=== PATIENT | female | born 1960 | race Caucasian/White ===

== ENCOUNTER 2017-06-30 13:00 | Inpatient (IN) | payer MEDICAID ==
[~2017-06-30] VITALS: Ht 139.7 cm; Wt 89.1 kg
[~2017-06-30 13:00] MED LIST: BUTA-281 PO; DIPH25CA83 PO; GLYC1DRO OP; HYDR-3972 PO; MIRT15TA3 PO; QUET50TA PO; TRAM50TA2 PO; VALA10002 PO
[2017-06-30 13:33] LABS: BASOPHILS # (AUTO) 0.1 X10'3 (0-0.2); BASOPHILS % (AUTO) 0.6 % (0-1); EOSINOPHILS # (AUTO) 0.2 X10'3 (0-0.9); EOSINOPHILS % (AUTO) 1.8 % (0-6); HEMATOCRIT 44.1 % (35.0-45.0); HEMOGLOBIN 15.3 g/dl (12.0-16.0); LYMPHOCYTES # (AUTO) 3.6 X10'3 (1.1-4.8); LYMPHOCYTES % (AUTO) 29.4 % (21-51); MEAN CORPUSCULAR HEMOGLOBIN 32.7 PG (27.0-31.0); MEAN CORPUSCULAR HGB CONC 34.6 % (33.0-36.5); MEAN CORPUSCULAR VOLUME 94.6 FL (78-98); MEAN PLATELET VOLUME 7.4 FL (7.4-10.4); MONOCYTES # (AUTO) 0.5 X10'3 (0-0.9); MONOCYTES % (AUTO) 3.8 % (2-12); NEUTROPHILS # (AUTO) 7.8 X10'3 (1.8-7.7); NEUTROPHILS % (AUTO) 64.4 % (42-75); PLATELET COUNT 297 X10'3 (140-440); RED BLOOD COUNT 4.67 X10'6 (4.20-5.60); WHITE BLOOD COUNT 12.1 X10'3 (4.5-11.0)
[2017-06-30 13:44] LABS: INR 0.9 INR; PARTIAL THROMBOPLASTIN TIME 27 SECONDS (22-32); PROTHROMBIN TIME 9.7 SECONDS (9.0-12.0)
[2017-06-30 13:50] LABS: ALANINE AMINOTRANSFERASE 24 U/L (12-78); ALBUMIN 3.8 G/DL (3.4-5.0); ALBUMIN/GLOBULIN RATIO 0.9 (1.1-1.5); ALKALINE PHOSPHATASE 99 IU/L (46-116); ANION GAP 8 (8-16); ASPARTATE AMINO TRANSFERASE 14 U/L (10-37); BILIRUBIN,TOTAL 0.3 MG/DL (0.1-1.0); BLOOD UREA NITROGEN 17 MG/DL (7-18); BUN/CREATININE RATIO 18.9 (6.6-38.0); CALCIUM 9.2 MG/DL (8.5-10.1); CHLORIDE 107 MMOL/L (99-107); GLUCOSE 102 MG/DL (70-104); POTASSIUM 4.3 MMOL/L (3.5-5.1); SODIUM 140 MMOL/L (135-145); TOTAL CARBON DIOXIDE 25.5 MMOL/L (24-32); TOTAL PROTEIN 7.9 G/DL (6.4-8.2); eGFR 65 ML/MIN
[2017-06-30] MEDS ORDERED: normal saline 1000ML IV soln IVB ONE (14:30)
[2017-06-30] MEDS ORDERED: diphenhydrAMINE 50 mg/ml inj IV ONE (14:30)
[2017-06-30] MEDS ORDERED: meclizine 12.5mg tablet PO ONE (14:30)
[2017-06-30] MEDS ORDERED: LORazepam 2 mg/ml vial IV ONE (14:30)
[2017-06-30] MEDS ORDERED: ondansetron/PF 4mg/2ml inj IV ONE (14:30)
[2017-06-30] MEDS ORDERED: metoclopramide 5 mg/ml inj IV ONE (14:30)
[2017-06-30] MEDS ORDERED: morphine 4 MG/ML inj SYRINge IV ONE ×2 (14:45→16:00)
[2017-06-30] MEDS ORDERED: orphenadrine citrate 60mg/2ml inj. IM ONE (16:00)
[2017-06-30] MEDS ORDERED: acetaminophen 325mg tablet PO PRN (18:10)
[2017-06-30] MEDS ORDERED: ondansetron/PF 4mg/2ml inj IV PRN (18:10)
[2017-06-30] MEDS ORDERED: magnesium 4gm in 100ml NS 100 ML IV PRN (18:10)
[2017-06-30] MEDS ORDERED: magnesium Cl slow-release 64mg tablet PO PRN (18:10)
[2017-06-30] MEDS ORDERED: magnesium hydroxide 30ml (MOM) UD suspension PO PRN (18:10)
[2017-06-30] MEDS ORDERED: magnesium 2GM in 50ml NS 50 ML IV PRN (18:10)
[2017-06-30] MEDS ORDERED: aspirin 325mg tablet PO SCH (18:10)
[2017-06-30] MEDS ORDERED: morphine 2 MG/ML inj. syringe IV PRN (18:10)
[2017-06-30] MEDS ORDERED: HYDROmorphone 1 mg/ml syringe IV PRN (18:10)
[2017-06-30] MEDS ORDERED: potassium Cl 20 mEq SR tablet PO PRN ×2 (18:10)
[2017-06-30] MEDS ORDERED: mag hydrox/Alum hydrox/simeth 30ml oral suspension PO PRN (18:10)
[2017-06-30] MEDS ORDERED: potassium Cl 40MEQ/NS 500ml 500 ML IV PRN ×2 (18:10)
[2017-06-30] MEDS: normal saline 1000ml 1,000 ML IV SCH (18:38)
[2017-06-30] MEDS: morphine 5 MG/ML injection IV PRN ×2 (18:39→22:30)
[2017-06-30 19:30] VITALS: BP 141/88
[2017-06-30 19:40] LABS: HEMOGLOBIN A1C 5.5 % (4.5-6.2)
[2017-06-30] MEDS ORDERED: QUETIAPINE FUMARATE 150 MG PO SCH (21:00)
[2017-06-30] MEDS ORDERED: QUEtiapine 25mg tablet PO SCH (21:00)
[2017-06-30] MEDS ORDERED: sertraline 25mg tablet PO SCH (21:00)
[2017-06-30] MEDS ORDERED: mirtazapine 15mg tablet PO SCH (21:20)
[2017-06-30 22:00] VITALS: BP 137/96
[2017-07-01 02:00] VITALS: BP 117/71
[2017-07-01] MEDS: morphine 5 MG/ML injection IV PRN ×2 (02:38→06:38)
[2017-07-01 05:00] VITALS: BP 129/73
[2017-07-01 05:54] LABS: BASOPHILS % (AUTO) 0.3 % (0-1); EOSINOPHILS # (AUTO) 0.2 X10'3 (0-0.9); EOSINOPHILS % (AUTO) 2.4 % (0-6); HEMATOCRIT 35.7 % (35.0-45.0); HEMOGLOBIN 12.2 g/dl (12.0-16.0); LYMPHOCYTES # (AUTO) 3.6 X10'3 (1.1-4.8); LYMPHOCYTES % (AUTO) 43.4 % (21-51); MEAN CORPUSCULAR HEMOGLOBIN 32.4 PG (27.0-31.0); MEAN CORPUSCULAR HGB CONC 34.2 % (33.0-36.5); MEAN CORPUSCULAR VOLUME 94.7 FL (78-98); MEAN PLATELET VOLUME 7.9 FL (7.4-10.4); MONOCYTES # (AUTO) 0.5 X10'3 (0-0.9); MONOCYTES % (AUTO) 5.5 % (2-12); NEUTROPHILS % (AUTO) 48.4 % (42-75); PLATELET COUNT 216 X10'3 (140-440); RED BLOOD COUNT 3.77 X10'6 (4.20-5.60); RED CELL DISTRIBUTION WIDTH 14.1 % (11.5-14.5); WHITE BLOOD COUNT 8.3 X10'3 (4.5-11.0)
[2017-07-01 06:21] LABS: ALBUMIN 2.9 G/DL (3.4-5.0); ANION GAP 9 (8-16); BLOOD UREA NITROGEN 16 MG/DL (7-18); BUN/CREATININE RATIO 17.8 (6.6-38.0); CALCIUM 8.4 MG/DL (8.5-10.1); CHLORIDE 108 MMOL/L (99-107); CHOL/HDL RATIO 5.5 (0.00-4.99); CHOLESTEROL 255 MG/DL (0-200); GLUCOSE 104 MG/DL (70-104); HDL CHOLESTEROL 46 MG/DL (35-60); LDL CHOLESTEROL 180 MG/DL (50-100); MAGNESIUM 2.1 MG/DL (1.5-2.4); POTASSIUM 3.8 MMOL/L (3.5-5.1); SODIUM 142 MMOL/L (135-145); TOTAL CARBON DIOXIDE 24.9 MMOL/L (24-32); TRIGLYCERIDES 124 MG/DL (20-135); eGFR 65 ML/MIN
[2017-07-01] MEDS: normal saline 1000ml 1,000 ML IV SCH (07:32)
[2017-07-01] MEDS ORDERED: K and/or MAG REPLACEMENT MC SCH (08:00)
[2017-07-01] MEDS ORDERED: atorvastatin 20mg tablet PO SCH (08:00)
[2017-07-01] MEDS ORDERED: enoxaparin 40mg/0.4ml syringe SQ SCH (08:00)
[2017-07-01 10:00] VITALS: BP 132/70
== END 2017-07-01 10:15 | disposition left against medical advice (07) | DRG 58 ==
LOC: ER 13:01 → ED HOLD 18:06 → ORTHO 4S 19:22
PROVIDERS: ADMIT Internal Medicine; ATTEND Internal Medicine
DX: G93.2 Benign intracranial hypertension (principal); E43 Unspecified severe protein-calorie malnutrition; I11.0 Hypertensive heart disease with heart failure; I50.9 Heart failure, unspecified; F32.9 Major depressive disorder, single episode, unspecified; G31.9 Degenerative disease of nervous system, unspecified; I48.91 Unspecified atrial fibrillation; Z68.42 Body mass index [BMI] 45.0-49.9, adult; E66.01 Morbid (severe) obesity due to excess calories; F17.210 Nicotine dependence, cigarettes, uncomplicated; F41.9 Anxiety disorder, unspecified; G89.4 Chronic pain syndrome; I25.10 Atherosclerotic heart disease of native coronary artery without angina pectoris; Z86.711 Personal history of pulmonary embolism; Z86.73 Personal history of transient ischemic attack (TIA), and cerebral infarction without residual deficits; Z90.49 Acquired absence of other specified parts of digestive tract; Z53.21 Procedure and treatment not carried out due to patient leaving prior to being seen by health care provider
CPT/HCPCS: 36415; 70450; 71045; 80048; 80053; 80061; 82948; 83036; 83735; 84484; 85025; 85610; 85730; 87070; 92616; 93005; 93306; 96361; 96372; 96374; 96375; 97161; 97530; 99285; J1200; J1650; J2060; J2270; J2360; J2405; J2765; J7030; J8597

== ENCOUNTER 2017-07-10 13:59 | Emergency (ER) | payer MEDICAID ==
[~2017-07-10] VITALS: Ht 139.7 cm; Wt 85.0 kg
[~2017-07-10 13:59] MED LIST changes: -DIPH25CA83 PO; -GLYC1DRO OP; -VALA10002 PO
[2017-07-10] MEDS ORDERED: ondansetron 4mg rapidly disintigrating tab PO ONE (14:10)
[2017-07-10] MEDS ORDERED: morphine 4 MG/ML inj SYRINge IM ONE (14:10)
[2017-07-10] MEDS ORDERED: morphine 5 MG/ML injection IM ONE (14:25)
[2017-07-10] MEDS ORDERED: morphine 8mg/ml inj. syringe ONE (14:26)
[2017-07-10] MEDS ORDERED: morphine 8mg/ml inj. syringe IM ONE (14:30)
[2017-07-10 16:28] VITALS: BP 137/99
== END 2017-07-10 16:30 | disposition home or self-care (01) ==
LOC: ER 14:00
DX: S63.501A Unspecified sprain of right wrist, initial encounter (principal); S40.011A Contusion of right shoulder, initial encounter; S50.01XA Contusion of right elbow, initial encounter; I11.0 Hypertensive heart disease with heart failure; I50.9 Heart failure, unspecified; I25.10 Atherosclerotic heart disease of native coronary artery without angina pectoris; G89.29 Other chronic pain; E11.9 Type 2 diabetes mellitus without complications; I48.91 Unspecified atrial fibrillation; Z86.73 Personal history of transient ischemic attack (TIA), and cerebral infarction without residual deficits; Z86.711 Personal history of pulmonary embolism; Z90.49 Acquired absence of other specified parts of digestive tract; Z90.710 Acquired absence of both cervix and uterus; Z88.0 Allergy status to penicillin; Z88.6 Allergy status to analgesic agent; Z88.8 Allergy status to other drugs, medicaments and biological substances; Z91.010 Allergy to peanuts; W01.0XXA Fall on same level from slipping, tripping and stumbling without subsequent striking against object, initial encounter; Y93.89 Activity, other specified; Y92.89 Other specified places as the place of occurrence of the external cause; Y99.8 Other external cause status; Z88.1 Allergy status to other antibiotic agents; Z91.018 Allergy to other foods
CPT/HCPCS: 73030; 73080; 73110; 96372; 99284; A4565; J2270

== ENCOUNTER 2017-07-30 08:04 | Emergency (ER) | payer MEDICAID ==
[~2017-07-30] VITALS: Ht 144.8 cm; Wt 89.4 kg
[~2017-07-30 08:04] MED LIST changes: -TRAM50TA2 PO
[2017-07-30] MEDS ORDERED: normal saline 1000ML IV soln IVB ONE (09:05)
[2017-07-30] MEDS ORDERED: morphine 4 MG/ML inj SYRINge IV ONE (09:10)
[2017-07-30] MEDS ORDERED: diphenhydrAMINE 50 mg/ml inj IV ONE (09:10)
[2017-07-30] MEDS ORDERED: LORazepam 2 mg/ml vial IV ONE (09:10)
[2017-07-30] MEDS ORDERED: metoclopramide 5 mg/ml inj IV ONE (09:10)
[2017-07-30 09:42] LABS: BASOPHILS % (AUTO) 0.3 % (0-1); EOSINOPHILS # (AUTO) 0.2 X10'3 (0-0.9); EOSINOPHILS % (AUTO) 1.6 % (0-6); HEMATOCRIT 43.1 % (35.0-45.0); HEMOGLOBIN 15.1 g/dl (12.0-16.0); LYMPHOCYTES # (AUTO) 2.9 X10'3 (1.1-4.8); MEAN CORPUSCULAR HEMOGLOBIN 33.1 PG (27.0-31.0); MEAN CORPUSCULAR VOLUME 94.6 FL (78-98); MEAN PLATELET VOLUME 7.4 FL (7.4-10.4); MONOCYTES # (AUTO) 0.3 X10'3 (0-0.9); MONOCYTES % (AUTO) 2.5 % (2-12); NEUTROPHILS # (AUTO) 9.3 X10'3 (1.8-7.7); NEUTROPHILS % (AUTO) 72.6 % (42-75); PLATELET COUNT 266 X10'3 (140-440); RED BLOOD COUNT 4.56 X10'6 (4.20-5.60); RED CELL DISTRIBUTION WIDTH 14.2 % (11.5-14.5); WHITE BLOOD COUNT 12.8 X10'3 (4.5-11.0)
[2017-07-30 09:52] LABS: PARTIAL THROMBOPLASTIN TIME 26 SECONDS (22-32); PROTHROMBIN TIME 9.9 SECONDS (9.0-12.0)
[2017-07-30] MEDS ORDERED: diphenhydrAMINE 50 mg/ml inj ONE (10:34)
[2017-07-30 11:46] LABS: ALANINE AMINOTRANSFERASE 33 U/L (12-78); ALBUMIN 3.5 G/DL (3.4-5.0); ALBUMIN/GLOBULIN RATIO 0.9 (1.1-1.5); ALKALINE PHOSPHATASE 126 IU/L (46-116); ANION GAP 10 (8-16); ASPARTATE AMINO TRANSFERASE 15 U/L (10-37); BILIRUBIN,TOTAL 0.2 MG/DL (0.1-1.0); BLOOD UREA NITROGEN 14 MG/DL (7-18); BUN/CREATININE RATIO 16.1 (6.6-38.0); CALCIUM 8.8 MG/DL (8.5-10.1); CHLORIDE 105 MMOL/L (99-107); CREATININE 0.87 MG/DL (0.40-0.90); GLUCOSE 94 MG/DL (70-104); POTASSIUM 4.1 MMOL/L (3.5-5.1); SODIUM 140 MMOL/L (135-145); TOTAL CARBON DIOXIDE 24.6 MMOL/L (24-32); TOTAL PROTEIN 7.6 G/DL (6.4-8.2); eGFR 68 ML/MIN
[2017-07-30 11:49] LABS: ETHANOL < 0.010 GM/DL (0.0-0.010)
[2017-07-30 12:32] VITALS: BP 125/97
[2017-07-30 12:50] LABS: CLARITY,URINE SLIGHTLY CLOUDY (Clear); COLOR,URINE YELLOW (Yellow); GLUCOSE, URINE NEGATIVE (Neg); KETONES,URINE NEGATIVE (Neg); LEUKOCYTE ESTERASE ,URINE NEGATIVE (Neg); NITRITES, URINE NEGATIVE (Neg); OCCULT BLOOD,URINE LARGE (Neg); PROTEIN,URINE TRACE mg/dl (Neg); UROBILINOGEN,URINE 0.2 E.U/dL (0.2-1.0)
[2017-07-30 13:01] LABS: UA COLLECTION TYPE CLN CATCH MIDSTREAM
[2017-07-30 13:02] LABS: BACTERIA,URINE 2+ /HPF (Neg); MUCUS STRANDS FEW /LPF (Neg); RBC,URINE 20-50 /HPF (0-2); SQUAMOUS EPITHELIAL CELL,UR MANY /LPF (FEW); WBC,URINE 0-4 /HPF (0-4)
[2017-07-30 13:03] LABS: URINE AMPHETAMINE SCREEN NEGATIVE (Neg); URINE BARBITUATE SCREEN POSITIVE (Neg); URINE BENZODIAZEPINES SCREEN NEGATIVE (Neg); URINE CANNABINOID SCREEN NEGATIVE (Neg); URINE COCAINE SCREEN NEGATIVE (Neg); URINE METHADONE SCREEN NEGATIVE (Neg); URINE OPIATE SCREEN POSITIVE (Neg); URINE PHENCYCLIDINE SCREEN NEGATIVE (Neg)
== END 2017-07-30 12:25 | disposition home or self-care (01) ==
LOC: ER 08:05
DX: R51 Headache (principal); G93.2 Benign intracranial hypertension; R11.2 Nausea with vomiting, unspecified; G89.29 Other chronic pain; G43.909 Migraine, unspecified, not intractable, without status migrainosus; Z86.73 Personal history of transient ischemic attack (TIA), and cerebral infarction without residual deficits; I10 Essential (primary) hypertension; I48.91 Unspecified atrial fibrillation; Z86.14 Personal history of Methicillin resistant Staphylococcus aureus infection; Z90.49 Acquired absence of other specified parts of digestive tract; Z90.710 Acquired absence of both cervix and uterus; Z88.0 Allergy status to penicillin; Z88.6 Allergy status to analgesic agent; Z88.1 Allergy status to other antibiotic agents; Z88.8 Allergy status to other drugs, medicaments and biological substances; Z91.018 Allergy to other foods; Z91.010 Allergy to peanuts; Z56.0 Unemployment, unspecified
CPT/HCPCS: 36415; 70450; 71045; 80053; 80305; 80320; 81001; 84484; 85025; 85610; 85730; 93005; 96361; 96374; 96375; 99285; J1200; J2060; J2270; J7030

== ENCOUNTER 2017-10-09 19:27 | Emergency (ER) | payer MEDICAID ==
[~2017-10-09] VITALS: Ht 142.2 cm; Wt 86.8 kg
[2017-10-09] MEDS ORDERED: HYDROcodone/acetaminophen 5mg/325mg tablet PO ONE (20:30)
[2017-10-09 20:53] VITALS: BP 134/114
[2017-10-11] MEDS ORDERED: TRAM50TA2 PO (14:15)
== END 2017-10-09 20:56 | disposition home or self-care (01) ==
LOC: ER 19:27
DX: M25.562 Pain in left knee (principal); I10 Essential (primary) hypertension; G43.909 Migraine, unspecified, not intractable, without status migrainosus; G89.29 Other chronic pain; I48.91 Unspecified atrial fibrillation; Z86.73 Personal history of transient ischemic attack (TIA), and cerebral infarction without residual deficits; Z86.14 Personal history of Methicillin resistant Staphylococcus aureus infection; Z90.49 Acquired absence of other specified parts of digestive tract; Z90.710 Acquired absence of both cervix and uterus; Z88.0 Allergy status to penicillin; Z88.6 Allergy status to analgesic agent; Z88.1 Allergy status to other antibiotic agents; Z91.010 Allergy to peanuts; Z91.018 Allergy to other foods; Z56.0 Unemployment, unspecified
CPT/HCPCS: 99284

== ENCOUNTER 2017-10-12 05:29 | Inpatient (IN) | payer MEDICAID ==
[2017-10-11 15:17] LABS: BASOPHILS # (AUTO) 0.1 X10'3 (0-0.2); BASOPHILS % (AUTO) 0.8 % (0-1); EOSINOPHILS # (AUTO) 0.2 X10'3 (0-0.9); EOSINOPHILS % (AUTO) 2.3 % (0-6); LYMPHOCYTES # (AUTO) 3.9 X10'3 (1.1-4.8); LYMPHOCYTES % (AUTO) 40.6 % (21-51); MEAN CORPUSCULAR HGB CONC 34.5 % (33.0-36.5); MEAN CORPUSCULAR VOLUME 95.4 FL (78-98); MEAN PLATELET VOLUME 8.1 FL (7.4-10.4); MONOCYTES # (AUTO) 0.4 X10'3 (0-0.9); NEUTROPHILS % (AUTO) 52.3 % (42-75); PRE OP HEMATOCRIT 41.3 % (35.0-45.0); PRE OP HEMOGLOBIN 14.3 g/dL (12.0-16.0); PRE OP PLATELET COUNT 260 X10'3 (140-440); RED BLOOD COUNT 4.33 X10'6 (4.20-5.60); RED CELL DISTRIBUTION WIDTH 14.4 % (11.5-14.5)
[2017-10-11 15:36] LABS: ALBUMIN 3.4 G/DL (3.4-5.0); ALBUMIN/GLOBULIN RATIO 0.9 (1.1-1.5); ALKALINE PHOSPHATASE 144 IU/L (46-116); BLOOD UREA NITROGEN 10 MG/DL (7-18); BUN/CREATININE RATIO 11.4 (6.6-38.0); CALCIUM 8.8 MG/DL (8.5-10.1); CHLORIDE 106 MMOL/L (99-107); CREATININE 0.88 MG/DL (0.40-0.90); PRE OP ANION GAP 9 (8-16); PRE OP AST 87 U/L (10-37); PRE OP BILIRUB, TOTAL 0.3 MG/DL (0.0-1.0); PRE OP GLUCOSE 115 MG/DL (70-104); PRE OP POTASSIUM 3.7 MMOL/L (3.4-5.1); PRE OP SODIUM 142 MMOL/L (135-145); TOTAL CARBON DIOXIDE 26.8 MMOL/L (24-32); eGFR 67 ML/MIN
[2017-10-11 15:39] LABS: PRE OP ALT 109 U/L (30-65)
[2017-10-12] VITALS (21 sets, daily range): BP systolic 104–151; BP diastolic 54–116
[~2017-10-12] VITALS: Ht 147.3 cm; Wt 86.6 kg
[~2017-10-12 05:29] MED LIST changes: +TRAM50TA2 PO; +ringers solution, lacted 1,000 ML IV SCH
[2017-10-12] MEDS ORDERED: famotidine 20mg tablet PO ONE (05:30)
[2017-10-12] MEDS ORDERED: LIDOcaine 1% (10mg/ml) 2ml vial ONE (06:04)
[2017-10-12] MEDS ORDERED: TRANEXAMIC ACID IV ONE ×2 (06:15→08:00)
[2017-10-12] MEDS ORDERED: NORMAL SALINE IV ONE ×2 (06:15→08:00)
[2017-10-12] MEDS ORDERED: scopolamine 1.5mg patch.TD72 TD ONE (06:35)
[2017-10-12] MEDS ORDERED: ROPIVAcaine 0.5% (5mg/ml) 30ml vial ONE (06:53)
[2017-10-12] MEDS ORDERED: cloNIDine hcl/PF 100mcg/ml inj ONE (06:53)
[2017-10-12] MEDS ORDERED: MIDAZolam 5mg/5ml vial ONE (06:57)
[2017-10-12] MEDS ORDERED: fentaNYL /PF 50mcg/ml 5ml ampule ONE (06:57)
[2017-10-12] MEDS ORDERED: clindamycin phosphate 150mg/ml inj. ONE (07:48)
[2017-10-12] MEDS ORDERED: ondansetron/PF 4mg/2ml inj ONE (07:52)
[2017-10-12] MEDS ORDERED: dexamethasone sod phosphate 4mg/ml inj. ONE (07:53)
[2017-10-12] MEDS: traMADol 50MG tablet PO SCH ×3 (08:00→20:41)
[2017-10-12] MEDS ORDERED: ringers solution, lacted 1,000 ML IV SCH (08:13)
[2017-10-12] MEDS ORDERED: ondansetron/PF 4mg/2ml inj IV PRN ×2 (08:15→08:30)
[2017-10-12] MEDS ORDERED: fentaNYL/PF 50MCG/1 ML 2ML syringe IV PRN ×2 (08:15)
[2017-10-12] MEDS ORDERED: hydrALAZINE 20mg/ml inj. IV PRN (08:15)
[2017-10-12] MEDS ORDERED: labetalol 20mg/4ml (5mg/ml) syringe IV PRN (08:15)
[2017-10-12] MEDS ORDERED: morphine 4 MG/ML inj SYRINge IV PRN ×2 (08:15)
[2017-10-12] MEDS ORDERED: magnesium hydroxide 30ml (MOM) UD suspension PO PRN (08:30)
[2017-10-12] MEDS ORDERED: acetaminophen 325mg tablet PO PRN (08:30)
[2017-10-12] MEDS ORDERED: HYDROmorphone inj. 0.5 MG/0.5 ML DISP.SYRIN IV PRN ×2 (08:30)
[2017-10-12] MEDS ORDERED: HYDROcodone/acetaminophen 10/325mg tab PO PRN ×2 (08:30)
[2017-10-12] MEDS ORDERED: diphenhydrAMINE 25mg capsule PO PRN ×2 (08:30)
[2017-10-12] MEDS ORDERED: bisacodyl 10mg suppository rectal RC PRN (08:30)
[2017-10-12] MEDS: aspirin 325mg tablet PO SCH (08:30)
[2017-10-12 11:08] LABS: APPEARANCE,SYNOVIAL FLUID CLOUDY; COLOR,SYNOVIAL FLUID YELLOW
[2017-10-12 11:09] LABS: NEUTROPHILS,SYNOVIAL FLUID 15 % (0-25); SYN RBC 530 /CU MM (0); SYN WBC 145 /CU MM (0-200)
[2017-10-12 11:11] LABS: LYMPHOCYTES,SYNOVIAL FLUID 65 % (0-75); MONOCYTES,SYNOVIAL FLUID 20 % (0-0)
[2017-10-12] MEDS ORDERED: diphenhydrAMINE 50 mg/ml inj IV PRN (11:50)
[2017-10-12] MEDS ORDERED: butalbital/acetaminophen/caffeine (Fioricet) tablet PO PRN (12:00)
[2017-10-12] MEDS: acetaminophen 325mg tablet PO SCH ×2 (12:45→20:00)
[2017-10-12] MEDS ORDERED: ketorolac tromethamine 15mg/ml inj. IV SCH (14:00)
[2017-10-12] MEDS ORDERED: traMADol 50MG tablet PO SCH (14:00)
[2017-10-12] MEDS ORDERED: oxyCODONE IR 5mg (immed. release) tablet PO PRN (16:00)
[2017-10-12] MEDS: potassium cl 20mEq in 1/2 NS 1,000 ML IV SCH ×2 (16:21→20:00)
[2017-10-12] MEDS: clindamycin-Cleocin 900mg/D5W 50 ML IV SCH (16:21)
[2017-10-12] MEDS: oxyCODONE IR 5mg (immed. release) tablet PO PRN ×2 (16:22→20:42)
[2017-10-12] MEDS ORDERED: vancomycin/NS 1 GM ADD-VANTAGE 250 ML IV SCH (20:00)
[2017-10-12] MEDS: lactobacillus rhamnosus 10,000 MMU CELLS/CAPSULE PO SCH (20:41)
[2017-10-12] MEDS ORDERED: non-formulary drug (Mirtazapine (Remeron) 1 TAB) PO SCH (21:00)
[2017-10-12] MEDS ORDERED: quetiapine 100mg tablet PO SCH (21:00)
[2017-10-12] MEDS ORDERED: sennosides 8.6mg tablet PO SCH (21:00)
[2017-10-12] MEDS ORDERED: QUETIAPINE FUMARATE 150 MG PO SCH (21:00)
[2017-10-12] MEDS ORDERED: mirtazapine 15mg tablet PO SCH (21:00)
[2017-10-13] MEDS: clindamycin-Cleocin 900mg/D5W 50 ML IV SCH ×2 (00:19→08:14)
[2017-10-13] MEDS: oxyCODONE IR 5mg (immed. release) tablet PO PRN ×4 (00:20→12:17)
[2017-10-13 02:00] VITALS: BP 110/66
[2017-10-13] MEDS: acetaminophen 325mg tablet PO SCH ×3 (02:00→13:18)
[2017-10-13] MEDS: traMADol 50MG tablet PO SCH ×3 (02:21→15:19)
[2017-10-13] MEDS: potassium cl 20mEq in 1/2 NS 1,000 ML IV SCH ×2 (02:21→08:27)
[2017-10-13 04:51] LABS: BASOPHILS % (AUTO) 0.2 % (0-1); EOSINOPHILS # (AUTO) 0.2 X10'3 (0-0.9); HEMATOCRIT 37.3 % (35.0-45.0); HEMOGLOBIN 12.6 g/dl (12.0-16.0); LYMPHOCYTES # (AUTO) 3.8 X10'3 (1.1-4.8); MEAN CORPUSCULAR HEMOGLOBIN 32.5 PG (27.0-31.0); MEAN CORPUSCULAR HGB CONC 33.9 % (33.0-36.5); MEAN CORPUSCULAR VOLUME 95.7 FL (78-98); MEAN PLATELET VOLUME 8.1 FL (7.4-10.4); MONOCYTES # (AUTO) 0.7 X10'3 (0-0.9); MONOCYTES % (AUTO) 4.7 % (2-12); NEUTROPHILS # (AUTO) 9.9 X10'3 (1.8-7.7); NEUTROPHILS % (AUTO) 68.1 % (42-75); PLATELET COUNT 218 X10'3 (140-440); RED CELL DISTRIBUTION WIDTH 13.9 % (11.5-14.5); WHITE BLOOD COUNT 14.6 X10'3 (4.5-11.0)
[2017-10-13] MEDS ORDERED: clindamycin-Cleocin 900mg/D5W 50 ML IV ONE (05:30)
[2017-10-13] MEDS ORDERED: vancomycin inj 1,500 MG in normal saline 300ml IV soln IV ONE (05:30)
[2017-10-13 07:01] VITALS: BP 147/72
[2017-10-13 07:51] LABS: ANION GAP 8 (8-16); CHLORIDE 106 MMOL/L (99-107); POTASSIUM 4.5 MMOL/L (3.5-5.1); SODIUM 140 MMOL/L (135-145); TOTAL CARBON DIOXIDE 26.5 MMOL/L (24-32)
[2017-10-13] MEDS: lactobacillus rhamnosus 10,000 MMU CELLS/CAPSULE PO SCH (08:13)
[2017-10-13] MEDS: aspirin 325mg tablet PO SCH (08:14)
[2017-10-13 11:13] VITALS: BP 120/69
[2017-10-13] MEDS ORDERED: celeCOXIB 100mg capsule PO SCH (20:00)
[2017-10-14] MEDS ORDERED: acetaminophen 325mg tablet PO PRN (08:30)
== END 2017-10-13 16:16 | disposition home or self-care (01) | DRG 317 ==
LOC: PAS IN 05:29 → EDSTATUS 07:00 → ORTHO 4S 10:25
PROVIDERS: ADMIT Orthopaedic Surgery; ATTEND Orthopaedic Surgery
PROC: 0LSR0ZZ Reposition Left Knee Tendon, Open Approach (ICD-10-PCS; principal; 2017-10-12 06:55)
DX: S76.112A Strain of left quadriceps muscle, fascia and tendon, initial encounter (principal); I10 Essential (primary) hypertension; I48.91 Unspecified atrial fibrillation; F41.0 Panic disorder [episodic paroxysmal anxiety]; G43.909 Migraine, unspecified, not intractable, without status migrainosus; G93.2 Benign intracranial hypertension; Z96.652 Presence of left artificial knee joint; F43.10 Post-traumatic stress disorder, unspecified; X58.XXXA Exposure to other specified factors, initial encounter; Y93.89 Activity, other specified; Y92.89 Other specified places as the place of occurrence of the external cause; G89.29 Other chronic pain
CPT/HCPCS: 36415; 71045; 80051; 80053; 85025; 87070; 87075; 89051; 93005; 97116; 97162; 97530; A6449; A7000; J0735; J1100; J1200; J2250; J2270; J2405; J2795; J3010; J3370; J3490; J7030; J7120

== ENCOUNTER 2017-10-24 16:23 | Emergency (ER) | payer MEDICAID ==
[~2017-10-24] VITALS: Ht 144.8 cm; Wt 87.6 kg
[~2017-10-24 16:23] MED LIST changes: +CLIN-80 PO; +ONDA4TAB6 PO; -ringers solution, lacted 1,000 ML IV SCH
[2017-10-24] MEDS ORDERED: clindamycin 600mg/D5W 50ml 50 ML IV ONE (17:15)
[2017-10-24] MEDS ORDERED: ondansetron/PF 4mg/2ml inj IV ONE (17:15)
[2017-10-24] MEDS ORDERED: vancomycin/NS 1 GM ADD-VANTAGE 250 ML IV ONE (17:15)
[2017-10-24] MEDS ORDERED: morphine 4 MG/ML inj SYRINge IV ONE (17:15)
[2017-10-24 17:56] LABS: BASOPHILS # (AUTO) 0.1 X10'3 (0-0.2); BASOPHILS % (AUTO) 0.7 % (0-1); EOSINOPHILS # (AUTO) 0.1 X10'3 (0-0.9); HEMATOCRIT 40.8 % (35.0-45.0); HEMOGLOBIN 13.9 g/dl (12.0-16.0); LYMPHOCYTES # (AUTO) 2.8 X10'3 (1.1-4.8); LYMPHOCYTES % (AUTO) 26.2 % (21-51); MEAN CORPUSCULAR HEMOGLOBIN 32.5 PG (27.0-31.0); MEAN CORPUSCULAR HGB CONC 34.1 % (33.0-36.5); MEAN CORPUSCULAR VOLUME 95.4 FL (78-98); MEAN PLATELET VOLUME 8.1 FL (7.4-10.4); MONOCYTES # (AUTO) 0.3 X10'3 (0-0.9); MONOCYTES % (AUTO) 2.9 % (2-12); NEUTROPHILS # (AUTO) 7.4 X10'3 (1.8-7.7); NEUTROPHILS % (AUTO) 69.2 % (42-75); PLATELET COUNT 347 X10'3 (140-440); RED BLOOD COUNT 4.27 X10'6 (4.20-5.60); RED CELL DISTRIBUTION WIDTH 14.3 % (11.5-14.5); WHITE BLOOD COUNT 10.6 X10'3 (4.5-11.0)
[2017-10-24 17:58] LABS: PARTIAL THROMBOPLASTIN TIME 27 SECONDS (22-32)
[2017-10-24 18:03] LABS: ALANINE AMINOTRANSFERASE 49 U/L (12-78); ALBUMIN 3.4 G/DL (3.4-5.0); ALBUMIN/GLOBULIN RATIO 0.9 (1.1-1.5); ALKALINE PHOSPHATASE 174 IU/L (46-116); ANION GAP 10 (8-16); ASPARTATE AMINO TRANSFERASE 16 U/L (10-37); BILIRUBIN,TOTAL 0.3 MG/DL (0.1-1.0); BLOOD UREA NITROGEN 9 MG/DL (7-18); BUN/CREATININE RATIO 10.1 (6.6-38.0); CALCIUM 9.2 MG/DL (8.5-10.1); CHLORIDE 104 MMOL/L (99-107); CREATININE 0.89 MG/DL (0.40-0.90); GLUCOSE 102 MG/DL (70-104); MAGNESIUM 2.2 MG/DL (1.5-2.4); POTASSIUM 3.7 MMOL/L (3.5-5.1); SODIUM 141 MMOL/L (135-145); TOTAL CARBON DIOXIDE 27.4 MMOL/L (24-32); TOTAL PROTEIN 7.4 G/DL (6.4-8.2); eGFR 66 ML/MIN
[2017-10-24 20:01] VITALS: BP 161/66
== END 2017-10-24 20:03 | disposition home or self-care (01) ==
LOC: ER 16:23
DX: M25.562 Pain in left knee (principal); R11.2 Nausea with vomiting, unspecified; I10 Essential (primary) hypertension; G43.909 Migraine, unspecified, not intractable, without status migrainosus; G89.29 Other chronic pain; Z86.14 Personal history of Methicillin resistant Staphylococcus aureus infection; Z86.73 Personal history of transient ischemic attack (TIA), and cerebral infarction without residual deficits; F17.200 Nicotine dependence, unspecified, uncomplicated; Z88.6 Allergy status to analgesic agent; Z88.1 Allergy status to other antibiotic agents; Z91.010 Allergy to peanuts; Z88.0 Allergy status to penicillin; Z88.8 Allergy status to other drugs, medicaments and biological substances; Z91.018 Allergy to other foods; Z79.899 Other long term (current) drug therapy
CPT/HCPCS: 36415; 80053; 83605; 83735; 84145; 85025; 85610; 85730; 96365; 96375; 99284; J2270; J2405; J3370; J3490; J7030

== ENCOUNTER 2017-12-15 15:46 | Emergency (ER) | payer MEDICAID ==
[~2017-12-15] VITALS: Ht 142.2 cm; Wt 80.5 kg
[~2017-12-15 15:46] MED LIST changes: -CLIN-80 PO
[2017-12-15 16:19] LABS: BASOPHILS # (AUTO) 0.2 X10'3 (0-0.2); EOSINOPHILS # (AUTO) 0.2 X10'3 (0-0.9); EOSINOPHILS % (AUTO) 1.2 % (0-6); HEMATOCRIT 48.3 % (35.0-45.0); HEMOGLOBIN 16.6 g/dl (12.0-16.0); LYMPHOCYTES # (AUTO) 4.7 X10'3 (1.1-4.8); LYMPHOCYTES % (AUTO) 30.2 % (21-51); MEAN CORPUSCULAR HEMOGLOBIN 32.4 PG (27.0-31.0); MEAN CORPUSCULAR HGB CONC 34.3 % (33.0-36.5); MEAN CORPUSCULAR VOLUME 94.5 FL (78-98); MEAN PLATELET VOLUME 8.2 FL (7.4-10.4); MONOCYTES # (AUTO) 0.2 X10'3 (0-0.9); MONOCYTES % (AUTO) 1.4 % (2-12); NEUTROPHILS # (AUTO) 10.3 X10'3 (1.8-7.7); NEUTROPHILS % (AUTO) 66.2 % (42-75); PLATELET COUNT 327 X10'3 (140-440); RED BLOOD COUNT 5.12 X10'6 (4.20-5.60); RED CELL DISTRIBUTION WIDTH 14.1 % (11.5-14.5); WHITE BLOOD COUNT 15.6 X10'3 (4.5-11.0)
[2017-12-15 16:29] LABS: PARTIAL THROMBOPLASTIN TIME 27 SECONDS (22-32); PROTHROMBIN TIME 10.7 SECONDS (9.0-12.0)
[2017-12-15 16:34] LABS: ALANINE AMINOTRANSFERASE 27 U/L (12-78); ALBUMIN 3.8 G/DL (3.4-5.0); ALBUMIN/GLOBULIN RATIO 0.8 (1.1-1.5); ALKALINE PHOSPHATASE 140 IU/L (46-116); ANION GAP 15 (8-16); ASPARTATE AMINO TRANSFERASE 16 U/L (10-37); BILIRUBIN,TOTAL 0.4 MG/DL (0.1-1.0); BLOOD UREA NITROGEN 10 MG/DL (7-18); BUN/CREATININE RATIO 7.3 (6.6-38.0); CALCIUM 9.4 MG/DL (8.5-10.1); CHLORIDE 104 MMOL/L (99-107); CREATININE 1.37 MG/DL (0.40-0.90); GLUCOSE 154 MG/DL (70-104); POTASSIUM 3.4 MMOL/L (3.5-5.1); SODIUM 139 MMOL/L (135-145); TOTAL PROTEIN 8.3 G/DL (6.4-8.2); eGFR 40 ML/MIN
[2017-12-15 17:36] VITALS: BP 144/74
[2017-12-17] MEDS ORDERED: DOXY100C43 PO (12:26)
[2017-12-17] MEDS ORDERED: SULF1TAB49 PO (12:26)
[2017-12-17] MEDS ORDERED: MUPI22OI30 TOP (12:28)
== END 2017-12-15 17:42 | disposition home or self-care (01) ==
LOC: ER 15:46
DX: R07.9 Chest pain, unspecified (principal); R11.2 Nausea with vomiting, unspecified; G43.909 Migraine, unspecified, not intractable, without status migrainosus; I48.91 Unspecified atrial fibrillation; I12.9 Hypertensive chronic kidney disease with stage 1 through stage 4 chronic kidney disease, or unspecified chronic kidney disease; N18.9 Chronic kidney disease, unspecified; G89.29 Other chronic pain; Z86.14 Personal history of Methicillin resistant Staphylococcus aureus infection; Z90.49 Acquired absence of other specified parts of digestive tract; Z90.710 Acquired absence of both cervix and uterus; Z88.0 Allergy status to penicillin; Z88.6 Allergy status to analgesic agent; Z88.1 Allergy status to other antibiotic agents; Z91.010 Allergy to peanuts; Z88.8 Allergy status to other drugs, medicaments and biological substances; Z91.018 Allergy to other foods; Z79.899 Other long term (current) drug therapy; Z56.0 Unemployment, unspecified
CPT/HCPCS: 36415; 80053; 84484; 85025; 85379; 85610; 85730; 93005; 99285

== ENCOUNTER 2017-12-19 14:11 | Emergency (ER) | payer MEDICAID ==
[~2017-12-19] VITALS: Ht 142.2 cm; Wt 48.5 kg
[~2017-12-19 14:11] MED LIST changes: +DOXY100C43 PO; +MUPI22OI30 TOP
[2017-12-19 14:16] VITALS: BP 115/79
[2017-12-19] MEDS ORDERED: LIDOcaine 1.5% w/epinephrine 1:200,000 5ml ampul IJ ONE (14:45)
[2017-12-19] MEDS ORDERED: ONDA4TAB6 PO (15:11)
== END 2017-12-19 15:20 | disposition home or self-care (01) ==
LOC: ER 14:12
DX: L02.01 Cutaneous abscess of face (principal); G43.909 Migraine, unspecified, not intractable, without status migrainosus; I10 Essential (primary) hypertension; I48.91 Unspecified atrial fibrillation; Z86.711 Personal history of pulmonary embolism; Z86.14 Personal history of Methicillin resistant Staphylococcus aureus infection; Z86.73 Personal history of transient ischemic attack (TIA), and cerebral infarction without residual deficits; Z90.49 Acquired absence of other specified parts of digestive tract; Z90.710 Acquired absence of both cervix and uterus; Z98.890 Other specified postprocedural states; Z56.0 Unemployment, unspecified; Z88.0 Allergy status to penicillin; Z88.6 Allergy status to analgesic agent; Z91.010 Allergy to peanuts; Z88.8 Allergy status to other drugs, medicaments and biological substances; Z79.899 Other long term (current) drug therapy
CPT/HCPCS: 10060; 99283; J3490

== ENCOUNTER 2018-01-11 18:15 | Emergency (ER) | payer MEDICAID ==
[~2018-01-11] VITALS: Ht 142.2 cm; Wt 84.1 kg
[~2018-01-11 18:15] MED LIST changes: -DOXY100C43 PO; -MUPI22OI30 TOP
[2018-01-11 19:38] VITALS: BP 135/89
== END 2018-01-11 19:39 | disposition home or self-care (01) ==
LOC: ER 18:15
DX: M79.662 Pain in left lower leg (principal); G43.909 Migraine, unspecified, not intractable, without status migrainosus; I48.91 Unspecified atrial fibrillation; I10 Essential (primary) hypertension; G89.29 Other chronic pain; Z90.49 Acquired absence of other specified parts of digestive tract; Z98.890 Other specified postprocedural states; Z90.710 Acquired absence of both cervix and uterus; Z56.0 Unemployment, unspecified; Z86.711 Personal history of pulmonary embolism; Z86.73 Personal history of transient ischemic attack (TIA), and cerebral infarction without residual deficits; Z88.0 Allergy status to penicillin; Z88.6 Allergy status to analgesic agent; Z91.010 Allergy to peanuts; Z88.8 Allergy status to other drugs, medicaments and biological substances; Z79.899 Other long term (current) drug therapy; Z96.652 Presence of left artificial knee joint; W19.XXXA Unspecified fall, initial encounter; Y93.89 Activity, other specified; Y92.89 Other specified places as the place of occurrence of the external cause; Y99.9 Unspecified external cause status
CPT/HCPCS: 73590; 99284; A6449

== ENCOUNTER 2018-03-25 16:34 | Emergency (ER) | payer MEDICAID ==
[~2018-03-25] VITALS: Ht 144.8 cm; Wt 79.5 kg
[2018-03-25 16:38] VITALS: BP 135/88
[2018-03-25 17:43] LABS: CLARITY,URINE CLOUDY (Clear); COLOR,URINE YELLOW (Yellow); GLUCOSE, URINE NEGATIVE (Neg); KETONES,URINE NEGATIVE (Neg); LEUKOCYTE ESTERASE ,URINE NEGATIVE (Neg); NITRITES, URINE NEGATIVE (Neg); OCCULT BLOOD,URINE SMALL (Neg); PROTEIN,URINE NEGATIVE (Neg); UROBILINOGEN,URINE 0.2 E.U/dL (0.2-1.0)
[2018-03-25 17:48] LABS: BASOPHILS # (AUTO) 0.2 X10'3 (0-0.2); BASOPHILS % (AUTO) 1.3 % (0-1); EOSINOPHILS # (AUTO) 0.2 X10'3 (0-0.9); EOSINOPHILS % (AUTO) 1.5 % (0-6); HEMATOCRIT 42.4 % (35.0-45.0); HEMOGLOBIN 14.3 g/dl (12.0-16.0); LYMPHOCYTES # (AUTO) 4.3 X10'3 (1.1-4.8); LYMPHOCYTES % (AUTO) 34.8 % (21-51); MEAN CORPUSCULAR HEMOGLOBIN 32.1 PG (27.0-31.0); MEAN CORPUSCULAR HGB CONC 33.7 % (33.0-36.5); MEAN CORPUSCULAR VOLUME 95.4 FL (78-98); MEAN PLATELET VOLUME 8.1 FL (7.4-10.4); MONOCYTES # (AUTO) 0.5 X10'3 (0-0.9); MONOCYTES % (AUTO) 3.8 % (2-12); NEUTROPHILS # (AUTO) 7.2 X10'3 (1.8-7.7); NEUTROPHILS % (AUTO) 58.6 % (42-75); PLATELET COUNT 276 X10'3 (140-440); RED BLOOD COUNT 4.44 X10'6 (4.20-5.60); RED CELL DISTRIBUTION WIDTH 14.3 % (11.5-14.5); WHITE BLOOD COUNT 12.3 X10'3 (4.5-11.0)
[2018-03-25 17:49] LABS: UA COLLECTION TYPE CLN CATCH MIDSTREAM
[2018-03-25 17:58] LABS: BACTERIA,URINE 3+ /HPF (Neg); MUCUS STRANDS MANY /LPF (Neg); SQUAMOUS EPITHELIAL CELL,UR MANY /LPF (FEW)
[2018-03-25] MEDS ORDERED: ondansetron 4mg rapidly disintigrating tab PO ONE (18:00)
[2018-03-25] MEDS ORDERED: diphenhydrAMINE 50 mg/ml inj IM ONE (18:00)
[2018-03-25 18:04] LABS: ALANINE AMINOTRANSFERASE 28 U/L (12-78); ALBUMIN 3.5 G/DL (3.4-5.0); ALBUMIN/GLOBULIN RATIO 0.9 (1.1-1.5); ALKALINE PHOSPHATASE 108 IU/L (46-116); ANION GAP 10 (8-16); ASPARTATE AMINO TRANSFERASE 15 U/L (10-37); BILIRUBIN,TOTAL 0.3 MG/DL (0.1-1.0); BLOOD UREA NITROGEN 11 MG/DL (7-18); BUN/CREATININE RATIO 13.8 (6.6-38.0); CALCIUM 9.2 MG/DL (8.5-10.1); CHLORIDE 106 MMOL/L (99-107); GLUCOSE 91 MG/DL (70-104); POTASSIUM 3.5 MMOL/L (3.5-5.1); SODIUM 142 MMOL/L (135-145); TOTAL CARBON DIOXIDE 26.5 MMOL/L (24-32); TOTAL PROTEIN 7.3 G/DL (6.4-8.2); eGFR 74 ML/MIN
== END 2018-03-25 18:44 | disposition home or self-care (01) ==
LOC: ER 16:36
DX: S30.0XXA Contusion of lower back and pelvis, initial encounter (principal); R11.0 Nausea; R10.9 Unspecified abdominal pain; G43.909 Migraine, unspecified, not intractable, without status migrainosus; I48.91 Unspecified atrial fibrillation; G89.29 Other chronic pain; I25.10 Atherosclerotic heart disease of native coronary artery without angina pectoris; I11.0 Hypertensive heart disease with heart failure; I50.9 Heart failure, unspecified; Z88.0 Allergy status to penicillin; Z88.6 Allergy status to analgesic agent; Z91.010 Allergy to peanuts; Z88.1 Allergy status to other antibiotic agents; Z88.8 Allergy status to other drugs, medicaments and biological substances; Z91.018 Allergy to other foods; Z86.718 Personal history of other venous thrombosis and embolism; Z86.73 Personal history of transient ischemic attack (TIA), and cerebral infarction without residual deficits; Z90.49 Acquired absence of other specified parts of digestive tract; Z90.710 Acquired absence of both cervix and uterus; Z98.890 Other specified postprocedural states; Z56.0 Unemployment, unspecified; X58.XXXA Exposure to other specified factors, initial encounter; Y93.89 Activity, other specified; Y92.89 Other specified places as the place of occurrence of the external cause; Y99.8 Other external cause status
CPT/HCPCS: 36415; 80053; 81001; 85025; 99284; J1200

== ENCOUNTER 2018-07-13 12:51 | Emergency (ER) | payer MEDICAID ==
[~2018-07-13] VITALS: Ht 142.2 cm; Wt 84.0 kg
[2018-07-13 12:58] VITALS: BP 133/102
[2018-07-13 13:44] LABS: URINE HCG NEGATIVE (NEG)
[2018-07-13 13:50] LABS: CLARITY,URINE SLIGHTLY CLOUDY (Clear); COLOR,URINE YELLOW (Yellow); GLUCOSE, URINE NEGATIVE (Neg); KETONES,URINE NEGATIVE (Neg); LEUKOCYTE ESTERASE ,URINE NEGATIVE (Neg); NITRITES, URINE NEGATIVE (Neg); OCCULT BLOOD,URINE MODERATE (Neg); PH,URINE 5.5 (4.8-8.0); PROTEIN,URINE NEGATIVE (Neg); UA COLLECTION TYPE CLN CATCH MIDSTREAM; UROBILINOGEN,URINE 0.2 E.U/dL (0.2-1.0)
[2018-07-13 14:01] LABS: MUCUS STRANDS MANY /LPF (Neg); SQUAMOUS EPITHELIAL CELL,UR MANY /LPF (FEW)
[2018-07-13 14:02] LABS: BACTERIA,URINE 2+ /HPF (Neg); WBC,URINE 0-4 /HPF (0-4)
[2018-07-13 14:03] LABS: RBC,URINE 0-2 /HPF (0-2)
[2018-07-13 14:35] LABS: BASOPHILS # (AUTO) 0.2 X10'3 (0-0.2); BASOPHILS % (AUTO) 1.9 % (0-1); EOSINOPHILS # (AUTO) 0.2 X10'3 (0-0.9); EOSINOPHILS % (AUTO) 1.6 % (0-6); HEMATOCRIT 47.6 % (35.0-45.0); HEMOGLOBIN 15.6 g/dl (12.0-16.0); LYMPHOCYTES # (AUTO) 3.5 X10'3 (1.1-4.8); LYMPHOCYTES % (AUTO) 30.8 % (21-51); MEAN CORPUSCULAR HEMOGLOBIN 31.3 PG (27.0-31.0); MEAN CORPUSCULAR HGB CONC 32.7 g/dL (33.0-36.5); MEAN CORPUSCULAR VOLUME 95.7 FL (78-98); MEAN PLATELET VOLUME 8.4 FL (7.4-10.4); MONOCYTES # (AUTO) 0.5 X10'3 (0-0.9); MONOCYTES % (AUTO) 4.1 % (2-12); NEUTROPHILS % (AUTO) 61.6 % (42-75); PLATELET COUNT 326 X10'3 (140-440); RED BLOOD COUNT 4.97 X10'6 (4.20-5.60); RED CELL DISTRIBUTION WIDTH 13.2 % (11.5-14.5); WHITE BLOOD COUNT 11.4 X10'3 (4.5-11.0)
[2018-07-13 14:47] LABS: ALANINE AMINOTRANSFERASE 25 U/L (12-78); ALBUMIN 3.6 G/DL (3.4-5.0); ALBUMIN/GLOBULIN RATIO 0.9 (1.1-1.5); ALKALINE PHOSPHATASE 108 IU/L (46-116); ANION GAP 10 (8-16); ASPARTATE AMINO TRANSFERASE 13 U/L (10-37); BILIRUBIN,TOTAL 0.4 MG/DL (0.1-1.0); BLOOD UREA NITROGEN 12 MG/DL (7-18); BUN/CREATININE RATIO 13.5 (6.6-38.0); CALCIUM 9.4 MG/DL (8.5-10.1); CHLORIDE 104 MMOL/L (99-107); CREATININE 0.89 MG/DL (0.40-0.90); GLUCOSE 98 MG/DL (70-104); LIPASE 119 U/L (73-393); POTASSIUM 4.2 MMOL/L (3.5-5.1); SODIUM 139 MMOL/L (135-145); TOTAL CARBON DIOXIDE 24.9 MMOL/L (24-32); TOTAL PROTEIN 7.7 G/DL (6.4-8.2); eGFR 66 ML/MIN
[2018-07-13 14:50] LABS: PROTHROMBIN TIME 10.2 SECONDS (9.0-12.0)
--- NOTE | 2018-07-13 20:00 | NUR ---
Debbie HERNDON at bedside to evaluate pt, able to reduce hernia, pt ambar well, pt plans to schedule with PMD for surgery consult
[2018-07-13] MEDS ORDERED: HYDROcodone/acetaminophen 5mg/325mg tablet PO ONE (20:10)
[2018-07-13] MEDS ORDERED: diphenhydrAMINE 25mg capsule PO ONE (20:10)
[2018-07-13] MEDS ORDERED: metoclopramide 5 mg/ml inj IM ONE (20:10)
[2018-07-13] MEDS ORDERED: ONDA4TAB6 PO (20:16)
--- NOTE | 2018-07-13 20:33 | NUR ---
pt not in room
== END 2018-07-13 20:39 | disposition home or self-care (01) ==
LOC: ER 12:52
DX: K43.9 Ventral hernia without obstruction or gangrene (principal); I10 Essential (primary) hypertension; R11.2 Nausea with vomiting, unspecified; I48.91 Unspecified atrial fibrillation; G43.909 Migraine, unspecified, not intractable, without status migrainosus; G89.29 Other chronic pain; Z90.89 Acquired absence of other organs; Z90.49 Acquired absence of other specified parts of digestive tract; Z90.710 Acquired absence of both cervix and uterus; Z56.0 Unemployment, unspecified; Z88.0 Allergy status to penicillin; Z88.6 Allergy status to analgesic agent; Z88.5 Allergy status to narcotic agent; Z91.010 Allergy to peanuts; Z91.018 Allergy to other foods; Z86.14 Personal history of Methicillin resistant Staphylococcus aureus infection
CPT/HCPCS: 36415; 80053; 81001; 81025; 83690; 85025; 85610; 99283

== ENCOUNTER 2018-08-06 21:01 | Emergency (ER) | payer MEDICAID ==
[~2018-08-06] VITALS: Ht 144.8 cm; Wt 84.0 kg
[2018-08-06 21:52] LABS: ALANINE AMINOTRANSFERASE 121 U/L (12-78); ALBUMIN 3.3 G/DL (3.4-5.0); ALBUMIN/GLOBULIN RATIO 0.9 (1.1-1.5); ALKALINE PHOSPHATASE 228 IU/L (46-116); ANION GAP 10 (8-16); ASPARTATE AMINO TRANSFERASE 56 U/L (10-37); BILIRUBIN,TOTAL 0.5 MG/DL (0.1-1.0); BLOOD UREA NITROGEN 8 MG/DL (7-18); CALCIUM 9.3 MG/DL (8.5-10.1); CHLORIDE 104 MMOL/L (99-107); GLUCOSE 112 MG/DL (70-104); POTASSIUM 3.7 MMOL/L (3.5-5.1); SODIUM 137 MMOL/L (135-145); TOTAL CARBON DIOXIDE 22.7 MMOL/L (24-32); TOTAL PROTEIN 7.1 G/DL (6.4-8.2); eGFR 74 ML/MIN
[2018-08-06 22:15] LABS: BASOPHILS # (AUTO) 0.1 X10'3 (0-0.2); BASOPHILS % (AUTO) 1.2 % (0-1); EOSINOPHILS # (AUTO) 0.2 X10'3 (0-0.9); HEMATOCRIT 40.6 % (35.0-45.0); HEMOGLOBIN 13.9 g/dl (12.0-16.0); LYMPHOCYTES # (AUTO) 2.5 X10'3 (1.1-4.8); LYMPHOCYTES % (AUTO) 27.8 % (21-51); MEAN CORPUSCULAR HEMOGLOBIN 32.5 PG (27.0-31.0); MEAN CORPUSCULAR HGB CONC 34.2 g/dL (33.0-36.5); MEAN PLATELET VOLUME 7.7 FL (7.4-10.4); MONOCYTES # (AUTO) 0.5 X10'3 (0-0.9); MONOCYTES % (AUTO) 5.1 % (2-12); NEUTROPHILS # (AUTO) 5.8 X10'3 (1.8-7.7); NEUTROPHILS % (AUTO) 63.9 % (42-75); PLATELET COUNT 259 X10'3 (140-440); RED BLOOD COUNT 4.27 X10'6 (4.20-5.60); RED CELL DISTRIBUTION WIDTH 14.5 % (11.5-14.5)
[2018-08-06 22:29] LABS: PROTHROMBIN TIME 9.9 SECONDS (9.0-12.0)
[2018-08-06] MEDS ORDERED: ondansetron 4mg rapidly disintigrating tab PO ONE (23:55)
[2018-08-07 00:39] LABS: CLARITY,URINE CLEAR (Clear); COLOR,URINE YELLOW (Yellow); GLUCOSE, URINE NEGATIVE (Neg); KETONES,URINE NEGATIVE (Neg); LEUKOCYTE ESTERASE ,URINE NEGATIVE (Neg); NITRITES, URINE NEGATIVE (Neg); OCCULT BLOOD,URINE NEGATIVE (Neg); PH,URINE 8.5 (4.8-8.0); PROTEIN,URINE NEGATIVE (Neg)
[2018-08-07 00:48] LABS: UA COLLECTION TYPE FOLEY CATH
[2018-08-07] MEDS ORDERED: MAGN296S50 PO (01:01)
[2018-08-07 01:03] VITALS: BP 161/92
== END 2018-08-07 01:09 | disposition home or self-care (01) ==
LOC: ER 21:02
DX: K59.00 Constipation, unspecified (principal); R10.84 Generalized abdominal pain; G43.909 Migraine, unspecified, not intractable, without status migrainosus; I48.91 Unspecified atrial fibrillation; I10 Essential (primary) hypertension; G89.29 Other chronic pain; Z90.49 Acquired absence of other specified parts of digestive tract; Z98.890 Other specified postprocedural states; Z90.710 Acquired absence of both cervix and uterus; Z86.73 Personal history of transient ischemic attack (TIA), and cerebral infarction without residual deficits; Z86.711 Personal history of pulmonary embolism; Z56.0 Unemployment, unspecified; Z88.0 Allergy status to penicillin; Z88.6 Allergy status to analgesic agent; Z91.010 Allergy to peanuts; Z79.899 Other long term (current) drug therapy
CPT/HCPCS: 36415; 80053; 81003; 85025; 85610; 99283

== ENCOUNTER 2018-09-24 20:16 | Emergency (ER) | payer MEDICAID ==
[~2018-09-24] VITALS: Ht 142.2 cm; Wt 85.0 kg
[~2018-09-24 20:16] MED LIST changes: +MAGN296S50 PO
[2018-09-24 20:31] VITALS: BP 137/95
== END 2018-09-24 23:35 | disposition home or self-care (01) ==
LOC: ER 20:17
DX: M25.562 Pain in left knee (principal); L90.5 Scar conditions and fibrosis of skin; I50.9 Heart failure, unspecified; I11.0 Hypertensive heart disease with heart failure; I25.10 Atherosclerotic heart disease of native coronary artery without angina pectoris; I48.91 Unspecified atrial fibrillation; G43.909 Migraine, unspecified, not intractable, without status migrainosus; G89.29 Other chronic pain; Z56.0 Unemployment, unspecified; Z86.73 Personal history of transient ischemic attack (TIA), and cerebral infarction without residual deficits; Z98.890 Other specified postprocedural states; Z90.49 Acquired absence of other specified parts of digestive tract; Z90.710 Acquired absence of both cervix and uterus; Z88.0 Allergy status to penicillin; Z88.6 Allergy status to analgesic agent; Z91.010 Allergy to peanuts; Z88.1 Allergy status to other antibiotic agents; Z88.8 Allergy status to other drugs, medicaments and biological substances; Z91.018 Allergy to other foods; Z79.899 Other long term (current) drug therapy; X58.XXXA Exposure to other specified factors, initial encounter; Y93.89 Activity, other specified; Y92.89 Other specified places as the place of occurrence of the external cause; Y99.8 Other external cause status
CPT/HCPCS: 73560; 73590; 99284

== ENCOUNTER 2018-11-06 16:24 | Emergency (ER) | payer MEDICAID ==
[~2018-11-06] VITALS: Ht 142.2 cm; Wt 81.8 kg
[2018-11-06 17:11] LABS: EOSINOPHILS # (AUTO) 0.2 X10'3 (0-0.9)
[2018-11-06 17:13] LABS: BASOPHILS # (AUTO) 0.1 X10'3 (0-0.2); BASOPHILS % (AUTO) 0.9 % (0-1); HEMATOCRIT 44.3 % (35.0-45.0); HEMOGLOBIN 15.4 g/dl (12.0-16.0); LYMPHOCYTES # (AUTO) 4.5 X10'3 (1.1-4.8); LYMPHOCYTES % (AUTO) 29.1 % (21-51); MEAN CORPUSCULAR HEMOGLOBIN 32.8 PG (27.0-31.0); MEAN CORPUSCULAR HGB CONC 34.8 g/dL (33.0-36.5); MEAN CORPUSCULAR VOLUME 94.2 FL (78-98); MEAN PLATELET VOLUME 7.7 FL (7.4-10.4); MONOCYTES # (AUTO) 0.8 X10'3 (0-0.9); MONOCYTES % (AUTO) 5.1 % (2-12); NEUTROPHILS # (AUTO) 9.8 X10'3 (1.8-7.7); NEUTROPHILS % (AUTO) 63.9 % (42-75); PLATELET COUNT 311 X10'3 (140-440); RED CELL DISTRIBUTION WIDTH 14.4 % (11.5-14.5); WHITE BLOOD COUNT 15.3 X10'3 (4.5-11.0)
[2018-11-06 17:23] LABS: PARTIAL THROMBOPLASTIN TIME 29 SECONDS (22-32)
[2018-11-06 17:26] LABS: ALANINE AMINOTRANSFERASE 36 U/L (12-78); ALBUMIN 3.5 G/DL (3.4-5.0); ALBUMIN/GLOBULIN RATIO 0.8 (1.1-1.5); ALKALINE PHOSPHATASE 133 IU/L (46-116); ANION GAP 5 (8-16); ASPARTATE AMINO TRANSFERASE 11 U/L (10-37); BILIRUBIN,TOTAL 0.3 MG/DL (0.1-1.0); BLOOD UREA NITROGEN 14 MG/DL (7-18); BUN/CREATININE RATIO 16.5 (6.6-38.0); CALCIUM 9.3 MG/DL (8.5-10.1); CHLORIDE 106 MMOL/L (99-107); CREATININE 0.85 MG/DL (0.40-0.90); GLUCOSE 82 MG/DL (70-104); SODIUM 137 MMOL/L (135-145); TOTAL CARBON DIOXIDE 26.4 MMOL/L (24-32); TOTAL PROTEIN 7.7 G/DL (6.4-8.2); eGFR 69 ML/MIN
[2018-11-06 22:00] VITALS: BP 147/87
--- NOTE | 2018-11-06 23:15 | NUR ---
PA SINHA IN ROOM DOING ASSESMENT.
== END 2018-11-06 23:45 | disposition left against medical advice (07) ==
LOC: ER 16:25
DX: R07.89 Other chest pain (principal); G43.909 Migraine, unspecified, not intractable, without status migrainosus; I48.91 Unspecified atrial fibrillation; G89.29 Other chronic pain; I10 Essential (primary) hypertension; Z86.718 Personal history of other venous thrombosis and embolism; Z86.14 Personal history of Methicillin resistant Staphylococcus aureus infection; Z86.73 Personal history of transient ischemic attack (TIA), and cerebral infarction without residual deficits; Z90.49 Acquired absence of other specified parts of digestive tract; Z90.710 Acquired absence of both cervix and uterus; Z88.6 Allergy status to analgesic agent; Z88.1 Allergy status to other antibiotic agents; Z91.010 Allergy to peanuts; Z88.0 Allergy status to penicillin; Z88.8 Allergy status to other drugs, medicaments and biological substances; Z91.018 Allergy to other foods; Z79.899 Other long term (current) drug therapy; Z56.0 Unemployment, unspecified
CPT/HCPCS: 36415; 71045; 80053; 84484; 85025; 85610; 85730; 93005; 99284

== ENCOUNTER 2018-12-20 07:21 | Emergency (ER) | payer MEDICAID ==
[~2018-12-20] VITALS: Ht 144.8 cm; Wt 90.0 kg
[2018-12-20] MEDS ORDERED: normal saline 1000ML IV soln IVB ONE (07:50)
[2018-12-20] MEDS ORDERED: ondansetron/PF 4mg/2ml inj IV ONE (07:50)
[2018-12-20 09:15] LABS: CLARITY,URINE CLOUDY (Clear); COLOR,URINE YELLOW (Yellow); GLUCOSE, URINE NEGATIVE (Neg); KETONES,URINE NEGATIVE (Neg); LEUKOCYTE ESTERASE ,URINE TRACE (Neg); NITRITES, URINE NEGATIVE (Neg); OCCULT BLOOD,URINE SMALL (Neg); PH,URINE 5.5 (4.8-8.0); PROTEIN,URINE NEGATIVE (Neg); UA COLLECTION TYPE CLN CATCH MIDSTREAM; UROBILINOGEN,URINE 0.2 E.U/dL (0.2-1.0)
[2018-12-20] MEDS: morphine 4 MG/ML inj SYRINge IV PRN ×2 (09:19→09:22)
[2018-12-20 09:23] LABS: MUCUS STRANDS MODERATE /LPF (Neg); SQUAMOUS EPITHELIAL CELL,UR MANY /LPF (FEW)
[2018-12-20 09:24] LABS: BACTERIA,URINE 2+ /HPF (Neg); RBC,URINE 0-2 /HPF (0-2); WBC,URINE 0-4 /HPF (0-4)
[2018-12-20 09:25] LABS: WBC CLUMPS,URINE FEW /HPF (NEGATIVE)
[2018-12-20 09:26] LABS: TRANSITIONAL EPI CELLS,URINE FEW /HPF
[2018-12-20 10:07] LABS: BASOPHILS # (AUTO) 0.1 X10'3 (0-0.2); BASOPHILS % (AUTO) 0.8 % (0-1); EOSINOPHILS # (AUTO) 0.1 X10'3 (0-0.9); EOSINOPHILS % (AUTO) 0.7 % (0-6); HEMATOCRIT 44.5 % (35.0-45.0); LYMPHOCYTES # (AUTO) 2.3 X10'3 (1.1-4.8); MEAN CORPUSCULAR HEMOGLOBIN 32.6 PG (27.0-31.0); MEAN CORPUSCULAR HGB CONC 33.8 g/dL (33.0-36.5); MEAN CORPUSCULAR VOLUME 96.4 FL (78-98); MEAN PLATELET VOLUME 7.9 FL (7.4-10.4); MONOCYTES # (AUTO) 0.4 X10'3 (0-0.9); MONOCYTES % (AUTO) 3.4 % (2-12); NEUTROPHILS # (AUTO) 8.1 X10'3 (1.8-7.7); NEUTROPHILS % (AUTO) 74.1 % (42-75); PLATELET COUNT 251 X10'3 (140-440); RED BLOOD COUNT 4.61 X10'6 (4.20-5.60); RED CELL DISTRIBUTION WIDTH 14.3 % (11.5-14.5); WHITE BLOOD COUNT 10.9 X10'3 (4.5-11.0)
[2018-12-20] MEDS ORDERED: dicyclomine 10mg/ml 2ml ampule IM ONE (10:20)
[2018-12-20 10:28] LABS: ALANINE AMINOTRANSFERASE 56 U/L (12-78); ALBUMIN 3.4 G/DL (3.4-5.0); ALBUMIN/GLOBULIN RATIO 0.8 (1.1-1.5); ALKALINE PHOSPHATASE 147 IU/L (46-116); ANION GAP 8 (8-16); ASPARTATE AMINO TRANSFERASE 15 U/L (10-37); BILIRUBIN,TOTAL 0.4 MG/DL (0.1-1.0); BLOOD UREA NITROGEN 11 MG/DL (7-18); BUN/CREATININE RATIO 13.4 (6.6-38.0); CALCIUM 9.1 MG/DL (8.5-10.1); CHLORIDE 107 MMOL/L (99-107); CREATININE 0.82 MG/DL (0.40-0.90); GLUCOSE 95 MG/DL (70-104); LIPASE 72 U/L (73-393); SODIUM 138 MMOL/L (135-145); TOTAL PROTEIN 7.6 G/DL (6.4-8.2); eGFR 72 ML/MIN
[2018-12-20] MEDS ORDERED: ONDA4TAB12 PO (10:53)
[2018-12-20 11:16] VITALS: BP 121/77
[2019-01-12] MEDS ORDERED: OXYC5CAP19 PO (14:59)
== END 2018-12-20 11:17 | disposition home or self-care (01) ==
LOC: ER 07:21
DX: R10.13 Epigastric pain (principal); R11.2 Nausea with vomiting, unspecified; G43.909 Migraine, unspecified, not intractable, without status migrainosus; I48.91 Unspecified atrial fibrillation; I10 Essential (primary) hypertension; Z86.718 Personal history of other venous thrombosis and embolism; G89.29 Other chronic pain; Z86.14 Personal history of Methicillin resistant Staphylococcus aureus infection; Z86.73 Personal history of transient ischemic attack (TIA), and cerebral infarction without residual deficits; Z90.49 Acquired absence of other specified parts of digestive tract; Z90.710 Acquired absence of both cervix and uterus; Z88.0 Allergy status to penicillin; Z88.6 Allergy status to analgesic agent; Z91.010 Allergy to peanuts; Z88.1 Allergy status to other antibiotic agents; Z88.5 Allergy status to narcotic agent; Z91.018 Allergy to other foods; Z88.8 Allergy status to other drugs, medicaments and biological substances; Z79.899 Other long term (current) drug therapy; Z56.0 Unemployment, unspecified
CPT/HCPCS: 36415; 80053; 81001; 83690; 85025; 96361; 96372; 96374; 96375; 99283; J0500; J2270; J2405; J7030

== ENCOUNTER 2019-01-17 05:18 | Observation (INO) | payer MEDICAID ==
[2019-01-12 15:16] LABS: EOSINOPHILS # (AUTO) 0.3 X10'3 (0-0.9); LYMPHOCYTES # (AUTO) 4.5 X10'3 (1.1-4.8); MEAN CORPUSCULAR HEMOGLOBIN 32.3 PG (27.0-31.0); MEAN PLATELET VOLUME 7.5 FL (7.4-10.4); MONOCYTES # (AUTO) 0.6 X10'3 (0-0.9)
[2019-01-12 15:18] LABS: BASOPHILS # (AUTO) 0.2 X10'3 (0-0.2); BASOPHILS % (AUTO) 1.9 % (0-1); EOSINOPHILS % (AUTO) 2.3 % (0-6); LYMPHOCYTES % (AUTO) 36.2 % (21-51); MEAN CORPUSCULAR HGB CONC 33.5 g/dL (33.0-36.5); MEAN CORPUSCULAR VOLUME 96.4 FL (78-98); MONOCYTES % (AUTO) 4.7 % (2-12); NEUTROPHILS # (AUTO) 6.8 X10'3 (1.8-7.7); NEUTROPHILS % (AUTO) 54.9 % (42-75); PRE OP HEMATOCRIT 41.2 % (35.0-45.0); PRE OP HEMOGLOBIN 13.8 g/dL (12.0-16.0); PRE OP PLATELET COUNT 283 X10'3 (140-440); RED BLOOD COUNT 4.28 X10'6 (4.20-5.60); RED CELL DISTRIBUTION WIDTH 14.5 % (11.5-14.5)
[2019-01-12 15:27] LABS: ALBUMIN 3.5 G/DL (3.4-5.0); ALBUMIN/GLOBULIN RATIO 0.9 (1.1-1.5); ALKALINE PHOSPHATASE 91 IU/L (46-116); BLOOD UREA NITROGEN 11 MG/DL (7-18); BUN/CREATININE RATIO 11.5 (6.6-38.0); CALCIUM 9.2 MG/DL (8.5-10.1); CHLORIDE 105 MMOL/L (99-107); CREATININE 0.96 MG/DL (0.40-0.90); PRE OP ALT 31 U/L (30-65); PRE OP ANION GAP 6 (8-16); PRE OP AST 21 U/L (10-37); PRE OP BILIRUB, TOTAL 0.3 MG/DL (0.0-1.0); PRE OP GLUCOSE 110 MG/DL (70-104); PRE OP POTASSIUM 4.2 MMOL/L (3.4-5.1); PRE OP SODIUM 139 MMOL/L (135-145); TOTAL CARBON DIOXIDE 27.7 MMOL/L (24-32); TOTAL PROTEIN 7.3 G/DL (6.4-8.2); eGFR 60 ML/MIN
[~2019-01-17] VITALS: Ht 147.3 cm; Wt 87.0 kg
[2019-01-17] VITALS (19 sets, daily range): BP systolic 99–151; BP diastolic 66–103
[~2019-01-17 05:18] MED LIST changes: -BUTA-281 PO; -HYDR-3972 PO; -MAGN296S50 PO; -ONDA4TAB6 PO; +OXYC5CAP19 PO; -TRAM50TA2 PO
[2019-01-17] MEDS ORDERED: albuterol 2.5 MG/3 ML nebule NEB ONE ×2 (05:30→10:35)
[2019-01-17] MEDS ORDERED: scopolamine 1.5mg patch.TD72 TD ONE (05:30)
[2019-01-17] MEDS ORDERED: famotidine 20mg tablet PO ONE (05:30)
[2019-01-17] MEDS ORDERED: LIDOcaine 1% (10mg/ml) 2ml vial ONE (05:51)
[2019-01-17] MEDS: ringers solution, lacted 1,000 ML IV SCH ×2 (06:10→17:04)
[2019-01-17] MEDS ORDERED: BUPIVAcaine/PF 2.5mg/ml (0.25%) 10ml vial ONE (06:58)
[2019-01-17] MEDS ORDERED: clindamycin-Cleocin 900mg/D5W 50 ML IV ONE (07:15)
[2019-01-17] MEDS ORDERED: midazolam 2 mg/2 ml injection ONE (08:14)
[2019-01-17] MEDS ORDERED: fentaNYL/PF 50MCG/1 ML 2ML syringe ONE (08:14)
[2019-01-17] MEDS ORDERED: LIDOcaine 2% (20mg/ml) 5ml vial ONE (08:15)
[2019-01-17] MEDS ORDERED: propofol inj 20 ML IV ONE (08:15)
[2019-01-17] MEDS ORDERED: rocuronium 10mg/ml inj IV ONE (08:15)
[2019-01-17] MEDS ORDERED: ondansetron/PF 4mg/2ml inj ONE (08:15)
[2019-01-17] MEDS ORDERED: midazolam 2 mg/2 ml injection IV PRN (08:20)
[2019-01-17] MEDS ORDERED: hydrALAZINE 20mg/ml inj. IV PRN (08:30)
[2019-01-17] MEDS ORDERED: morphine 4 MG/ML inj SYRINge IV PRN (08:30)
[2019-01-17] MEDS ORDERED: ringers solution, lacted 1,000 ML IV SCH (08:30)
[2019-01-17] MEDS ORDERED: ondansetron/PF 4mg/2ml inj IV PRN ×2 (08:30→22:20)
[2019-01-17] MEDS ORDERED: fentaNYL/PF 50MCG/1 ML 2ML syringe IV PRN ×2 (08:30)
[2019-01-17] MEDS ORDERED: labetalol 20mg/4ml (5mg/ml) syringe IV PRN (08:30)
[2019-01-17] MEDS ORDERED: dexamethasone sod phosphate 10mg/ml inj ONE (08:53)
[2019-01-17] MEDS ORDERED: sevoflurane 250ml liquid IH ONE (08:53)
[2019-01-17] MEDS ORDERED: labetalol 20mg/4ml (5mg/ml) syringe IV ONE (09:37)
[2019-01-17] MEDS ORDERED: glycopyrrolate 0.2mg/ml inj ONE (09:51)
[2019-01-17] MEDS ORDERED: neostigmine methylsulfate 1 MG/ML 10ml vial ONE (09:51)
--- NOTE | 2019-01-17 10:06 | NUR ---
Received from OR via hwit, accompanied by Anesthesiologist Brendan and report given by Anesthesiolgist. Pt VS stable, patel cath in place draining yellow urine, 20G IV to right hand 100cc/hr IVF. Lap sites to abdomen soft CDI, patel cath to be dc'd.
--- NOTE | 2019-01-17 10:36 | NUR ---
Migel chong DC'd per MD orders.
--- NOTE | 2019-01-17 11:10 | NUR ---
Requested breathing treatment from Dr Cardona as patient often sats 89-92% on 10L O2 mask. He states ok to order and administer. RT paged.
--- NOTE | 2019-01-17 11:24 | NUR ---
pt. had to cough at end of treatment. desaturated into high 70's and then placed back on simple mask. sats then climbed back and maintained in low 90's. currently saturating 92% Addendum: 01/17/19 at 1125 by Phillip Miller RT Amended: Links added.
[2019-01-17] MEDS: morphine 4 MG/ML inj SYRINge IV PRN ×3 (11:28→12:24)
--- NOTE | 2019-01-17 12:00 | NUR ---
Pt weaned down to 3L nasal cannula from simple mask with sats at 88-92%. Anesthesiologist made aware. I asked him if patient's sats remain 88-92% on room air whether we should still discharge. He states yes, these sats are probably patient's baseline due to comorbidities. Will continue to monitor patient.
--- NOTE | 2019-01-17 12:36 | NUR ---
Report given to Leslie Rosenthal RN in PASU. Patient transferred to PASU room.
--- NOTE | 2019-01-17 12:45 | NUR ---
Called Dr Blackwell to make him aware that IV pain medicine not relieving pain as expected and requested a one time order of oxycodone per home medication dose. He states ok to give via telephone. Orders place and message re new orders given to receiving nurse Leslie Rosenthal RN.
--- NOTE | 2019-01-17 12:49 | NUR ---
RECEIVED REPORT FROM KANDACE BRADEN IN PACU, PATIENT ARRIVED VIA GURNEY. PATIENT VSS CHARTED. PAIN LEVEL 7/10, ABDOMEN PAIN. ABD SOFT AND TENDER TO TOUCH WITH 3 LAP SITES WITH BANDAGES, CDI. VSS CHARTED, WILL CONTINUE TO MONITOR.
[2019-01-17] MEDS ORDERED: oxyCODONE IR 5mg (immed. release) tablet PO ONE (12:50)
--- NOTE | 2019-01-17 13:30 | NUR ---
Attempted to get patient up to ambulate sats dropped to 77% on RA, Dr. Blackwell made aware, admit orders received.
--- NOTE | 2019-01-17 13:45 | NUR ---
patient 02 sat 88% 2lnc
[2019-01-17] MEDS ORDERED: oxyCODONE IR 5mg (immed. release) tablet PO PRN (13:50)
--- NOTE | 2019-01-17 14:31 | NUR ---
Patient vacillates between snoring and being in pain. Patient states her pain is 10/10, then falls back to sleep. Patient educated on importance of ambulating after surgery and the need to ambulate post-op. patient reports pain is not controlled by oxy given I will start Dilaudid cath as ordered.
[2019-01-17] MEDS: HYDROmorphone/NS 1 mg/ml CADD 50 ML IV SCH ×6 (15:00→23:00)
--- NOTE | 2019-01-17 15:00 | NUR ---
patient report called to sivan rn on surg. all questions and concerns addressed. piv to right wrist lr infusing at 100. Will statrt CONCRETE SPREADER pump as soon as available from pharmacy. Abd soft to touch, 3 lap sites with bandages in place, cdi. SCD'S in place. Patient has yet to void post-op, had fc in OR, floor nurse Sivan to monitor UO when patient gets to the floor.
--- NOTE | 2019-01-17 15:58 | NUR ---
Patient transferred to [facility] via gurney with all personal belongings, patient daughter at bedside and made aware of need to stay.
--- NOTE | 2019-01-17 16:01 | NUR ---
Patient on BSC voiding when I left the room. [facility] RN TO Transfer back to bed.
[2019-01-17] MEDS ORDERED: non-formulary drug (Oxycodone HCl 2 CAP) PO SCH (16:20)
[2019-01-17] MEDS: normal saline 1000ml 1,000 ML IV SCH (17:25)
--- NOTE | 2019-01-17 18:47 | NUR ---
Problems reprioritized. Patient report given, questions answered & plan of care reviewed with REN MCCLURE RN.
[2019-01-17] MEDS ORDERED: mirtazapine 15mg tablet PO SCH (21:00)
[2019-01-17] MEDS ORDERED: QUEtiapine 25mg tablet PO SCH (21:00)
[2019-01-17] MEDS ORDERED: non-formulary drug (Mirtazapine (Remeron) 1 TAB) PO SCH (21:00)
[2019-01-17] MEDS ORDERED: QUETIAPINE FUMARATE 150 MG PO SCH (21:00)
[2019-01-17] MEDS ORDERED: quetiapine 100mg tablet PO SCH (21:00)
[2019-01-18] VITALS: BP 93/52
[2019-01-18] MEDS: HYDROmorphone/NS 1 mg/ml CADD 50 ML IV SCH ×8 (01:00→15:00)
[2019-01-18] MEDS: normal saline 1000ml 1,000 ML IV SCH ×2 (03:24→13:07)
--- NOTE | 2019-01-18 06:30 | NUR ---
Problems reprioritized. Patient report given, questions answered & plan of care reviewed with REED BRADEN.
--- NOTE | 2019-01-18 06:45 | NUR ---
Patient in room INDU 358. I have received report from SAMPSON Cunningham and had the opportunity to ask questions and assume patient care.
[2019-01-18 07:29] VITALS: BP 131/70
[2019-01-18 11:00] VITALS: BP 123/64
[2019-01-18] MEDS ORDERED: CADD PCA waste documentation MC SCH (15:40)
[2019-01-18] MEDS ORDERED: naloxone 0.4 mg/ml inj IV PRN (15:40)
--- NOTE | 2019-01-18 16:15 | NUR ---
Pt discharged to home with all belongings, in private vehicle. Discharge instructions and medications reviewed, new prescription for pain medication called to [facility] on [address] After calling in prescription, [facility] notified us that the pt recently filled a prescription on the 12 of January and will not be able to fill the prescription until the . Pt notified and states she understands. IV DC'd cannula intact. Pt instructed to follow up with Dr Blackwell in 1 weeks time and to return to ED if any signs of infection occur. Pt escorted to [facility] via wheelchair by PCT.
[2019-01-19] MEDS ORDERED: ONDA8TAB6 PO (22:36)
[2019-01-19] MEDS ORDERED: HYDR-3965 PO (22:36)
== END 2019-01-18 16:17 | disposition home or self-care (01) ==
LOC: PAS 05:18 → SUR 3N 16:09
PROVIDERS: ADMIT Surgery; ATTEND Surgery
DX: K43.9 Ventral hernia without obstruction or gangrene (principal); E11.9 Type 2 diabetes mellitus without complications; F17.210 Nicotine dependence, cigarettes, uncomplicated; Z87.442 Personal history of urinary calculi; Z87.01 Personal history of pneumonia (recurrent); Z79.899 Other long term (current) drug therapy
CPT/HCPCS: 36415; 49652; 80053; 82948; 85025; 87081; 93005; 94640; 94760; 96374; 96375; 96376; C1758; G0378; J1100; J1170; J2001; J2250; J2270; J2405; J2704; J2710; J3010; J3490; J7030; J7120; A4215; A4618; A7000

== ENCOUNTER 2019-01-19 18:33 | Emergency (ER) | payer MEDICAID ==
[~2019-01-19] VITALS: Ht 147.3 cm; Wt 85.5 kg
[2019-01-19 19:07] VITALS: BP 147/111
[2019-01-19 19:47] LABS: BASOPHILS % (AUTO) 0.2 % (0-1); EOSINOPHILS # (AUTO) 0.3 X10'3 (0-0.9); EOSINOPHILS % (AUTO) 1.9 % (0-6); HEMATOCRIT 41.8 % (35.0-45.0); HEMOGLOBIN 14.4 g/dl (12.0-16.0); LYMPHOCYTES # (AUTO) 3.1 X10'3 (1.1-4.8); LYMPHOCYTES % (AUTO) 22.5 % (21-51); MEAN CORPUSCULAR HEMOGLOBIN 33.1 PG (27.0-31.0); MEAN CORPUSCULAR HGB CONC 34.4 g/dL (33.0-36.5); MEAN CORPUSCULAR VOLUME 96.2 FL (78-98); MEAN PLATELET VOLUME 7.9 FL (7.4-10.4); MONOCYTES # (AUTO) 0.8 X10'3 (0-0.9); MONOCYTES % (AUTO) 5.9 % (2-12); NEUTROPHILS # (AUTO) 9.5 X10'3 (1.8-7.7); NEUTROPHILS % (AUTO) 69.5 % (42-75); PLATELET COUNT 273 X10'3 (140-440); RED BLOOD COUNT 4.35 X10'6 (4.20-5.60); RED CELL DISTRIBUTION WIDTH 14.4 % (11.5-14.5); WHITE BLOOD COUNT 13.7 X10'3 (4.5-11.0)
[2019-01-19 20:00] LABS: PARTIAL THROMBOPLASTIN TIME 28 SECONDS (22-32)
[2019-01-19] MEDS ORDERED: morphine 4 MG/ML inj SYRINge IV ONE (20:10)
[2019-01-19] MEDS ORDERED: fentaNYL/PF 50MCG/1 ML 2ML syringe IV ONE (20:10)
[2019-01-19] MEDS ORDERED: normal saline 1000ml 1,000 ML IV ONE ×2 (20:10→20:45)
[2019-01-19 20:13] LABS: ALANINE AMINOTRANSFERASE 60 U/L (12-78); ALBUMIN 3.5 G/DL (3.4-5.0); ALBUMIN/GLOBULIN RATIO 0.9 (1.1-1.5); ALKALINE PHOSPHATASE 123 IU/L (46-116); ANION GAP 8 (8-16); ASPARTATE AMINO TRANSFERASE 19 U/L (10-37); BILIRUBIN,TOTAL 0.5 MG/DL (0.1-1.0); BLOOD UREA NITROGEN 16 MG/DL (7-18); BUN/CREATININE RATIO 11.3 (6.6-38.0); CALCIUM 9.4 MG/DL (8.5-10.1); CHLORIDE 108 MMOL/L (99-107); CREATININE 1.42 MG/DL (0.40-0.90); GLUCOSE 109 MG/DL (70-104); POTASSIUM 3.7 MMOL/L (3.5-5.1); SODIUM 142 MMOL/L (135-145); TOTAL PROTEIN 7.6 G/DL (6.4-8.2); eGFR 38 ML/MIN
--- NOTE | 2019-01-19 20:50 | NUR ---
PT TO RESTROOM WITH WHEELCHAIR, URINE COLLECTED AT SAME TIME.
[2019-01-19 21:09] LABS: CLARITY,URINE CLEAR (Clear); COLOR,URINE YELLOW (Yellow); GLUCOSE, URINE NEGATIVE (Neg); KETONES,URINE NEGATIVE (Neg); LEUKOCYTE ESTERASE ,URINE NEGATIVE (Neg); NITRITES, URINE NEGATIVE (Neg); OCCULT BLOOD,URINE TRACE-LYSED (Neg); PH,URINE 8.5 (4.8-8.0); PROTEIN,URINE NEGATIVE (Neg); UROBILINOGEN,URINE 0.2 E.U/dL (0.2-1.0)
[2019-01-19 21:10] LABS: UA COLLECTION TYPE CLN CATCH MIDSTREAM
[2019-01-19 21:17] LABS: BACTERIA,URINE NONE SEEN /HPF (Neg); MUCUS STRANDS NONE SEEN /LPF (Neg); RBC,URINE 0-2 /HPF (0-2); SQUAMOUS EPITHELIAL CELL,UR FEW /LPF (FEW); WBC,URINE 0-4 /HPF (0-4)
--- NOTE | 2019-01-19 22:13 | NUR ---
[address] PIV W/US UNSUCCESSFUL. ANOTHER ATTEMPT IN PROGRESS NOW.
[2019-01-19] MEDS ORDERED: ondansetron 4mg rapidly disintigrating tab PO ONE (22:35)
[2019-01-19] MEDS ORDERED: HYDR-3965 PO (22:36)
[2019-01-19] MEDS ORDERED: ONDA8TAB6 PO (22:36)
== END 2019-01-19 23:12 | disposition home or self-care (01) ==
LOC: ER 18:33
DX: G89.18 Other acute postprocedural pain (principal); R10.30 Lower abdominal pain, unspecified; G43.909 Migraine, unspecified, not intractable, without status migrainosus; I48.91 Unspecified atrial fibrillation; I10 Essential (primary) hypertension; G89.29 Other chronic pain; Z86.711 Personal history of pulmonary embolism; Z86.14 Personal history of Methicillin resistant Staphylococcus aureus infection; Z86.73 Personal history of transient ischemic attack (TIA), and cerebral infarction without residual deficits; Z90.49 Acquired absence of other specified parts of digestive tract; Z90.710 Acquired absence of both cervix and uterus; Z98.890 Other specified postprocedural states; Z56.0 Unemployment, unspecified; Z88.0 Allergy status to penicillin; Z88.6 Allergy status to analgesic agent; Z91.018 Allergy to other foods; Z88.1 Allergy status to other antibiotic agents; Z79.899 Other long term (current) drug therapy
CPT/HCPCS: 36415; 71045; 74176; 80053; 81001; 83605; 84145; 85025; 85610; 85730; 87040; 96374; 96375; 99284; J2270; J2405; J3010

== ENCOUNTER 2019-01-31 19:35 | Emergency (ER) | payer MEDICAID ==
[~2019-01-31] VITALS: Ht 144.8 cm; Wt 84.9 kg
[~2019-01-31 19:35] MED LIST changes: +HYDR-3965 PO; +ONDA8TAB6 PO
[2019-01-31 20:27] LABS: CLARITY,URINE CLOUDY (Clear); COLOR,URINE YELLOW (Yellow); GLUCOSE, URINE NEGATIVE (Neg); KETONES,URINE NEGATIVE (Neg); LEUKOCYTE ESTERASE ,URINE NEGATIVE (Neg); NITRITES, URINE NEGATIVE (Neg); OCCULT BLOOD,URINE SMALL (Neg); PH,URINE 5.5 (4.8-8.0); PROTEIN,URINE TRACE mg/dl (Neg); UROBILINOGEN,URINE 0.2 E.U/dL (0.2-1.0)
[2019-01-31 20:28] LABS: URINE HCG NEGATIVE (NEG)
[2019-01-31 20:29] LABS: UA COLLECTION TYPE CLN CATCH MIDSTREAM
[2019-01-31 20:33] LABS: BACTERIA,URINE 1+ /HPF (Neg); MUCUS STRANDS NONE SEEN /LPF (Neg); RBC,URINE 0-2 /HPF (0-2); SQUAMOUS EPITHELIAL CELL,UR MANY /LPF (FEW); WBC,URINE 0-4 /HPF (0-4)
[2019-01-31 20:34] LABS: CAL OXALATE CRYSTALS 2+ /HPF (NEGATIVE)
[2019-01-31 20:41] LABS: EOSINOPHILS # (AUTO) 0.3 X10'3 (0-0.9); EOSINOPHILS % (AUTO) 2.6 % (0-6); HEMATOCRIT 44.4 % (35.0-45.0); LYMPHOCYTES # (AUTO) 5.4 X10'3 (1.1-4.8); MEAN CORPUSCULAR HGB CONC 33.8 g/dL (33.0-36.5); MONOCYTES # (AUTO) 0.6 X10'3 (0-0.9); NEUTROPHILS # (AUTO) 6.3 X10'3 (1.8-7.7)
[2019-01-31 20:43] LABS: ALANINE AMINOTRANSFERASE 24 U/L (12-78); ALBUMIN 3.6 G/DL (3.4-5.0); ALBUMIN/GLOBULIN RATIO 0.9 (1.1-1.5); ALKALINE PHOSPHATASE 109 IU/L (46-116); ANION GAP 8 (8-16); ASPARTATE AMINO TRANSFERASE 16 U/L (10-37); BASOPHILS % (AUTO) 0.4 % (0-1); BILIRUBIN,TOTAL 0.2 MG/DL (0.1-1.0); BLOOD UREA NITROGEN 12 MG/DL (7-18); BUN/CREATININE RATIO 12.6 (6.6-38.0); CHLORIDE 105 MMOL/L (99-107); CREATININE 0.95 MG/DL (0.40-0.90); GLUCOSE 103 MG/DL (70-104); LIPASE 66 U/L (73-393); LYMPHOCYTES % (AUTO) 42.5 % (21-51); MEAN CORPUSCULAR HEMOGLOBIN 32.6 PG (27.0-31.0); MEAN CORPUSCULAR VOLUME 96.5 FL (78-98); MEAN PLATELET VOLUME 7.5 FL (7.4-10.4); MONOCYTES % (AUTO) 4.9 % (2-12); NEUTROPHILS % (AUTO) 49.6 % (42-75); PLATELET COUNT 369 X10'3 (140-440); POTASSIUM 3.6 MMOL/L (3.5-5.1); RED CELL DISTRIBUTION WIDTH 14.5 % (11.5-14.5); SODIUM 141 MMOL/L (135-145); TOTAL PROTEIN 7.8 G/DL (6.4-8.2); WHITE BLOOD COUNT 12.7 X10'3 (4.5-11.0); eGFR 61 ML/MIN
[2019-01-31] MEDS ORDERED: acetaminophen 325mg tablet PO ONE (21:00)
[2019-01-31] MEDS ORDERED: ondansetron 4mg rapidly disintigrating tab PO ONE (21:00)
[2019-01-31] MEDS ORDERED: iohexol 300mg/ml 100ml inj. ONE (21:17)
--- NOTE | 2019-01-31 22:12 | NUR ---
back from ct
[2019-01-31 22:13] VITALS: BP 138/107
== END 2019-01-31 23:00 | disposition home or self-care (01) ==
LOC: ER 19:35
DX: R10.84 Generalized abdominal pain (principal); G43.909 Migraine, unspecified, not intractable, without status migrainosus; I48.91 Unspecified atrial fibrillation; I10 Essential (primary) hypertension; G89.29 Other chronic pain; Z86.73 Personal history of transient ischemic attack (TIA), and cerebral infarction without residual deficits; Z90.49 Acquired absence of other specified parts of digestive tract; Z98.890 Other specified postprocedural states; Z90.710 Acquired absence of both cervix and uterus; Z56.0 Unemployment, unspecified; Z86.711 Personal history of pulmonary embolism; Z88.0 Allergy status to penicillin; Z88.6 Allergy status to analgesic agent; Z91.010 Allergy to peanuts; Z88.8 Allergy status to other drugs, medicaments and biological substances; Z79.899 Other long term (current) drug therapy
CPT/HCPCS: 36415; 74176; 80053; 81001; 81025; 83690; 85025; 85610; 99284; Q9967

== ENCOUNTER 2019-02-07 11:19 | Day surgery (SDC) | payer MEDICAID ==
[2019-02-07] VITALS (9 sets, daily range): BP systolic 94–181; BP diastolic 47–101
[~2019-02-07] VITALS: Ht 147.3 cm; Wt 84.7 kg
[~2019-02-07 11:19] MED LIST changes: +clindamycin-Cleocin 900mg/D5W 50 ML IV ONE; +famotidine 20mg tablet PO ONE; +ringers solution, lacted 1,000 ML IV SCH
[2019-02-07] MEDS ORDERED: BUPIVAcaine/PF 2.5mg/ml (0.25%) 10ml vial ONE (11:39)
[2019-02-07] MEDS ORDERED: scopolamine 1.5mg patch.TD72 TD ONE ×2 (11:40)
[2019-02-07] MEDS ORDERED: ringers solution, lacted 1,000 ML IV SCH ×2 (11:41→11:42)
[2019-02-07] MEDS ORDERED: meperidine/PF 25mg/ml syringe IV PRN ×6 (11:45)
[2019-02-07] MEDS ORDERED: ondansetron/PF 4mg/2ml inj IV PRN ×2 (11:45)
[2019-02-07] MEDS ORDERED: morphine 4 MG/ML inj SYRINge IV PRN ×4 (11:45)
[2019-02-07] MEDS ORDERED: LIDOcaine 1%/PF 5ML 10 MG/ML VIAL ONE (11:57)
[2019-02-07] MEDS ORDERED: ondansetron/PF 4mg/2ml inj ONE (11:57)
[2019-02-07] MEDS ORDERED: sevoflurane 250ml liquid IH ONE (11:57)
[2019-02-07] MEDS ORDERED: fentaNYL/PF 50MCG/1 ML 2ML syringe ONE (12:05)
[2019-02-07] MEDS ORDERED: MIDAZolam 5mg/5ml vial ONE (12:05)
[2019-02-07] MEDS ORDERED: propofol inj 20 ML IV ONE (12:19)
[2019-02-07] MEDS ORDERED: dexamethasone sod phosphate 4mg/ml inj. ONE (12:48)
--- NOTE | 2019-02-07 13:10 | NUR ---
Received from OR via BED , accompanied by Anesthesiologist DR GOODMAN and report given by Anesthesiolgist. PATIENT WAKING UP, DENIES PAIN, V/S WNL, CSM INTACT, 20G PIV TO UE, SCD ON, BANDAIDS TO ABDOMEN CDI.R
--- NOTE | 2019-02-07 14:20 | NUR ---
PATIENT A&OX4, DENIES PAIN, V/S WNL, NEUROVASCULAR CHECKLS INTACT, 20G PIV TO LUE D/C, SCD OFF, DRESSING CDI TO ABDOMEN, I HAVE REVIEWED D/C INSTRUCTIONS WITH PATIENT AND FAMILY AND THEY HAVE VERBALIZED UNDERSTANDING. PATIENT D/C HOME WITH ALL BELONGINGS AND FAMILY GAVE TRANSPORT HOME.
== END 2019-02-07 14:20 | disposition home or self-care (01) ==
LOC: PAS 11:19
PROVIDERS: ATTEND Surgery
DX: L76.32 Postprocedural hematoma of skin and subcutaneous tissue following other procedure (principal); I11.0 Hypertensive heart disease with heart failure; I50.9 Heart failure, unspecified; I48.91 Unspecified atrial fibrillation; E66.01 Morbid (severe) obesity due to excess calories; Z68.39 Body mass index [BMI] 39.0-39.9, adult; Z88.8 Allergy status to other drugs, medicaments and biological substances; Z88.0 Allergy status to penicillin; Z91.010 Allergy to peanuts; Z91.018 Allergy to other foods; Z98.890 Other specified postprocedural states; Z90.49 Acquired absence of other specified parts of digestive tract; Z90.710 Acquired absence of both cervix and uterus; Z87.442 Personal history of urinary calculi; F17.210 Nicotine dependence, cigarettes, uncomplicated; Z79.899 Other long term (current) drug therapy; Y83.8 Other surgical procedures as the cause of abnormal reaction of the patient, or of later complication, without mention of misadventure at the time of the procedure; Y92.238 Other place in hospital as the place of occurrence of the external cause
CPT/HCPCS: 10140; J1100; J2175; J2250; J2405; J2704; J3010; J3490; J7120; A4618; A7000

== ENCOUNTER 2019-02-17 19:04 | Emergency (ER) | payer MEDICAID ==
[~2019-02-17] VITALS: Ht 144.8 cm; Wt 86.4 kg
[~2019-02-17 19:04] MED LIST changes: -HYDR-3965 PO; -clindamycin-Cleocin 900mg/D5W 50 ML IV ONE; -famotidine 20mg tablet PO ONE; -ringers solution, lacted 1,000 ML IV SCH
[2019-02-17] MEDS ORDERED: normal saline 1000ML IV soln IVB ONE (21:00)
[2019-02-17] MEDS ORDERED: ondansetron/PF 4mg/2ml inj IV ONE (21:00)
[2019-02-17] MEDS ORDERED: diatr meglu/diatrizoate 30ml oral sol.-(3 dose) bottle PO ONE (21:05)
[2019-02-17] MEDS ORDERED: diatrozoate meglu/diatrozoate sod (37% iodine) 120ML oral solution PO ONE (21:05)
[2019-02-17] MEDS: morphine 2 MG/ML inj. syringe IV PRN ×2 (21:29→23:08)
[2019-02-17 21:34] LABS: BASOPHILS # (AUTO) 0.2 X10'3 (0-0.2); EOSINOPHILS # (AUTO) 0.2 X10'3 (0-0.9); EOSINOPHILS % (AUTO) 1.6 % (0-6); HEMOGLOBIN 15.2 g/dl (12.0-16.0); MEAN PLATELET VOLUME 7.8 FL (7.4-10.4); MONOCYTES # (AUTO) 0.7 X10'3 (0-0.9); NEUTROPHILS % (AUTO) 63.3 % (42-75)
[2019-02-17 21:35] LABS: BASOPHILS % (AUTO) 1.1 % (0-1); HEMATOCRIT 44.3 % (35.0-45.0); MEAN CORPUSCULAR HEMOGLOBIN 32.7 PG (27.0-31.0); MEAN CORPUSCULAR HGB CONC 34.2 g/dL (33.0-36.5); MEAN CORPUSCULAR VOLUME 95.5 FL (78-98); NEUTROPHILS # (AUTO) 8.6 X10'3 (1.8-7.7); PLATELET COUNT 268 X10'3 (140-440); RED BLOOD COUNT 4.64 X10'6 (4.20-5.60); RED CELL DISTRIBUTION WIDTH 14.4 % (11.5-14.5); WHITE BLOOD COUNT 13.6 X10'3 (4.5-11.0)
[2019-02-17 21:38] LABS: PARTIAL THROMBOPLASTIN TIME 28 SECONDS (22-32)
[2019-02-17 21:41] LABS: ALANINE AMINOTRANSFERASE 56 U/L (12-78); ALBUMIN 3.6 G/DL (3.4-5.0); ALBUMIN/GLOBULIN RATIO 0.9 (1.1-1.5); ALKALINE PHOSPHATASE 142 IU/L (46-116); ANION GAP 8 (8-16); ASPARTATE AMINO TRANSFERASE 15 U/L (10-37); BILIRUBIN,TOTAL 0.4 MG/DL (0.1-1.0); BLOOD UREA NITROGEN 11 MG/DL (7-18); BUN/CREATININE RATIO 11.8 (6.6-38.0); CALCIUM 8.9 MG/DL (8.5-10.1); CHLORIDE 108 MMOL/L (99-107); CREATININE 0.93 MG/DL (0.40-0.90); GLUCOSE 101 MG/DL (70-104); LIPASE 81 U/L (73-393); MAGNESIUM 2.2 MG/DL (1.5-2.4); POTASSIUM 3.7 MMOL/L (3.5-5.1); SODIUM 143 MMOL/L (135-145); TOTAL CARBON DIOXIDE 27.1 MMOL/L (24-32); TOTAL PROTEIN 7.5 G/DL (6.4-8.2); eGFR 62 ML/MIN
[2019-02-17] MEDS ORDERED: iohexol 300mg/ml 100ml inj. ONE (22:20)
[2019-02-17 23:12] VITALS: BP 124/76
[2019-02-18] MEDS ORDERED: clindamycin 300mg/D5W 50mL 50 ML IV STA
[2019-02-18] MEDS ORDERED: ONDA4TAB6 PO (01:09)
[2019-02-18] MEDS: morphine 2 MG/ML inj. syringe IV PRN (01:10)
== END 2019-02-18 01:52 | disposition home or self-care (01) ==
LOC: ER 19:05
DX: L76.34 Postprocedural seroma of skin and subcutaneous tissue following other procedure (principal); G89.18 Other acute postprocedural pain; R11.2 Nausea with vomiting, unspecified; R42 Dizziness and giddiness; G43.909 Migraine, unspecified, not intractable, without status migrainosus; I48.91 Unspecified atrial fibrillation; I10 Essential (primary) hypertension; G89.29 Other chronic pain; F17.210 Nicotine dependence, cigarettes, uncomplicated; Z86.73 Personal history of transient ischemic attack (TIA), and cerebral infarction without residual deficits; Z86.711 Personal history of pulmonary embolism; Z86.14 Personal history of Methicillin resistant Staphylococcus aureus infection; Z90.49 Acquired absence of other specified parts of digestive tract; Z90.710 Acquired absence of both cervix and uterus; Z98.890 Other specified postprocedural states; Z56.0 Unemployment, unspecified; Z88.0 Allergy status to penicillin; Z88.6 Allergy status to analgesic agent; Z91.010 Allergy to peanuts; Z88.1 Allergy status to other antibiotic agents; Z91.018 Allergy to other foods; Z88.8 Allergy status to other drugs, medicaments and biological substances; Z79.899 Other long term (current) drug therapy; Y83.8 Other surgical procedures as the cause of abnormal reaction of the patient, or of later complication, without mention of misadventure at the time of the procedure; Y92.89 Other specified places as the place of occurrence of the external cause
CPT/HCPCS: 36415; 74177; 80053; 83690; 83735; 85025; 85610; 85730; 96361; 96365; 96375; 96376; 99284; J2270; J2405; J7030; Q9963; Q9967; J3490

== ENCOUNTER 2019-10-18 11:58 | Emergency (ER) | payer MEDICAID ==
[~2019-10-18] VITALS: Ht 144.8 cm; Wt 81.8 kg
[~2019-10-18 11:58] MED LIST changes: +ONDA4TAB6 PO
[2019-10-18 12:09] VITALS: BP 148/83
[2019-10-18] MEDS ORDERED: HYDROcodone/acetaminophen 5mg/325mg tablet PO ONE (13:40)
[2019-10-18] MEDS ORDERED: ONDA8TAB13 PO (13:44)
[2019-10-18] MEDS ORDERED: ondansetron 4mg rapidly disintigrating tab PO ONE (13:45)
== END 2019-10-18 14:02 | disposition home or self-care (01) ==
LOC: ER 11:59
DX: M25.512 Pain in left shoulder (principal); R06.7 Sneezing; R11.2 Nausea with vomiting, unspecified; G43.909 Migraine, unspecified, not intractable, without status migrainosus; I48.91 Unspecified atrial fibrillation; I10 Essential (primary) hypertension; G89.29 Other chronic pain; Z86.73 Personal history of transient ischemic attack (TIA), and cerebral infarction without residual deficits; Z86.14 Personal history of Methicillin resistant Staphylococcus aureus infection; Z90.710 Acquired absence of both cervix and uterus; Z90.49 Acquired absence of other specified parts of digestive tract; Z98.890 Other specified postprocedural states; Z56.0 Unemployment, unspecified; Z88.0 Allergy status to penicillin; Z88.6 Allergy status to analgesic agent; Z91.010 Allergy to peanuts; Z79.899 Other long term (current) drug therapy
CPT/HCPCS: 73030; 99284

== ENCOUNTER 2020-01-18 17:38 | Emergency (ER) | payer MEDICAID ==
[~2020-01-18] VITALS: Ht 144.8 cm; Wt 81.8 kg
[~2020-01-18 17:38] MED LIST changes: +ONDA8TAB13 PO
[2020-01-18] MEDS ORDERED: morphine 4 MG/ML inj SYRINge IM ONE (19:20)
[2020-01-18] MEDS ORDERED: ondansetron 4mg rapidly disintigrating tab PO ONE (19:20)
[2020-01-18 20:24] VITALS: BP 130/78
== END 2020-01-18 21:19 | disposition home or self-care (01) ==
LOC: ER 17:39
DX: M25.562 Pain in left knee (principal); G43.909 Migraine, unspecified, not intractable, without status migrainosus; I48.91 Unspecified atrial fibrillation; I10 Essential (primary) hypertension; G89.29 Other chronic pain; Z86.73 Personal history of transient ischemic attack (TIA), and cerebral infarction without residual deficits; Z86.711 Personal history of pulmonary embolism; Z86.14 Personal history of Methicillin resistant Staphylococcus aureus infection; Z90.89 Acquired absence of other organs; Z90.49 Acquired absence of other specified parts of digestive tract; Z90.710 Acquired absence of both cervix and uterus; Z98.890 Other specified postprocedural states; Z56.0 Unemployment, unspecified; Z88.0 Allergy status to penicillin; Z88.6 Allergy status to analgesic agent; Z88.8 Allergy status to other drugs, medicaments and biological substances; Z91.010 Allergy to peanuts; Z88.1 Allergy status to other antibiotic agents; Z91.018 Allergy to other foods; Z79.899 Other long term (current) drug therapy
CPT/HCPCS: 29505; 73560; 96372; 99284; J2270; 29515

== ENCOUNTER 2021-07-14 15:14 | Emergency (ER) | payer MEDICAID ==
[~2021-07-14] VITALS: Ht 147.3 cm; Wt 75.0 kg
[2021-07-14] MEDS ORDERED: HYDROcodone/acetaminophen 10/325mg tab PO ONE (18:20)
[2021-07-14] MEDS ORDERED: morphine 5 MG/ML injection IM ONE (18:20)
[2021-07-14] MEDS ORDERED: morphine 4 MG/ML inj SYRINge IM ONE (18:30)
[2021-07-14 19:03] VITALS: BP 125/90
== END 2021-07-14 19:08 | disposition home or self-care (01) ==
LOC: ER 15:15
DX: M25.562 Pain in left knee (principal); G43.909 Migraine, unspecified, not intractable, without status migrainosus; I48.91 Unspecified atrial fibrillation; I10 Essential (primary) hypertension; G89.29 Other chronic pain; Z86.73 Personal history of transient ischemic attack (TIA), and cerebral infarction without residual deficits; Z86.711 Personal history of pulmonary embolism; Z86.14 Personal history of Methicillin resistant Staphylococcus aureus infection; Z90.89 Acquired absence of other organs; Z90.49 Acquired absence of other specified parts of digestive tract; Z90.710 Acquired absence of both cervix and uterus; Z98.890 Other specified postprocedural states; Z56.0 Unemployment, unspecified; Z88.0 Allergy status to penicillin; Z88.8 Allergy status to other drugs, medicaments and biological substances; Z88.1 Allergy status to other antibiotic agents; Z91.010 Allergy to peanuts; Z79.899 Other long term (current) drug therapy
CPT/HCPCS: 29505; 73564; 96372; 99284; J2270

== ENCOUNTER 2021-09-22 08:25 | Emergency (ER) | payer MEDICAID ==
[~2021-09-22] VITALS: Ht 149.9 cm; Wt 77.7 kg
[2021-09-22] MEDS ORDERED: morphine 4 MG/ML inj SYRINge IM ONE (09:25)
--- NOTE | 2021-09-22 09:34 | NUR ---
ice pack given to pt
[2021-09-22 10:08] VITALS: BP 118/78
== END 2021-09-22 10:09 | disposition home or self-care (01) ==
LOC: ER 08:26
DX: K43.9 Ventral hernia without obstruction or gangrene (principal); G43.909 Migraine, unspecified, not intractable, without status migrainosus; I48.91 Unspecified atrial fibrillation; I10 Essential (primary) hypertension; G89.29 Other chronic pain; F17.200 Nicotine dependence, unspecified, uncomplicated; Z86.73 Personal history of transient ischemic attack (TIA), and cerebral infarction without residual deficits; Z87.01 Personal history of pneumonia (recurrent); Z87.81 Personal history of (healed) traumatic fracture; Z86.14 Personal history of Methicillin resistant Staphylococcus aureus infection; Z90.49 Acquired absence of other specified parts of digestive tract; Z98.891 History of uterine scar from previous surgery; Z90.710 Acquired absence of both cervix and uterus; Z56.0 Unemployment, unspecified; Z88.0 Allergy status to penicillin; Z88.6 Allergy status to analgesic agent; Z88.8 Allergy status to other drugs, medicaments and biological substances; Z91.010 Allergy to peanuts; Z91.018 Allergy to other foods; Z88.2 Allergy status to sulfonamides; Z79.899 Other long term (current) drug therapy
CPT/HCPCS: 96372; 99283; J2270

== ENCOUNTER 2021-09-23 15:56 | Emergency (ER) | payer MEDICAID ==
[~2021-09-23] VITALS: Ht 149.9 cm; Wt 79.5 kg
[2021-09-23 17:10] LABS: BASOPHILS # (AUTO) 0.1 X10'3 (0-0.2); BASOPHILS % (AUTO) 0.9 % (0-1); EOSINOPHILS # (AUTO) 0.1 X10'3 (0-0.9); EOSINOPHILS % (AUTO) 1.1 % (0-6); HEMATOCRIT 46.6 % (35.0-45.0); HEMOGLOBIN 16.2 g/dl (12.0-16.0); LYMPHOCYTES # (AUTO) 3.9 X10'3 (1.1-4.8); LYMPHOCYTES % (AUTO) 31.2 % (21-51); MEAN CORPUSCULAR HEMOGLOBIN 32.2 PG (27.0-31.0); MEAN CORPUSCULAR HGB CONC 34.7 g/dL (33.0-36.5); MEAN CORPUSCULAR VOLUME 92.6 FL (78-98); MEAN PLATELET VOLUME 7.9 FL (7.4-10.4); MONOCYTES # (AUTO) 0.5 X10'3 (0-0.9); MONOCYTES % (AUTO) 4.4 % (2-12); NEUTROPHILS # (AUTO) 7.8 X10'3 (1.8-7.7); NEUTROPHILS % (AUTO) 62.4 % (42-75); PLATELET COUNT 307 X10'3 (140-440); RED BLOOD COUNT 5.03 X10'6 (4.20-5.60); WHITE BLOOD COUNT 12.5 X10'3 (4.5-11.0)
[2021-09-23 17:10] LABS: CLARITY,URINE CLOUDY (Clear); COLOR,URINE YELLOW (Yellow); GLUCOSE, URINE NEGATIVE (Neg); KETONES,URINE NEGATIVE (Neg); LEUKOCYTE ESTERASE ,URINE NEGATIVE (Neg); NITRITES, URINE NEGATIVE (Neg); OCCULT BLOOD,URINE SMALL (Neg); PROTEIN,URINE TRACE mg/dl (Neg); UROBILINOGEN,URINE 0.2 E.U/dL (0.2-1.0)
[2021-09-23 17:13] LABS: URINE HCG NEGATIVE (NEG)
[2021-09-23 17:18] LABS: MUCUS STRANDS MODERATE /LPF (Neg); SQUAMOUS EPITHELIAL CELL,UR MODERATE /LPF (FEW); UA COLLECTION TYPE CLN CATCH MIDSTREAM
[2021-09-23 17:19] LABS: BACTERIA,URINE 1+ /HPF (Neg)
[2021-09-23 17:20] LABS: WBC,URINE 0-4 /HPF (0-4)
[2021-09-23 17:24] LABS: ALANINE AMINOTRANSFERASE 26 U/L (12-78); ALBUMIN 3.6 G/DL (3.4-5.0); ALBUMIN/GLOBULIN RATIO 0.9 (1.1-1.5); ALKALINE PHOSPHATASE 140 IU/L (46-116); ANION GAP 7 (8-16); ASPARTATE AMINO TRANSFERASE 13 U/L (10-37); BILIRUBIN,TOTAL 0.2 MG/DL (0.1-1.0); BLOOD UREA NITROGEN 11 MG/DL (7-18); BUN/CREATININE RATIO 12.4 (6.6-38.0); CALCIUM 9.3 MG/DL (8.5-10.1); CHLORIDE 105 MMOL/L (99-107); CREATININE 0.89 MG/DL (0.40-0.90); GLUCOSE 101 MG/DL (70-104); LIPASE < 50 U/L (73-393); POTASSIUM 3.8 MMOL/L (3.5-5.1); SODIUM 138 MMOL/L (135-145); TOTAL CARBON DIOXIDE 26.2 MMOL/L (24-32); TOTAL PROTEIN 7.7 G/DL (6.4-8.2); eGFR 65 ML/MIN
[2021-09-23] MEDS ORDERED: normal saline 1000ml 1,000 ML IV ONE (22:10)
[2021-09-23] MEDS ORDERED: morphine 4 MG/ML inj SYRINge IV ONE (22:10)
[2021-09-23] MEDS ORDERED: ondansetron/PF 4mg/2ml inj IV ONE (22:10)
[2021-09-23] MEDS ORDERED: iohexol 300mg/ml 100ml inj. ONE (22:13)
--- NOTE | 2021-09-24 00:03 | NUR ---
PT BACK FROM CT
[2021-09-24] MEDS ORDERED: morphine 4 MG/ML inj SYRINge IV ONE ×3 (00:15→04:50)
[2021-09-24] MEDS ORDERED: HYDR-3965 PO (04:48)
[2021-09-24 05:10] VITALS: BP 139/98
== END 2021-09-24 05:13 | disposition home or self-care (01) ==
LOC: ER 15:56
DX: K43.9 Ventral hernia without obstruction or gangrene (principal); R11.0 Nausea; R10.84 Generalized abdominal pain; G43.909 Migraine, unspecified, not intractable, without status migrainosus; I48.91 Unspecified atrial fibrillation; I10 Essential (primary) hypertension; G89.29 Other chronic pain; Z86.73 Personal history of transient ischemic attack (TIA), and cerebral infarction without residual deficits; Z86.711 Personal history of pulmonary embolism; Z86.14 Personal history of Methicillin resistant Staphylococcus aureus infection; Z90.89 Acquired absence of other organs; Z90.49 Acquired absence of other specified parts of digestive tract; Z90.710 Acquired absence of both cervix and uterus; Z98.890 Other specified postprocedural states; Z56.0 Unemployment, unspecified; Z88.0 Allergy status to penicillin; Z88.6 Allergy status to analgesic agent; Z91.010 Allergy to peanuts; Z88.8 Allergy status to other drugs, medicaments and biological substances; Z79.899 Other long term (current) drug therapy
CPT/HCPCS: 36415; 74177; 80053; 81001; 81025; 83690; 85025; 96361; 96374; 96375; 96376; 99285; J2270; J2405; J7030; Q9967

== ENCOUNTER 2021-10-09 10:06 | Emergency (ER) | payer MEDICAID ==
[~2021-10-09] VITALS: Ht 149.9 cm; Wt 79.5 kg
[~2021-10-09 10:06] MED LIST changes: -ONDA4TAB6 PO; -ONDA8TAB6 PO
[2021-10-09] MEDS ORDERED: diphenhydrAMINE 50 mg/ml inj IV ONE (11:00)
[2021-10-09] MEDS ORDERED: morphine 4 MG/ML inj SYRINge IV ONE (11:00)
[2021-10-09] MEDS ORDERED: metoclopramide 5 mg/ml inj IV ONE (11:00)
[2021-10-09 11:09] LABS: BASOPHILS # (AUTO) 0.1 X10'3 (0-0.2); EOSINOPHILS # (AUTO) 0.1 X10'3 (0-0.9); EOSINOPHILS % (AUTO) 1.3 % (0-6); HEMATOCRIT 45.3 % (35.0-45.0); HEMOGLOBIN 15.4 g/dl (12.0-16.0); LYMPHOCYTES # (AUTO) 2.7 X10'3 (1.1-4.8); LYMPHOCYTES % (AUTO) 26.3 % (21-51); MEAN CORPUSCULAR HEMOGLOBIN 31.8 PG (27.0-31.0); MEAN CORPUSCULAR VOLUME 93.3 FL (78-98); MEAN PLATELET VOLUME 7.5 FL (7.4-10.4); MONOCYTES # (AUTO) 0.5 X10'3 (0-0.9); MONOCYTES % (AUTO) 5.1 % (2-12); NEUTROPHILS # (AUTO) 6.7 X10'3 (1.8-7.7); NEUTROPHILS % (AUTO) 66.3 % (42-75); PLATELET COUNT 273 X10'3 (140-440); RED BLOOD COUNT 4.85 X10'6 (4.20-5.60); RED CELL DISTRIBUTION WIDTH 14.4 % (11.5-14.5); WHITE BLOOD COUNT 10.1 X10'3 (4.5-11.0)
[2021-10-09 11:16] LABS: ALANINE AMINOTRANSFERASE 37 U/L (12-78); ALBUMIN 3.3 G/DL (3.4-5.0); ALBUMIN/GLOBULIN RATIO 0.8 (1.1-1.5); ALKALINE PHOSPHATASE 168 IU/L (46-116); ANION GAP 8 (8-16); ASPARTATE AMINO TRANSFERASE 12 U/L (10-37); BILIRUBIN,TOTAL 0.2 MG/DL (0.1-1.0); BLOOD UREA NITROGEN 11 MG/DL (7-18); BUN/CREATININE RATIO 12.4 (6.6-38.0); CALCIUM 9.2 MG/DL (8.5-10.1); CHLORIDE 105 MMOL/L (99-107); CREATININE 0.89 MG/DL (0.40-0.90); GLUCOSE 96 MG/DL (70-104); LIPASE < 50 U/L (73-393); POTASSIUM 3.9 MMOL/L (3.5-5.1); SODIUM 139 MMOL/L (135-145); TOTAL CARBON DIOXIDE 26.1 MMOL/L (24-32); TOTAL PROTEIN 7.3 G/DL (6.4-8.2); eGFR 65 ML/MIN
[2021-10-09] MEDS ORDERED: normal saline 1000ML IV soln IVB ONE (11:20)
--- NOTE | 2021-10-09 11:50 | NUR ---
Patient unable to give urine specimen at this time.
--- NOTE | 2021-10-09 12:01 | NUR ---
Patient's ultrasound-placed IV extravasated morphine and reglan into soft tissues; pharmacy called. Warm compress placed on site.
[2021-10-09] MEDS ORDERED: morphine 4 MG/ML inj SYRINge IM ONE (12:35)
[2021-10-09 13:22] VITALS: BP 122/87
== END 2021-10-09 13:25 | disposition home or self-care (01) ==
LOC: ER 10:06
DX: K43.9 Ventral hernia without obstruction or gangrene (principal); G43.909 Migraine, unspecified, not intractable, without status migrainosus; I11.9 Hypertensive heart disease without heart failure; G89.29 Other chronic pain; Z86.14 Personal history of Methicillin resistant Staphylococcus aureus infection; Z88.0 Allergy status to penicillin; Z88.6 Allergy status to analgesic agent; Z91.010 Allergy to peanuts; Z88.1 Allergy status to other antibiotic agents; Z88.8 Allergy status to other drugs, medicaments and biological substances; Z91.018 Allergy to other foods
CPT/HCPCS: 36415; 80053; 83690; 85025; 96372; 96374; 96375; 99284; J1200; J2270; J2765; J7030; 96376

== ENCOUNTER 2021-10-14 05:51 | Day surgery (SDC) | payer MEDICAID ==
[2021-10-08 10:09] LABS: CLARITY,URINE SLIGHTLY CLOUDY (Clear); COLOR,URINE YELLOW (Yellow); GLUCOSE, URINE NEGATIVE (Neg); KETONES,URINE NEGATIVE (Neg); LEUKOCYTE ESTERASE ,URINE NEGATIVE (Neg); NITRITES, URINE NEGATIVE (Neg); OCCULT BLOOD,URINE SMALL (Neg); PH,URINE 5.5 (4.8-8.0); PROTEIN,URINE TRACE mg/dl (Neg); UROBILINOGEN,URINE 0.2 E.U/dL (0.2-1.0)
[2021-10-08 10:12] LABS: UA COLLECTION TYPE CLN CATCH MIDSTREAM
[2021-10-08 10:15] LABS: BASOPHILS # (AUTO) 0.1 X10'3 (0-0.2); EOSINOPHILS # (AUTO) 0.1 X10'3 (0-0.9); LYMPHOCYTES # (AUTO) 2.6 X10'3 (1.1-4.8); MEAN CORPUSCULAR VOLUME 93.4 FL (78-98); NEUTROPHILS # (AUTO) 7.6 X10'3 (1.8-7.7)
[2021-10-08 10:17] LABS: BASOPHILS % (AUTO) 0.9 % (0-1); EOSINOPHILS % (AUTO) 0.7 % (0-6); LYMPHOCYTES % (AUTO) 23.8 % (21-51); MEAN CORPUSCULAR HEMOGLOBIN 31.6 PG (27.0-31.0); MEAN CORPUSCULAR HGB CONC 33.8 g/dL (33.0-36.5); MEAN PLATELET VOLUME 7.9 FL (7.4-10.4); MONOCYTES # (AUTO) 0.4 X10'3 (0-0.9); MONOCYTES % (AUTO) 3.9 % (2-12); NEUTROPHILS % (AUTO) 70.7 % (42-75); PRE OP HEMATOCRIT 48.6 % (35.0-45.0); PRE OP HEMOGLOBIN 16.4 g/dL (12.0-16.0); PRE OP PLATELET COUNT 297 X10'3 (140-440); RED CELL DISTRIBUTION WIDTH 14.2 % (11.5-14.5)
[2021-10-08 10:23] LABS: BACTERIA,URINE 2+ /HPF (Neg); MUCUS STRANDS MANY /LPF (Neg); RBC,URINE 0-2 /HPF (0-2); SQUAMOUS EPITHELIAL CELL,UR MANY /LPF (FEW); WBC,URINE 20-30 /HPF (0-4)
[2021-10-08 10:27] LABS: ALBUMIN 3.5 G/DL (3.4-5.0); ALBUMIN/GLOBULIN RATIO 0.8 (1.1-1.5); ALKALINE PHOSPHATASE 199 IU/L (46-116); BLOOD UREA NITROGEN 12 MG/DL (7-18); BUN/CREATININE RATIO 12.6 (6.6-38.0); CALCIUM 9.3 MG/DL (8.5-10.1); CHLORIDE 108 MMOL/L (99-107); CREATININE 0.95 MG/DL (0.40-0.90); PRE OP ALT 53 U/L (30-65); PRE OP ANION GAP 9 (8-16); PRE OP AST 15 U/L (10-37); PRE OP BILIRUB, TOTAL 0.2 MG/DL (0.0-1.0); PRE OP GLUCOSE 102 MG/DL (70-104); PRE OP POTASSIUM 4.1 MMOL/L (3.4-5.1); PRE OP SODIUM 140 MMOL/L (135-145); TOTAL CARBON DIOXIDE 22.8 MMOL/L (24-32); TOTAL PROTEIN 7.9 G/DL (6.4-8.2); eGFR 60 ML/MIN
[2021-10-14] VITALS (20 sets, daily range): BP systolic 114–156; BP diastolic 78–123
[~2021-10-14] VITALS: Ht 149.9 cm; Wt 84.0 kg
[~2021-10-14 05:51] MED LIST changes: +clindamycin-Cleocin 900mg/D5W 50 ML IV ONE; +famotidine 20mg tablet PO ONE; +ringers solution, lacted 1,000 ML IV SCH; +scopolamine 1mg/72 hr patch TD SCH
[2021-10-14] MEDS ORDERED: ringers solution, lacted 1,000 ML IV SCH (07:15)
[2021-10-14] MEDS ORDERED: morphine 2 MG/ML inj. syringe IV PRN (07:15)
[2021-10-14] MEDS ORDERED: hydrALAZINE 20mg/ml inj. IV PRN (07:15)
[2021-10-14] MEDS ORDERED: ondansetron/PF 4mg/2ml inj IV PRN (07:15)
[2021-10-14] MEDS ORDERED: fentaNYL/PF 50MCG/1 ML 2ML syringe IV PRN ×2 (07:15)
[2021-10-14] MEDS ORDERED: labetalol 20mg/4ml (5mg/ml) syringe IV PRN (07:15)
[2021-10-14] MEDS ORDERED: BUPIVAcaine/PF 7.5mg/ml (0.75%) 10ml vial ONE (08:58)
[2021-10-14] MEDS ORDERED: neostigmine methylsulfate 1 MG/ML 10ml vial ONE (09:05)
[2021-10-14] MEDS ORDERED: sevoflurane 250ml liquid IH ONE (09:05)
[2021-10-14] MEDS ORDERED: MIDAZolam 5mg/ml 2ml vial IV ONE (09:05)
[2021-10-14] MEDS ORDERED: dexamethasone sod phosphate 10mg/ml inj ONE (09:05)
[2021-10-14] MEDS ORDERED: midazolam 1 mg/ML 2ml injection ONE ×3 (09:09→09:14)
[2021-10-14] MEDS ORDERED: fentaNYL/PF 50MCG/1 ML 2ML syringe ONE (09:14)
[2021-10-14] MEDS ORDERED: propofol inj 20 ML IV ONE (09:29)
[2021-10-14] MEDS ORDERED: LIDOcaine 2% (20mg/ml) 5ml vial ONE (09:29)
[2021-10-14] MEDS ORDERED: rocuronium 10mg/ml inj IV ONE (09:29)
[2021-10-14] MEDS ORDERED: ondansetron/PF 4mg/2ml inj ONE (09:34)
[2021-10-14] MEDS ORDERED: glycopyrrolate 0.2mg/ml inj ONE (10:17)
[2021-10-14] MEDS ORDERED: labetalol 20mg/4ml (5mg/ml) syringe IV ONE (10:26)
--- NOTE | 2021-10-14 10:30 | NUR ---
Received from OR via [facility], accompanied by Anesthesiologist DR BRYSON and report given by Anesthesiolgist. PT PRESNTS WITH 20G LEFT FOREARM, ABD JENISE TODD, PT HAS ORAL AIRWAY WITH DR BRYSON AT BEDSIDE. Addendum: 10/14/21 at 1100 by Barbara Doty RN, RN Amended: Links added.
[2021-10-14] MEDS ORDERED: sugammadex 200mg/2ml injection IV ONE (10:35)
[2021-10-14] MEDS ORDERED: acetaminophen 1,000mg/100ml IV 100 ML IV ONE (10:50)
--- NOTE | 2021-10-14 11:02 | NUR ---
PT REFUSING IV TYLENOL, PT REPORTS "IT MAKES ME SICK". Addendum: 10/14/21 at 1104 by Barbara Doty RN, RN Amended: Links added.
[2021-10-14] MEDS: morphine 4 MG/ML inj SYRINge IV PRN ×5 (11:05→15:42)
[2021-10-14] MEDS ORDERED: oxyCODONE/APAP 10/325mg tablet PO ONE (11:25)
--- NOTE | 2021-10-14 11:37 | NUR ---
PT CO DRY MOUTH, I GAVE PT 1 ICE CHIP, PT SPIT IT OUT. Addendum: 10/14/21 at 1137 by Barbara Doty RN, RN Amended: Links added.
--- NOTE | 2021-10-14 11:45 | NUR ---
PT IS REPORTS "HOW CAN I GO HOME LIKE THIS" I EXPLAINED SHE WOULD NOT BE GOING HOME RIGHT THIS MINUTE AND SHE SHOULD EXPECT TO HAVE SOME DISCOMFORT AFTER SURGERY. Addendum: 10/14/21 at 1146 by Barbara Doty RN, RN Amended: Links added.
[2021-10-14] MEDS ORDERED: oxyCODONE IR 5mg (immed. release) tablet PO ONE (12:05)
--- NOTE | 2021-10-14 13:10 | NUR ---
PT TAKEN TO [facility] ROOM 247, CIELO BRADEN TO TAKE OVER PT CARE. Addendum: 10/14/21 at 1728 by Barbara Doty RN, RN Amended: Links added.
--- NOTE | 2021-10-14 13:15 | NUR ---
RECEIVED BACK TO PAS AFTER SX- PT PAINFUL AND ANXIOUS, VSS, JUST GIVEN 20MG OXY IR BEFORE ARRIVAL-WILL ALLOW TIME FOR IT TO WORK, PT TOLERATING WATER/SODA, ABD SITES-CDI, BELONGINGS WITH PT.
--- NOTE | 2021-10-14 15:00 | NUR ---
PT UP AND DRESSED, WALKING TO BR, ENCOURAGING USE OF IS, AND SITTING IN W/C. VSS NO CHANGES IN ABD SITES
--- NOTE | 2021-10-14 16:30 | NUR ---
GIVEN 4MG MORPHINE 1600, PT WALKING IN THE HAMLIN, SPASMS AT TIMES, BUT TOLERABLE, O2 93-95% ON ROOM AIR, PT FEELING READY TO GO HOME. D/C INSTRUCTIONS GIVEN -ALL QUESTIONS ANSWERED, PIV D/CD-CANULA INTACT, NO CHANGES IN ABD SITES. PT TAKEN VIA W/C TO VEHICLE WITH ALL BELONGINGS AND WAS TAKEN BY FRIEND TO HOME
== END 2021-10-14 16:30 | disposition home or self-care (01) ==
LOC: PAS 05:51
PROVIDERS: ATTEND Surgery
DX: K43.9 Ventral hernia without obstruction or gangrene (principal); I25.10 Atherosclerotic heart disease of native coronary artery without angina pectoris; I11.0 Hypertensive heart disease with heart failure; I50.9 Heart failure, unspecified; F17.210 Nicotine dependence, cigarettes, uncomplicated; G43.909 Migraine, unspecified, not intractable, without status migrainosus; I48.91 Unspecified atrial fibrillation; G89.29 Other chronic pain; Z86.14 Personal history of Methicillin resistant Staphylococcus aureus infection; Z86.711 Personal history of pulmonary embolism; Z79.899 Other long term (current) drug therapy; Z88.0 Allergy status to penicillin; Z88.8 Allergy status to other drugs, medicaments and biological substances; Z88.5 Allergy status to narcotic agent; Z91.018 Allergy to other foods; Z91.010 Allergy to peanuts; Z90.49 Acquired absence of other specified parts of digestive tract; Z90.710 Acquired absence of both cervix and uterus; Z98.890 Other specified postprocedural states; Z20.822 Contact with and (suspected) exposure to COVID-19; Z83.3 Family history of diabetes mellitus
CPT/HCPCS: 36415; 49652; 71046; 80053; 81001; 82948; 84075; 85025; 93005; C1781; J1100; J2250; J2270; J2405; J2704; J2710; J3010; J3490; J7030; J7120; U0003; U0005; Z7506; Z7508; Z7512; A4618; A7000

== ENCOUNTER 2021-10-20 17:19 | Emergency (ER) | payer MEDICAID ==
[~2021-10-20] VITALS: Ht 149.9 cm; Wt 79.5 kg
[~2021-10-20 17:19] MED LIST changes: -clindamycin-Cleocin 900mg/D5W 50 ML IV ONE; -famotidine 20mg tablet PO ONE; -ringers solution, lacted 1,000 ML IV SCH; -scopolamine 1mg/72 hr patch TD SCH
--- NOTE | 2021-10-20 17:50 | NUR ---
UPDATED DR. ROTHMAN OF PT STATUS AND RECENT PROCEDURE, RECEIVED VO FOR SEPSIS WORK-UP.
[2021-10-20 18:23] LABS: EOSINOPHILS # (AUTO) 0.2 X10'3 (0-0.9); HEMOGLOBIN 13.9 g/dl (12.0-16.0); LYMPHOCYTES # (AUTO) 3.1 X10'3 (1.1-4.8); MONOCYTES # (AUTO) 0.5 X10'3 (0-0.9)
[2021-10-20 18:24] LABS: BASOPHILS % (AUTO) 0.3 % (0-1); HEMATOCRIT 40.8 % (35.0-45.0); LYMPHOCYTES % (AUTO) 28.5 % (21-51); MEAN CORPUSCULAR HEMOGLOBIN 31.8 PG (27.0-31.0); MEAN CORPUSCULAR HGB CONC 34.2 g/dL (33.0-36.5); MEAN CORPUSCULAR VOLUME 92.9 FL (78-98); MONOCYTES % (AUTO) 4.9 % (2-12); NEUTROPHILS # (AUTO) 7.1 X10'3 (1.8-7.7); NEUTROPHILS % (AUTO) 64.3 % (42-75); PLATELET COUNT 355 X10'3 (140-440); RED BLOOD COUNT 4.39 X10'6 (4.20-5.60); RED CELL DISTRIBUTION WIDTH 13.8 % (11.5-14.5)
[2021-10-20 18:34] LABS: ALANINE AMINOTRANSFERASE 40 U/L (12-78); ALBUMIN 2.9 G/DL (3.4-5.0); ALBUMIN/GLOBULIN RATIO 0.7 (1.1-1.5); ALKALINE PHOSPHATASE 192 IU/L (46-116); ANION GAP 7 (8-16); ASPARTATE AMINO TRANSFERASE 20 U/L (10-37); BILIRUBIN,TOTAL 0.4 MG/DL (0.1-1.0); BLOOD UREA NITROGEN 7 MG/DL (7-18); BUN/CREATININE RATIO 7.7 (6.6-38.0); CALCIUM 8.8 MG/DL (8.5-10.1); CHLORIDE 102 MMOL/L (99-107); CREATININE 0.91 MG/DL (0.40-0.90); GLUCOSE 100 MG/DL (70-104); POTASSIUM 3.3 MMOL/L (3.5-5.1); SODIUM 137 MMOL/L (135-145); TOTAL CARBON DIOXIDE 28.5 MMOL/L (24-32); TOTAL PROTEIN 7.1 G/DL (6.4-8.2); eGFR 63 ML/MIN
[2021-10-20] MEDS ORDERED: ondansetron/PF 4mg/2ml inj IV ONE (20:45)
[2021-10-20] MEDS: morphine 4 MG/ML inj SYRINge IV PRN ×2 (21:04→21:57)
[2021-10-20] MEDS ORDERED: DOXYCYCLINE 100MG CAPSULE PO STA (21:51)
[2021-10-20] MEDS ORDERED: normal saline 1000ML IV soln IVB ONE (21:55)
[2021-10-20] MEDS ORDERED: ONDA-103 PO (22:04)
[2021-10-20] MEDS ORDERED: DOXY100C77 PO (22:04)
[2021-10-20 22:14] VITALS: BP 144/90
== END 2021-10-20 22:44 | disposition home or self-care (01) ==
LOC: ER 17:20
DX: G89.18 Other acute postprocedural pain (principal); R10.9 Unspecified abdominal pain; R50.9 Fever, unspecified; R11.2 Nausea with vomiting, unspecified; G43.909 Migraine, unspecified, not intractable, without status migrainosus; I48.91 Unspecified atrial fibrillation; I10 Essential (primary) hypertension; G89.29 Other chronic pain; Z86.73 Personal history of transient ischemic attack (TIA), and cerebral infarction without residual deficits; Z86.711 Personal history of pulmonary embolism; Z86.14 Personal history of Methicillin resistant Staphylococcus aureus infection; Z90.89 Acquired absence of other organs; Z90.49 Acquired absence of other specified parts of digestive tract; Z90.710 Acquired absence of both cervix and uterus; Z98.890 Other specified postprocedural states; Z56.0 Unemployment, unspecified; Z88.1 Allergy status to other antibiotic agents; Z88.0 Allergy status to penicillin; Z88.6 Allergy status to analgesic agent; Z91.010 Allergy to peanuts; Z79.2 Long term (current) use of antibiotics; Z79.899 Other long term (current) drug therapy
CPT/HCPCS: 36415; 71045; 74176; 80053; 83605; 84145; 85025; 87040; 96374; 96375; 96376; 99285; J2270; J2405; J7030

== ENCOUNTER 2021-10-24 11:29 | Emergency (ER) | payer MEDICAID ==
[~2021-10-24] VITALS: Ht 149.9 cm; Wt 75.0 kg
[~2021-10-24 11:29] MED LIST changes: +DOXY100C77 PO; +ONDA-103 PO
== END 2021-10-24 12:15 | disposition left against medical advice (07) ==
LOC: ER 11:30
DX: R10.13 Epigastric pain (principal); Z53.21 Procedure and treatment not carried out due to patient leaving prior to being seen by health care provider

== ENCOUNTER 2021-11-09 08:03 | Emergency (ER) | payer MEDICAID ==
[~2021-11-09] VITALS: Ht 149.9 cm; Wt 75.9 kg
[~2021-11-09 08:03] MED LIST changes: -DOXY100C77 PO
[2021-11-09] MEDS ORDERED: ondansetron/PF 4mg/2ml inj IV ONE (08:25)
[2021-11-09] MEDS ORDERED: normal saline 1000ML IV soln IVB ONE (08:25)
[2021-11-09] MEDS: morphine 4 MG/ML inj SYRINge IV PRN ×2 (09:01→09:54)
[2021-11-09 09:19] LABS: BASOPHILS # (AUTO) 0.1 X10'3 (0-0.2); BASOPHILS % (AUTO) 1.1 % (0-1); EOSINOPHILS # (AUTO) 0.3 X10'3 (0-0.9); EOSINOPHILS % (AUTO) 3.8 % (0-6); HEMATOCRIT 43.9 % (35.0-45.0); HEMOGLOBIN 14.6 g/dl (12.0-16.0); LYMPHOCYTES # (AUTO) 2.6 X10'3 (1.1-4.8); LYMPHOCYTES % (AUTO) 29.6 % (21-51); MEAN CORPUSCULAR HEMOGLOBIN 30.8 PG (27.0-31.0); MEAN CORPUSCULAR HGB CONC 33.3 g/dL (33.0-36.5); MEAN CORPUSCULAR VOLUME 92.5 FL (78-98); MEAN PLATELET VOLUME 7.5 FL (7.4-10.4); MONOCYTES # (AUTO) 0.4 X10'3 (0-0.9); MONOCYTES % (AUTO) 4.6 % (2-12); NEUTROPHILS # (AUTO) 5.4 X10'3 (1.8-7.7); NEUTROPHILS % (AUTO) 60.9 % (42-75); PLATELET COUNT 255 X10'3 (140-440); RED BLOOD COUNT 4.74 X10'6 (4.20-5.60); RED CELL DISTRIBUTION WIDTH 14.8 % (11.5-14.5); WHITE BLOOD COUNT 8.8 X10'3 (4.5-11.0)
[2021-11-09 09:32] LABS: ALANINE AMINOTRANSFERASE 32 U/L (12-78); ALBUMIN 3.2 G/DL (3.4-5.0); ALBUMIN/GLOBULIN RATIO 0.8 (1.1-1.5); ALKALINE PHOSPHATASE 195 IU/L (46-116); ANION GAP 7 (8-16); ASPARTATE AMINO TRANSFERASE 13 U/L (10-37); BILIRUBIN,TOTAL 0.3 MG/DL (0.1-1.0); BLOOD UREA NITROGEN 9 MG/DL (7-18); BUN/CREATININE RATIO 11.5 (6.6-38.0); CHLORIDE 103 MMOL/L (99-107); CREATININE 0.78 MG/DL (0.40-0.90); GLUCOSE 98 MG/DL (70-104); LIPASE < 50 U/L (73-393); POTASSIUM 4.2 MMOL/L (3.5-5.1); SODIUM 136 MMOL/L (135-145); TOTAL PROTEIN 7.2 G/DL (6.4-8.2); eGFR 76 ML/MIN
[2021-11-09 11:03] LABS: CLARITY,URINE CLEAR (Clear); COLOR,URINE YELLOW (Yellow); GLUCOSE, URINE NEGATIVE (Neg); KETONES,URINE NEGATIVE (Neg); LEUKOCYTE ESTERASE ,URINE NEGATIVE (Neg); NITRITES, URINE NEGATIVE (Neg); OCCULT BLOOD,URINE SMALL (Neg); PROTEIN,URINE NEGATIVE (Neg); UROBILINOGEN,URINE 0.2 E.U/dL (0.2-1.0)
[2021-11-09 11:04] LABS: UA COLLECTION TYPE CLN CATCH MIDSTREAM
[2021-11-09 11:09] LABS: BACTERIA,URINE 2+ /HPF (Neg); MUCUS STRANDS MODERATE /LPF (Neg); SQUAMOUS EPITHELIAL CELL,UR MODERATE /LPF (FEW)
--- NOTE | 2021-11-09 11:23 | NUR ---
notified dr bynum that pt is requesting for more pain meds for abd pain ,verbal orders to give morphine 4mg iv once for pain.
[2021-11-09] MEDS ORDERED: morphine 4 MG/ML inj SYRINge IV ONE (11:25)
[2021-11-09 12:16] VITALS: BP 115/80
== END 2021-11-09 12:35 | disposition home or self-care (01) ==
LOC: ER 08:03
DX: R10.32 Left lower quadrant pain (principal); G43.909 Migraine, unspecified, not intractable, without status migrainosus; G89.29 Other chronic pain; M54.9 Dorsalgia, unspecified; I11.9 Hypertensive heart disease without heart failure; Z88.0 Allergy status to penicillin; Z88.6 Allergy status to analgesic agent
CPT/HCPCS: 36415; 74176; 80053; 81001; 83690; 85025; 87088; 96361; 96374; 96375; 96376; 99285; J2270; J2405; J7030

== ENCOUNTER 2021-11-29 07:31 | Emergency (ER) | payer MEDICAID ==
[~2021-11-29] VITALS: Ht 144.8 cm; Wt 77.3 kg
[2021-11-29 07:39] VITALS: BP 154/93
[2021-11-29] MEDS ORDERED: HYDROcodone/acetaminophen 5mg/325mg tablet PO ONE (08:00)
[2021-11-29] MEDS ORDERED: ondansetron 4mg rapidly disintigrating tab PO ONE (08:00)
[2021-11-29 08:45] LABS: BASOPHILS # (AUTO) 0.1 X10'3 (0-0.2); BASOPHILS % (AUTO) 0.5 % (0-1); EOSINOPHILS # (AUTO) 0.2 X10'3 (0-0.9); EOSINOPHILS % (AUTO) 1.9 % (0-6); HEMATOCRIT 42.2 % (35.0-45.0); HEMOGLOBIN 14.5 g/dl (12.0-16.0); LYMPHOCYTES # (AUTO) 2.1 X10'3 (1.1-4.8); LYMPHOCYTES % (AUTO) 21.5 % (21-51); MEAN CORPUSCULAR HEMOGLOBIN 31.3 PG (27.0-31.0); MEAN CORPUSCULAR HGB CONC 34.3 g/dL (33.0-36.5); MEAN CORPUSCULAR VOLUME 91.3 FL (78-98); MEAN PLATELET VOLUME 7.7 FL (7.4-10.4); MONOCYTES # (AUTO) 0.5 X10'3 (0-0.9); MONOCYTES % (AUTO) 5.6 % (2-12); NEUTROPHILS # (AUTO) 6.8 X10'3 (1.8-7.7); NEUTROPHILS % (AUTO) 70.5 % (42-75); PLATELET COUNT 270 X10'3 (140-440); RED BLOOD COUNT 4.62 X10'6 (4.20-5.60); RED CELL DISTRIBUTION WIDTH 15.1 % (11.5-14.5); WHITE BLOOD COUNT 9.6 X10'3 (4.5-11.0)
[2021-11-29 08:52] LABS: ALANINE AMINOTRANSFERASE 36 U/L (12-78); ALBUMIN/GLOBULIN RATIO 0.8 (1.1-1.5); ALKALINE PHOSPHATASE 200 IU/L (46-116); ANION GAP 7 (8-16); ASPARTATE AMINO TRANSFERASE 15 U/L (10-37); BILIRUBIN,TOTAL 0.2 MG/DL (0.1-1.0); BLOOD UREA NITROGEN 11 MG/DL (7-18); BUN/CREATININE RATIO 13.9 (6.6-38.0); CALCIUM 8.8 MG/DL (8.5-10.1); CHLORIDE 108 MMOL/L (99-107); CREATININE 0.79 MG/DL (0.40-0.90); GLUCOSE 104 MG/DL (70-104); LIPASE < 50 U/L (73-393); POTASSIUM 3.6 MMOL/L (3.5-5.1); SODIUM 141 MMOL/L (135-145); TOTAL CARBON DIOXIDE 26.5 MMOL/L (24-32); TOTAL PROTEIN 6.7 G/DL (6.4-8.2); eGFR 74 ML/MIN
[2021-11-29 08:57] LABS: CLARITY,URINE SLIGHTLY CLOUDY (Clear); COLOR,URINE YELLOW (Yellow); GLUCOSE, URINE NEGATIVE (Neg); KETONES,URINE NEGATIVE (Neg); LEUKOCYTE ESTERASE ,URINE TRACE (Neg); NITRITES, URINE NEGATIVE (Neg); OCCULT BLOOD,URINE SMALL (Neg); PH,URINE 5.5 (4.8-8.0); PROTEIN,URINE NEGATIVE (Neg); UROBILINOGEN,URINE 0.2 E.U/dL (0.2-1.0)
[2021-11-29 09:00] LABS: UA COLLECTION TYPE CLN CATCH MIDSTREAM
[2021-11-29 09:04] LABS: MUCUS STRANDS MANY /LPF (Neg); SQUAMOUS EPITHELIAL CELL,UR MANY /LPF (FEW)
[2021-11-29 09:05] LABS: CAL OXALATE CRYSTALS 1+ /HPF (NEGATIVE)
[2021-11-29 09:07] LABS: BACTERIA,URINE 1+ /HPF (Neg)
== END 2021-11-29 09:51 | disposition home or self-care (01) ==
LOC: ER 07:31
DX: R10.32 Left lower quadrant pain (principal); R11.2 Nausea with vomiting, unspecified; I11.9 Hypertensive heart disease without heart failure; G43.909 Migraine, unspecified, not intractable, without status migrainosus; G89.29 Other chronic pain; M54.9 Dorsalgia, unspecified; I10 Essential (primary) hypertension; Z87.81 Personal history of (healed) traumatic fracture; Z88.1 Allergy status to other antibiotic agents; Z88.6 Allergy status to analgesic agent; Z88.0 Allergy status to penicillin; Z91.010 Allergy to peanuts; Z91.018 Allergy to other foods; Z79.899 Other long term (current) drug therapy
CPT/HCPCS: 36415; 74176; 80053; 81001; 83605; 83690; 84145; 85025; 99284

== ENCOUNTER 2021-12-10 06:57 | Emergency (ER) | payer MEDICAID ==
[~2021-12-10] VITALS: Ht 144.8 cm; Wt 75.9 kg
[2021-12-10 07:03] VITALS: BP 158/86
== END 2021-12-10 10:29 | disposition left against medical advice (07) ==
LOC: ER 06:57
DX: H92.01 Otalgia, right ear (principal); Z53.21 Procedure and treatment not carried out due to patient leaving prior to being seen by health care provider

== ENCOUNTER 2022-01-04 08:55 | Outpatient (CLI) | payer MEDICAID | END 2022-01-04 23:59 | disposition home or self-care (01) | LOC: RAD 08:55 | PROVIDERS: ATTEND Surgery | DX: R10.9 Unspecified abdominal pain (principal); Z87.19 Personal history of other diseases of the digestive system | CPT/HCPCS: 76705 ==

== ENCOUNTER 2022-07-19 11:14 | Emergency (ER) | payer MEDICAID ==
[~2022-07-19] VITALS: Ht 147.3 cm; Wt 77.3 kg
[2022-07-19 11:53] VITALS: BP 173/99
== END 2022-07-19 18:53 | disposition left against medical advice (07) ==
LOC: ER 11:15
DX: M25.552 Pain in left hip (principal); Z53.21 Procedure and treatment not carried out due to patient leaving prior to being seen by health care provider

== ENCOUNTER 2022-12-05 08:17 | Emergency (ER) | payer MEDICAID ==
[~2022-12-05] VITALS: Ht 148 cm; Wt 77.3 kg
[2022-12-05] MEDS ORDERED: ondansetron/PF 4mg/2ml inj IV ONE (09:40)
[2022-12-05] MEDS ORDERED: morphine 4 MG/ML inj SYRINge IV ONE (09:40)
--- NOTE | 2022-12-05 10:33 | NUR ---
PT REPORTS WEAKNESS AND NUMBNESS TO HER LEFT SIDE ALSO LEFT FACIAL DROOP THAT HAS HAPPENED BEFORE D/T HER IIH. AWARE.
--- NOTE | 2022-12-05 11:01 | NUR ---
decrease in pain, pt feeling better, made aware.
[2022-12-05] MEDS ORDERED: ACET125T3 PO (11:06)
[2022-12-05 11:13] VITALS: BP 129/90
== END 2022-12-05 11:15 | disposition home or self-care (01) ==
LOC: ER 08:17
DX: G93.2 Benign intracranial hypertension (principal); G43.909 Migraine, unspecified, not intractable, without status migrainosus; I11.0 Hypertensive heart disease with heart failure; Z87.81 Personal history of (healed) traumatic fracture; Z88.1 Allergy status to other antibiotic agents; Z88.6 Allergy status to analgesic agent; Z88.0 Allergy status to penicillin; Z79.899 Other long term (current) drug therapy; Z91.010 Allergy to peanuts
CPT/HCPCS: 70450; 96374; 96375; 99285; J2270; J2405

== ENCOUNTER 2023-01-08 11:45 | Emergency (ER) | payer MEDICAID ==
[~2023-01-08] VITALS: Ht 149.9 cm; Wt 77.7 kg
[~2023-01-08 11:45] MED LIST changes: +ACET125T3 PO; +MIRT-138 PO; -MIRT15TA3 PO
[2023-01-08 12:04] VITALS: TEMP 97.7
[2023-01-08] MEDS ORDERED: HYDROcodone/acetaminophen 10/325mg tab PO ONE (15:35)
[2023-01-08] MEDS ORDERED: ondansetron 4mg rapidly disintigrating tab PO ONE (15:40)
[2023-01-08] MEDS ORDERED: oxyCODONE IR 5mg (immed. release) tablet PO ONE (15:40)
[2023-01-08 16:04] VITALS: BP 146/92; PULSE 89; RESP 17; O2SAT 98
== END 2023-01-08 16:06 | disposition home or self-care (01) ==
LOC: ER 11:46
DX: M25.552 Pain in left hip (principal); M25.562 Pain in left knee; R11.10 Vomiting, unspecified; G43.909 Migraine, unspecified, not intractable, without status migrainosus; I10 Essential (primary) hypertension; G89.29 Other chronic pain; F17.200 Nicotine dependence, unspecified, uncomplicated; Z86.14 Personal history of Methicillin resistant Staphylococcus aureus infection; Z90.49 Acquired absence of other specified parts of digestive tract; Z90.710 Acquired absence of both cervix and uterus; Z56.0 Unemployment, unspecified; Z86.73 Personal history of transient ischemic attack (TIA), and cerebral infarction without residual deficits; Z88.1 Allergy status to other antibiotic agents; Z88.0 Allergy status to penicillin; Z88.6 Allergy status to analgesic agent; Z91.018 Allergy to other foods; Z79.899 Other long term (current) drug therapy
CPT/HCPCS: 73502; 73560; 99284

== ENCOUNTER 2023-02-10 13:23 | Emergency (ER) | payer MEDICAID ==
[~2023-02-10] VITALS: Ht 144.8 cm; Wt 77.7 kg
[2023-02-10 14:27] LABS: BASOPHILS # (AUTO) 0.1 X10'3 (0-0.2); BASOPHILS % (AUTO) 1.3 % (0-1); EOSINOPHILS # (AUTO) 0.2 X10'3 (0-0.9); EOSINOPHILS % (AUTO) 1.5 % (0-6); HEMATOCRIT 45.4 % (35.0-45.0); LYMPHOCYTES # (AUTO) 3.8 X10'3 (1.1-4.8); LYMPHOCYTES % (AUTO) 33.8 % (21-51); MEAN CORPUSCULAR HEMOGLOBIN 32.6 PG (27.0-31.0); MEAN CORPUSCULAR HGB CONC 33.1 g/dL (33.0-36.5); MEAN CORPUSCULAR VOLUME 98.6 FL (78-98); MEAN PLATELET VOLUME 7.7 FL (7.4-10.4); MONOCYTES # (AUTO) 0.5 X10'3 (0-0.9); MONOCYTES % (AUTO) 4.6 % (2-12); NEUTROPHILS # (AUTO) 6.6 X10'3 (1.8-7.7); NEUTROPHILS % (AUTO) 58.8 % (42-75); PLATELET COUNT 259 X10'3 (140-440); RED BLOOD COUNT 4.61 X10'6 (4.20-5.60); RED CELL DISTRIBUTION WIDTH 14.5 % (11.5-14.5); WHITE BLOOD COUNT 11.2 X10'3 (4.5-11.0)
[2023-02-10 14:31] LABS: ALANINE AMINOTRANSFERASE 28 U/L (12-78); ALBUMIN 3.6 G/DL (3.4-5.0); ALBUMIN/GLOBULIN RATIO 0.9 (1.1-1.5); ALKALINE PHOSPHATASE 101 IU/L (46-116); ANION GAP 6 (8-16); ASPARTATE AMINO TRANSFERASE 15 U/L (10-37); BILIRUBIN,TOTAL 0.3 MG/DL (0.1-1.0); BLOOD UREA NITROGEN 16 MG/DL (7-18); BUN/CREATININE RATIO 19.8 (10.0-20.0); CALCIUM 9.3 MG/DL (8.5-10.1); CHLORIDE 106 MMOL/L (99-107); CREATININE 0.81 MG/DL (0.40-0.90); GLUCOSE 133 MG/DL (70-104); LIPASE < 50 U/L (73-393); POTASSIUM 4.2 MMOL/L (3.5-5.1); SODIUM 140 MMOL/L (135-145); TOTAL CARBON DIOXIDE 28.2 MMOL/L (24-32); TOTAL PROTEIN 7.4 G/DL (6.4-8.2); eCRCL 45 ML/MIN; eGFR 72 ML/MIN
[2023-02-10 16:30] VITALS: TEMP 97.5
[2023-02-11] MEDS ORDERED: normal saline 1000ml 1,000 ML IV SCH (00:15)
[2023-02-11] MEDS ORDERED: ondansetron/PF 4mg/2ml inj IV ONE (00:15)
[2023-02-11] MEDS ORDERED: pantoprazole 40mg IV 80 MG in normal saline 100ml IV soln 100 ML IV ONE (00:15)
[2023-02-11] MEDS ORDERED: HYDROmorphone inj. 0.5 MG/0.5 ML DISP.SYRIN IV ONE (00:15)
[2023-02-11] MEDS ORDERED: pantoprazole 40MG/NS 100ML BAG 100 ML IV SCH (00:19)
[2023-02-11] MEDS ORDERED: iohexol 300mg/ml 100ml inj. ONE (00:34)
[2023-02-11 01:00] VITALS: BP 165/107; PULSE 96; O2SAT 94
[2023-02-11 01:05] VITALS: RESP 16
--- NOTE | 2023-02-11 02:33 | NUR ---
pt upset and angry with and catarino demanded her iv be removed and patient left before treatment complete.
== END 2023-02-11 02:39 | disposition left against medical advice (07) ==
LOC: ER 13:24
DX: R10.13 Epigastric pain (principal); G43.909 Migraine, unspecified, not intractable, without status migrainosus; I10 Essential (primary) hypertension; Z88.1 Allergy status to other antibiotic agents; Z88.6 Allergy status to analgesic agent; Z88.0 Allergy status to penicillin; Z91.010 Allergy to peanuts; Z79.899 Other long term (current) drug therapy; Z90.49 Acquired absence of other specified parts of digestive tract; Z90.710 Acquired absence of both cervix and uterus
CPT/HCPCS: 36415; 74177; 80053; 83690; 85025; 86140; 96374; 96375; 99285; C9113; J1170; J2405; J3490; J7030; Q9967

== ENCOUNTER 2023-03-11 13:00 | Emergency (ER) | payer MEDICAID ==
[~2023-03-11] VITALS: Ht 147.3 cm; Wt 82.0 kg
[2023-03-11 13:20] VITALS: BP 131/93; PULSE 96; RESP 16; TEMP 98.8; O2SAT 98
[2023-03-11 13:53] LABS: URINE HCG NEGATIVE (NEG)
[2023-03-11 13:56] LABS: BILIRUBIN,URINE NEGATIVE (Neg); CLARITY,URINE SLIGHTLY CLOUDY (Clear); COLOR,URINE YELLOW (Yellow); GLUCOSE, URINE NEGATIVE (Neg); KETONES,URINE TRACE mg/dl (Neg); LEUKOCYTE ESTERASE ,URINE TRACE (Neg); NITRITES, URINE NEGATIVE (Neg); OCCULT BLOOD,URINE NEGATIVE (Neg); PROTEIN,URINE TRACE mg/dl (Neg); UROBILINOGEN,URINE 0.2 E.U/dL (0.2-1.0)
[2023-03-11 14:00] LABS: UA COLLECTION TYPE CLN CATCH MIDSTREAM
[2023-03-11 14:08] LABS: BACTERIA,URINE 2+ /HPF (Neg)
[2023-03-11 14:09] LABS: MUCUS STRANDS FEW /LPF (Neg); SQUAMOUS EPITHELIAL CELL,UR MODERATE /LPF (FEW)
[2023-03-11 14:43] LABS: BASOPHILS # (AUTO) 0.1 X10'3 (0-0.2); EOSINOPHILS # (AUTO) 0.2 X10'3 (0-0.9); EOSINOPHILS % (AUTO) 1.8 % (0-6); HEMATOCRIT 43.2 % (35.0-45.0); HEMOGLOBIN 14.4 g/dl (12.0-16.0); LYMPHOCYTES # (AUTO) 3.6 X10'3 (1.1-4.8); LYMPHOCYTES % (AUTO) 40.7 % (21-51); MEAN CORPUSCULAR HEMOGLOBIN 32.6 PG (27.0-31.0); MEAN CORPUSCULAR HGB CONC 33.3 g/dL (33.0-36.5); MEAN PLATELET VOLUME 7.5 FL (7.4-10.4); MONOCYTES # (AUTO) 0.5 X10'3 (0-0.9); MONOCYTES % (AUTO) 5.4 % (2-12); NEUTROPHILS # (AUTO) 4.5 X10'3 (1.8-7.7); NEUTROPHILS % (AUTO) 51.1 % (42-75); PLATELET COUNT 243 X10'3 (140-440); RED BLOOD COUNT 4.41 X10'6 (4.20-5.60); WHITE BLOOD COUNT 8.8 X10'3 (4.5-11.0)
[2023-03-11 14:57] LABS: ALANINE AMINOTRANSFERASE 37 U/L (12-78); ALBUMIN 3.6 G/DL (3.4-5.0); ALKALINE PHOSPHATASE 127 IU/L (46-116); ANION GAP 7 (8-16); ASPARTATE AMINO TRANSFERASE 28 U/L (10-37); BILIRUBIN,TOTAL 0.3 MG/DL (0.1-1.0); BLOOD UREA NITROGEN 17 MG/DL (7-18); BUN/CREATININE RATIO 20.2 (10.0-20.0); CALCIUM 9.1 MG/DL (8.5-10.1); CHLORIDE 103 MMOL/L (99-107); CREATININE 0.84 MG/DL (0.40-0.90); GLUCOSE 134 MG/DL (70-104); POTASSIUM 3.7 MMOL/L (3.5-5.1); SODIUM 135 MMOL/L (135-145); TOTAL CARBON DIOXIDE 25.5 MMOL/L (24-32); TOTAL PROTEIN 7.3 G/DL (6.4-8.2); eCRCL 46 ML/MIN; eGFR 69 ML/MIN
[2023-03-11 15:06] LABS: LIPASE 17 U/L (16-77)
[2023-03-11] MEDS ORDERED: HYDROcodone/acetaminophen 10/325mg tab PO ONE (16:10)
[2023-03-11] MEDS ORDERED: NITR100C6 PO (17:30)
--- NOTE | 2023-03-11 17:42 | NUR ---
PT UNWILLING TO WAIT FOR FINAL SET OF DISCHARGE VITALS
== END 2023-03-11 17:43 | disposition home or self-care (01) ==
LOC: ER 13:01
DX: N39.0 Urinary tract infection, site not specified (principal); M54.50 Low back pain, unspecified; I12.0 Hypertensive chronic kidney disease with stage 5 chronic kidney disease or end stage renal disease; N18.9 Chronic kidney disease, unspecified; G43.909 Migraine, unspecified, not intractable, without status migrainosus; Z88.1 Allergy status to other antibiotic agents; Z88.0 Allergy status to penicillin; Z88.6 Allergy status to analgesic agent; Z91.010 Allergy to peanuts; Z91.018 Allergy to other foods; Z79.899 Other long term (current) drug therapy; Z98.890 Other specified postprocedural states; Z90.49 Acquired absence of other specified parts of digestive tract; Z90.710 Acquired absence of both cervix and uterus
CPT/HCPCS: 36415; 80053; 81001; 81025; 83690; 85025; 87088; 99283

== ENCOUNTER 2023-06-20 13:00 | Emergency (ER) | payer MEDICAID ==
[~2023-06-20] VITALS: Ht 149.9 cm; Wt 82.7 kg
[~2023-06-20 13:00] MED LIST changes: +NITR100C6 PO
[2023-06-20 13:29] VITALS: BP 131/85; PULSE 112; RESP 20; O2SAT 95
[2023-06-20] MEDS ORDERED: SULF1TAB45 PO (13:35)
[2023-06-20] MEDS ORDERED: MUPI22OI30 TOP (13:35)
[2023-06-20 13:42] VITALS: TEMP 99.8
== END 2023-06-20 13:43 | disposition home or self-care (01) ==
LOC: ER 13:01
DX: L02.01 Cutaneous abscess of face (principal); G43.909 Migraine, unspecified, not intractable, without status migrainosus; I10 Essential (primary) hypertension; Z88.1 Allergy status to other antibiotic agents; Z88.8 Allergy status to other drugs, medicaments and biological substances; Z79.899 Other long term (current) drug therapy; Z88.0 Allergy status to penicillin
CPT/HCPCS: 99283

== ENCOUNTER 2023-06-25 10:47 | Emergency (ER) | payer MEDICAID ==
[~2023-06-25] VITALS: Ht 149.9 cm; Wt 80.1 kg
[~2023-06-25 10:47] MED LIST changes: +MUPI22OI30 TOP; +SULF1TAB45 PO
[2023-06-25 10:50] VITALS: BP 160/85; PULSE 111; TEMP 99.3; O2SAT 96
[2023-06-25] MEDS ORDERED: HYDROcodone/acetaminophen 10/325mg tab PO ONE (13:30)
[2023-06-25] MEDS ORDERED: LIDOcaine 1% 30ml preserv. free vial IJ ONE (13:30)
[2023-06-25] MEDS ORDERED: LIDOcaine/epinephrine/tetracaine TOPICAL sol 3 ML syringe TOP ONE (13:30)
[2023-06-25 13:46] VITALS: RESP 16
[2023-06-28] MEDS ORDERED: CLIN-97 PO (23:56)
== END 2023-06-25 14:58 | disposition home or self-care (01) ==
LOC: ER 10:48
DX: L02.01 Cutaneous abscess of face (principal); Z79.899 Other long term (current) drug therapy
CPT/HCPCS: 10060; 87070; 87077; 87186; 99283; J3490; A6449

== ENCOUNTER 2023-06-27 13:19 | Emergency (ER) | payer MEDICAID ==
[~2023-06-27] VITALS: Ht 149.9 cm; Wt 77.3 kg
[2023-06-27 13:47] VITALS: BP 147/103; PULSE 99; TEMP 97.8; O2SAT 98
[2023-06-27] MEDS ORDERED: HYDROcodone/acetaminophen 5mg/325mg tablet PO ONE (16:15)
[2023-06-27 16:40] VITALS: RESP 17
[2023-06-27] MEDS ORDERED: bacitracin 15gm ointment TP ONE (16:50)
[2023-06-28] MEDS ORDERED: CLIN-97 PO (23:56)
== END 2023-06-27 17:11 | disposition home or self-care (01) ==
LOC: ER 13:20
DX: K13.0 Diseases of lips (principal); I11.0 Hypertensive heart disease with heart failure; G89.29 Other chronic pain; Z86.14 Personal history of Methicillin resistant Staphylococcus aureus infection; Z88.1 Allergy status to other antibiotic agents; Z88.0 Allergy status to penicillin; Z79.899 Other long term (current) drug therapy; Z88.6 Allergy status to analgesic agent
CPT/HCPCS: 10060; 99283; J7030; A6449

== ENCOUNTER 2023-09-15 09:32 | Emergency (ER) | payer MEDICAID ==
[~2023-09-15] VITALS: Ht 147.3 cm; Wt 82.8 kg
[~2023-09-15 09:32] MED LIST changes: +CLIN-97 PO; -MUPI22OI30 TOP; -SULF1TAB45 PO
[2023-09-15 09:40] VITALS: TEMP 99.1
[2023-09-15 10:33] VITALS: BP 164/110; PULSE 94; RESP 16; O2SAT 96
== END 2023-09-15 10:38 | disposition home or self-care (01) ==
LOC: ER 09:32
DX: M25.512 Pain in left shoulder (principal); G43.909 Migraine, unspecified, not intractable, without status migrainosus; I10 Essential (primary) hypertension; Z88.1 Allergy status to other antibiotic agents; Z88.6 Allergy status to analgesic agent; Z88.0 Allergy status to penicillin; Z91.010 Allergy to peanuts; Z79.899 Other long term (current) drug therapy; Z98.890 Other specified postprocedural states; Z90.710 Acquired absence of both cervix and uterus
CPT/HCPCS: 73000; 73030; 99284; A4565

== ENCOUNTER 2023-10-04 08:52 | Emergency (ER) | payer MEDICAID ==
[~2023-10-04] VITALS: Ht 149.9 cm; Wt 82.3 kg
[~2023-10-04 08:52] MED LIST changes: -OXYC5CAP19 PO; +OXYC5CAP22 PO
[2023-10-04 08:57] VITALS: BP 199/101; PULSE 90; TEMP 98; O2SAT 98
[2023-10-04 10:57] VITALS: RESP 16
[2023-10-04] MEDS: oxyCODONE/APAP 5-325mg tablet PO ONE (10:57)
== END 2023-10-04 11:02 | disposition home or self-care (01) ==
LOC: ER 08:53
DX: S46.812A Strain of other muscles, fascia and tendons at shoulder and upper arm level, left arm, initial encounter (principal); I10 Essential (primary) hypertension; Z88.8 Allergy status to other drugs, medicaments and biological substances; Z88.0 Allergy status to penicillin; Z79.899 Other long term (current) drug therapy; Z86.73 Personal history of transient ischemic attack (TIA), and cerebral infarction without residual deficits; X58.XXXA Exposure to other specified factors, initial encounter; Y93.89 Activity, other specified; Y92.89 Other specified places as the place of occurrence of the external cause; Y99.8 Other external cause status
CPT/HCPCS: 73030; 99283

== ENCOUNTER 2023-11-03 15:22 | Outpatient (CLI) | payer MEDICAID | END 2023-11-03 23:59 | disposition home or self-care (01) | LOC: MRI 15:22 | PROVIDERS: ATTEND Orthopaedic Surgery | DX: M19.012 Primary osteoarthritis, left shoulder (principal); M85.812 Other specified disorders of bone density and structure, left shoulder; M25.512 Pain in left shoulder | CPT/HCPCS: 73221 ==

== ENCOUNTER 2024-02-29 11:13 | Emergency (ER) | payer MEDICAID ==
[~2024-02-29] VITALS: Ht 149.9 cm; Wt 81.7 kg
[~2024-02-29 11:13] MED LIST changes: +ONDA-245 PO; -ONDA8TAB13 PO
[2024-02-29] MEDS: metoclopramide 5 mg/ml inj IV ONE (14:00)
[2024-02-29] MEDS: normal saline 1000ML IV soln IVB ONE ×2 (14:00→15:35)
[2024-02-29] MEDS ORDERED: LORazepam 2 mg/ml vial IV ONE (14:00)
[2024-02-29 14:50] LABS: BILIRUBIN,URINE NEGATIVE (Neg); CLARITY,URINE CLOUDY (Clear); COLOR,URINE YELLOW (Yellow); GLUCOSE, URINE NEGATIVE (Neg); KETONES,URINE NEGATIVE (Neg); LEUKOCYTE ESTERASE ,URINE NEGATIVE (Neg); NITRITES, URINE NEGATIVE (Neg); OCCULT BLOOD,URINE TRACE-INTACT (Neg); PROTEIN,URINE TRACE mg/dl (Neg); UROBILINOGEN,URINE 0.2 E.U/dL (0.2-1.0)
[2024-02-29 14:55] LABS: CHLORIDE 103 MMOL/L (99-107); CREATININE 0.81 MG/DL (0.40-0.90); GLUCOSE 87 MG/DL (70-104); POTASSIUM 3.5 MMOL/L (3.5-5.1); SODIUM 141 MMOL/L (135-145); eCRCL 50 ML/MIN; eGFR 72 ML/MIN
[2024-02-29 15:00] LABS: ALBUMIN 3.5 G/DL (3.4-5.0); ANION GAP 9 (8-16); BLOOD UREA NITROGEN 12 MG/DL (7-18); BUN/CREATININE RATIO 14.8 (10.0-20.0); CALCIUM 9.1 MG/DL (8.5-10.1); TOTAL CARBON DIOXIDE 29.1 MMOL/L (24-32)
[2024-02-29 15:12] LABS: BASOPHILS # (AUTO) 0.1 X10'3 (0-0.2); BASOPHILS % (AUTO) 0.7 % (0-1); EOSINOPHILS # (AUTO) 0.1 X10'3 (0-0.9); EOSINOPHILS % (AUTO) 0.7 % (0-6); HEMOGLOBIN 15.5 g/dl (12.0-16.0); LYMPHOCYTES # (AUTO) 3.7 X10'3 (1.1-4.8); LYMPHOCYTES % (AUTO) 27.9 % (21-51); MEAN CORPUSCULAR HEMOGLOBIN 32.8 PG (27.0-31.0); MEAN CORPUSCULAR HGB CONC 33.6 g/dL (33.0-36.5); MEAN CORPUSCULAR VOLUME 97.6 FL (78-98); MEAN PLATELET VOLUME 7.6 FL (7.4-10.4); MONOCYTES # (AUTO) 0.5 X10'3 (0-0.9); MONOCYTES % (AUTO) 4.1 % (2-12); NEUTROPHILS # (AUTO) 8.9 X10'3 (1.8-7.7); NEUTROPHILS % (AUTO) 66.6 % (42-75); PLATELET COUNT 308 X10'3 (140-440); RED BLOOD COUNT 4.72 X10'6 (4.20-5.60); WHITE BLOOD COUNT 13.4 X10'3 (4.5-11.0)
[2024-02-29 15:19] LABS: UA COLLECTION TYPE CLN CATCH MIDSTREAM
[2024-02-29 15:20] LABS: MUCUS STRANDS MODERATE /LPF (Neg); SQUAMOUS EPITHELIAL CELL,UR MANY /LPF (FEW)
[2024-02-29 15:21] LABS: BACTERIA,URINE 1+ /HPF (Neg); YEAST MODERATE /HPF (NEGATIVE)
[2024-02-29 15:22] LABS: RBC,URINE 0-2 /HPF (0-2)
[2024-02-29] MEDS: HYDROmorphone inj. 0.5 MG/0.5 ML DISP.SYRIN IV PRN (15:27)
[2024-02-29] MEDS: LORazepam 2 mg/ml vial IV ONE (15:29)
[2024-02-29] MEDS: ondansetron/PF 4mg/2ml inj IV ONE (15:34)
[2024-02-29] MEDS: diphenhydrAMINE 50 mg/ml inj IV ONE (15:34)
[2024-02-29] MEDS: dexamethasone sod phosphate 10mg/ml inj IV STA (15:34)
[2024-02-29 16:33] VITALS: BP 146/80; PULSE 98; RESP 16; O2SAT 95
== END 2024-02-29 16:46 | disposition home or self-care (01) ==
LOC: ER 11:13
DX: G43.909 Migraine, unspecified, not intractable, without status migrainosus (principal); I48.91 Unspecified atrial fibrillation; I10 Essential (primary) hypertension; F17.210 Nicotine dependence, cigarettes, uncomplicated; Z88.1 Allergy status to other antibiotic agents; Z88.0 Allergy status to penicillin; Z88.6 Allergy status to analgesic agent; Z88.5 Allergy status to narcotic agent; Z79.899 Other long term (current) drug therapy; Z86.711 Personal history of pulmonary embolism; Z86.73 Personal history of transient ischemic attack (TIA), and cerebral infarction without residual deficits; Z90.49 Acquired absence of other specified parts of digestive tract; Z90.710 Acquired absence of both cervix and uterus; Z98.890 Other specified postprocedural states
CPT/HCPCS: 36415; 80048; 81001; 84145; 85025; 96361; 96374; 96375; 99284; J1100; J1171; J1200; J2060; J2405; J7030

== ENCOUNTER 2024-09-26 19:09 | Emergency (ER) | payer MEDICAID ==
[~2024-09-26] VITALS: Ht 144.8 cm; Wt 81.4 kg
[2024-09-26 19:11] VITALS: TEMP 98.6
--- NOTE | 2024-09-26 19:17 | Physician Documentation ---
History of Present Illness ~ Chief Complaint: Mechanical Fall Stated Complaint: HIP/KNEE PAIN Time Seen by MD: 19:11 Primary Medical Doctor: MIGUEL WAY HPI 64-year-old female presents to the ED with a complaint of left hip pain left knee pain and left ankle pain after tripping down two cement stairs when her dog ran into her this evening. States she was having difficulty ambulating also adds that she has a full knee prosthesis on the left side. Day of Onset: Sep 26, 2024 Medication Reconciliation Allergies: Coded Allergies: Cephalexin Monohydrate (Unverified Allergy, Severe, ANAPHYLAXIS, 09/26/24) NSAIDS (Non-Steroidal Anti-Inflamma (Verified Allergy, Severe, ANAPHYLAXIS, 09/26/24) Penicillins (Unverified Allergy, Severe, ANAPHYLAXIS, 09/26/24) aspirin (Unverified Allergy, Severe, anaphylaxis, 09/26/24) celecoxib (Unverified Allergy, Severe, ANAPHYLAXIS, 09/26/24) ibuprofen (Unverified Allergy, Severe, anaphylaxis, 02/29/24) ketorolac tromethamine (Unverified Allergy, Severe, ANAPHYLAXIS, 09/15/23) peanut (Verified Allergy, Severe, 09/26/24) ANAPHYLAXIS prochlorperazine (Unverified Allergy, Severe, DYSTONIC RXN, 09/26/24) droperidol (Unverified Allergy, Intermediate, 09/15/23) tomato (Verified Allergy, Mild, 09/26/24) PUFFY LIPS metoclopramide (Verified Allergy, Unknown, 02/29/24) prochlorperazine maleate (Unverified Adverse Reaction, Severe, DYSTONIA, 09/26/24) Uncoded Allergies: ONION (Allergy, Severe, anaphylaxis, 06/06/12) Scheduled Acetazolamide (Acetazolamide), 1 TAB PO Q12H Clindamycin HCL* (Clindamycin HCL*), 1 CAP PO Q8H Mirtazapine (Remeron), 1 TAB PO HS, (Reported) Nitrofurantoin Monohyd/M-Cryst (Macrobid 100 mg Capsule), 1 CAP PO Q12H Ondansetron 8mg ODT (Ondansetron Odt), 1 TAB PO Q6H, (Reported) Ondansetron HCl (Ondansetron HCl), 1 TAB PO Q6H PRN Oxycodone HCl (Oxycodone HCl), 2 CAP PO QID PRN, (Reported) Quetiapine Fumarate (Seroquel), 150 MG PO HS, (Reported) Past Medical History 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*, CVA/TIA/Stroke, Headache, Migraine, Glaucoma, Atrial Fibrillation, Hypertension, Bronchitis, Pulmonary Embolism, Hernia, Renal Disease, Chronic Pain, Extremity Fracture, MRSA Abscess, *PSYCH* Past Surgical History: abdominal surgery, appendectomy, cholecystectomy, c- section, hysterectomy, orthopedic surgeries, other Other Past Surgical History: Hernia repair Patient History: (CAD) Coronary arteriosclerosis (CHF) Congestive heart failure (Cancer) Malignant carcinoid tumor FATHER MOTHER (DM Type 2) Diabetes mellitus type 2 Alcohol Use: None Drug Use: none Lives with: Other Lives In: Home Occupation: unemployed Review of Systems All Other Systems at this time: Reviewed and Negative ROS As stated above in the HPI, otherwise all systems are reviewed and negative. Physical Exam Vital Signs: Temperature: 98.6, Source: Oral, Heart Rate: 99, Respiratory Rate: 19, BP: 185/107, Pulse Oximetry: 95, Weight: 81.360 Oxygen Flow Rate: 0 Physical Exam General: Alert, no apparent distress. Extremities: no deformity. no Notable in internal or external rotation of the left lower extremity. No obvious swelling pain with range of motion however Neurologic: Oriented x4. Psychiatric: Normal mood and affect. Skin: Normal color, warm and dry. No edema, no ecchymosis. Progress Results/Orders Results/Orders Orders - TRA REYES ASPHALT DISTRIBUTOR TENDER Ankle, Complete(3vw Min) (09/26/24 19:55) Hip Unilateral 2 Views (09/26/24 20:10) Knee, Complete (09/26/24 20:11) Completed Orders - TRA REYES ASPHALT DISTRIBUTOR TENDER Ankle, Complete(3vw Min) (09/26/24 19:55) Hip Unilateral 2 Views (09/26/24 20:10) Knee, Complete (09/26/24 20:11) Hydrocodone/Apap 10/325 (Garland 10/325mg (09/26/24 19:20) Medications Received in ER Medications (Trade) Dose Ordered Sig/Zana Route PRN Reason Start Time Stop Time Status Last Admin Dose Admin (Garland 10/325mg tab) 1 tab ONCE ONCE PO 09/26/24 19:20 09/26/24 19:21 DC 09/26/24 19:25 1 TAB Vital Signs 09/26/24 09/26/24 09/26/24 09/26/24 19:11 19:25 19:31 19:35 Temp 98.6 Pulse 99 95 Resp 19 18 18 B/P (MAP) 185/107 179/113 (135) Pulse Ox 95 96 O2 Flow Rate 0 0 09/26/24 20:11 Resp 16 Medical Decision Making Findings Per my interpretation of patient's hip, knee, left ankle x-rays I did not find any signs of acute fracture displacement dislocation or subluxation.. Patient received pain medicine in the ED and before the official radiologist's read came back she states that she was ready to go home.. Patient is able bodied and able to make her own decisions.. Presents as a safe discharge Differential Dx:Considerations: Include: Avascular necrosis, Arthritis, Arthritis-Rheumatoid, Arthritis-Septic, Bursitis, Contusion, Dislocation, DJD, Fracture-femur, Fracture-hip, Fracture-open, Fracture-pelvis, Gout, Hernia, [id number] dz., Neurovascular injury, Slip capital femoral epip, Sprain, Transient synovitis, Other Departure Disposition: 01 HOME / SELF CARE / HOMELESS Impression: Primary Impression: Dislocation of hip joint prosthesis Additional Impression: Knee pain Condition: Improved Discharge Instructions: Fall Prevention in the Home, Adult, [id number] Referrals: NO PRIMARY CARE PROVIDER (PCP) Education Educated: Patient Educated regarding: diagnosis Signature Scribe Signature: g Attestation: The note accurately reflects work and decisions made by me.Tra Reyes - MICHELLE 09/26/24 19:16 TRA REYES NP Sep 26, 2024 19:17
[2024-09-26] MEDS: HYDROcodone/acetaminophen 10/325mg tab PO ONE (19:25)
[2024-09-26 19:35] VITALS: BP 179/113; PULSE 95; O2SAT 96
[2024-09-26 20:11] VITALS: RESP 16
--- NOTE | 2024-09-26 22:46 | RADIOLOGY REPORT ---
Clinical History fall Comparison None Technique: left hip 3 views Without Contrast BEATRICELEW, [id number] Findings: Bones: No displaced fracture. medullary isela in the distal femur. Soft tissues: No swelling. No foreign body Joints: Visualized joints are within normal limits. Impression: 1. No acute fracture or dislocation. This report was electronically signed by Erick Lopez MD on 09/26/2024 10:43:46 PM.
--- NOTE | 2024-09-26 22:48 | RADIOLOGY REPORT ---
Clinical History fall Comparison None Technique: left ankle 3 views Without Contrast BEATRICELEW, [id number] Findings: Bones: No displaced fracture. medullary iseal in the proximal tibia. Soft tissues: No swelling. No foreign body Joints: Visualized joints are within normal limits. Impression: 1. No acute fracture or dislocation. This report was electronically signed by Erick Lopez MD on 09/26/2024 10:45:26 PM.
--- NOTE | 2024-09-26 22:56 | RADIOLOGY REPORT ---
Clinical History fall Comparison None Technique: 3 views left knee Without Contrast BEATRICELEW, [id number] FINDINGS:IMPRESSION: There is total knee replacement hardware which appears intact and well seated. No evidence of acute fracture or dislocation identified on this examination. This report was electronically signed by Kyle Finnegan MD on 09/26/2024 10:53:16 PM.
== END 2024-09-26 21:23 | disposition home or self-care (01) ==
LOC: ER 19:10
DX: T84.021A Dislocation of internal left hip prosthesis, initial encounter (principal); M25.572 Pain in left ankle and joints of left foot; M25.562 Pain in left knee; I11.0 Hypertensive heart disease with heart failure; I25.10 Atherosclerotic heart disease of native coronary artery without angina pectoris; I50.9 Heart failure, unspecified; I48.91 Unspecified atrial fibrillation; G43.909 Migraine, unspecified, not intractable, without status migrainosus; Z86.73 Personal history of transient ischemic attack (TIA), and cerebral infarction without residual deficits; Z88.0 Allergy status to penicillin; Z88.6 Allergy status to analgesic agent; Z90.49 Acquired absence of other specified parts of digestive tract; Z90.710 Acquired absence of both cervix and uterus; Z98.890 Other specified postprocedural states; W54.1XXA Struck by dog, initial encounter; Y93.89 Activity, other specified; Y92.89 Other specified places as the place of occurrence of the external cause; Y99.8 Other external cause status
CPT/HCPCS: 73502; 73564; 73610; 99284

== ENCOUNTER 2024-11-28 15:41 | Emergency (ER) | payer MEDICAID ==
[~2024-11-28] VITALS: Ht 147.3 cm; Wt 80.7 kg
[2024-11-28 15:56] VITALS: BP 174/102; PULSE 101; RESP 20; O2SAT 96
--- NOTE | 2024-11-28 16:38 | Physician Documentation ---
History of Present Illness ~ Chief Complaint: Bite-insect Stated Complaint: SPIDER BITE Time Seen by MD: 16:43 Primary Medical Doctor: MIGUEL WAY HPI 64-year-old female presents to the ED with a complaint of a bug bite on her left neck. She states she has been on Bactrim for the last three days and has increased pain and swelling. States it the bite or abscess on her neck the continues to hurt in his not draining. Denies any fever but reports general malaise Day of Onset: Nov 28, 2024 Tetanus within 5 years?: Yes Medication Reconciliation Allergies: Coded Allergies: Cephalexin Monohydrate (Unverified Allergy, Severe, ANAPHYLAXIS, 11/28/24) NSAIDS (Non-Steroidal Anti-Inflamma (Verified Allergy, Severe, ANAPHYLAXIS, 09/26/24) Penicillins (Unverified Allergy, Severe, ANAPHYLAXIS, 09/26/24) aspirin (Unverified Allergy, Severe, anaphylaxis, 09/26/24) celecoxib (Unverified Allergy, Severe, ANAPHYLAXIS, 09/26/24) ibuprofen (Unverified Allergy, Severe, anaphylaxis, 02/29/24) ketorolac tromethamine (Unverified Allergy, Severe, ANAPHYLAXIS, 09/15/23) peanut (Verified Allergy, Severe, 09/26/24) ANAPHYLAXIS prochlorperazine (Unverified Allergy, Severe, DYSTONIC RXN, 09/26/24) droperidol (Unverified Allergy, Intermediate, 09/15/23) tomato (Verified Allergy, Mild, 09/26/24) PUFFY LIPS metoclopramide (Verified Allergy, Unknown, 02/29/24) prochlorperazine maleate (Unverified Adverse Reaction, Severe, DYSTONIA, 09/26/24) Uncoded Allergies: ONION (Allergy, Severe, anaphylaxis, 06/06/12) Scheduled Acetazolamide (Acetazolamide), 1 TAB PO Q12H Clindamycin HCL* (Clindamycin HCL*), 1 CAP PO Q8H Mirtazapine (Remeron), 1 TAB PO HS, (Reported) Nitrofurantoin Monohyd/M-Cryst (Macrobid 100 mg Capsule), 1 CAP PO Q12H Ondansetron 8mg ODT (Ondansetron Odt), 1 TAB PO Q6H, (Reported) Ondansetron HCl (Ondansetron HCl), 1 TAB PO Q6H PRN Oxycodone HCl (Oxycodone HCl), 2 CAP PO QID PRN, (Reported) Quetiapine Fumarate (Seroquel), 150 MG PO HS, (Reported) Past Medical History Past Medical History: *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*, CVA/TIA/Stroke, Headache, Migraine, Glaucoma, Atrial Fibrillation, Hypertension, Bronchitis, Pulmonary Embolism, Hernia, Renal Disease, Chronic Pain, Extremity Fracture, MRSA Abscess, *PSYCH* Past Surgical History: abdominal surgery, appendectomy, cholecystectomy, c- section, hysterectomy, orthopedic surgeries, other Other Past Surgical History: Hernia repair Patient History: (CAD) Coronary arteriosclerosis (CHF) Congestive heart failure (Cancer) Malignant carcinoid tumor FATHER MOTHER (DM Type 2) Diabetes mellitus type 2 Alcohol Use: None Drug Use: none Lives with: Other Lives In: Home Occupation: unemployed Review of Systems All Other Systems at this time: Reviewed and Negative ROS As stated above in the HPI, otherwise all systems are reviewed and negative. Physical Exam Vital Signs: Temperature: 98.0, Source: Temporal, Heart Rate: 101, Respiratory Rate: 20, BP: 174/102, Pulse Oximetry: 96, Weight: 80.650 Physical Exam General: Alert, no apparent distress. Neck: Full range of motion. left side 2-3cm abscess Respiratory: Lungs clear, no respiratory distress. Neurologic: Oriented x4. Psychiatric: Normal mood and affect. Skin: Normal color, warm and dry. No edema, no ecchymosis. Procedures I & D Procedure : Anesthesia: Lidocaine Blade Size: 11 Prep/Supplies: dressing applied Incision: pus drained Tolerated Procedure Well?: yes, no complications Progress Results/Orders Results/Orders Orders - SANJU REYES TIMBER INCISOR OPERATOR Laceration/I&D Tray Set Up (11/28/24 ) Completed Orders - SANJU REYES TIMBER INCISOR OPERATOR Lidocaine 1% 30ml Vial (Xylocaine 1% Via (11/28/24 16:36) Vital Signs 11/28/24 11/28/24 15:56 17:41 Temp 98.0 98.0 Pulse 101 Resp 20 B/P (MAP) 174/102 Pulse Ox 96 Medical Decision Making Findings small I and D on the patient's developing abscess on her left neck. Patient tolerated procedure well I did not appreciate large amount of purulent discharge however I did open up to allow for drainage Last start her on Keflex however she is allergic to that and she says that doxycycline hurts her stomach Therefore I am going to have her continue taking sulfa and keep the area clean and dry Departure Disposition: 01 HOME / SELF CARE / HOMELESS Impression: Primary Impression: Cellulitis Additional Impression: Insect bites Condition: Stable Discharge Instructions: Cellulitis, Adult Additional Instructions: continue taking bactrim Referrals: NO PRIMARY CARE PROVIDER (PCP) Education Educated: Patient Educated regarding: diagnosis Signature Scribe Signature: r Attestation: Scribed for Sanju Reyes Shaper Operator by Sanju Doty NP . 11/28/24 22:56 SANJU REYES NP Nov 28, 2024 16:38
[2024-11-28] MEDS: LIDOcaine 1% 30ml preserv. free vial SQ STA (17:09)
[2024-11-28 17:41] VITALS: TEMP 98
== END 2024-11-28 17:42 | disposition home or self-care (01) ==
LOC: ER 15:44
DX: L03.221 Cellulitis of neck (principal); I25.10 Atherosclerotic heart disease of native coronary artery without angina pectoris; I48.91 Unspecified atrial fibrillation; I11.0 Hypertensive heart disease with heart failure; I50.9 Heart failure, unspecified; G43.909 Migraine, unspecified, not intractable, without status migrainosus; Z86.73 Personal history of transient ischemic attack (TIA), and cerebral infarction without residual deficits; Z91.018 Allergy to other foods; Z88.1 Allergy status to other antibiotic agents; Z88.0 Allergy status to penicillin; Z88.6 Allergy status to analgesic agent; Z98.890 Other specified postprocedural states
CPT/HCPCS: 10060; 99283

== ENCOUNTER 2025-03-04 12:44 | Emergency (ER) | payer MEDICAID ==
[~2025-03-04] VITALS: Ht 149.9 cm; Wt 77.6 kg
[~2025-03-04 12:44] MED LIST changes: +CLIN-224 PO; -CLIN-97 PO
[2025-03-04 12:50] VITALS: TEMP 97.8
[2025-03-04 14:17] LABS: MEAN PLATELET VOLUME 7.5 FL (7.4-10.4); RED CELL DISTRIBUTION WIDTH 14.9 % (11.5-14.5)
[2025-03-04 14:50] LABS: CREATININE 0.95 MG/DL (0.40-0.90); TOTAL CARBON DIOXIDE 25.8 MMOL/L (24-32); eCRCL 42 ML/MIN; eGFR 60 ML/MIN
--- NOTE | 2025-03-04 17:41 | Physician Documentation ---
History of Present Illness Chief Complaint: Abdominal Pain Stated Complaint: ABD PAIN Time Seen by MD: 17:00 Primary Medical Doctor: MIGUEL WAY HPI 64-year-old female presents to the ED with four days of abdominal pain. States she is unable to tolerate food unable to take pain medication. Has not she has a history of hernias. She feels a large bulge in the umbilical region. denies any fevers but does report ongoing vomiting. States that she is unable to get to any comfortable position even when laying flat she is in pain. HX cholecystectomy Still having bowel movements Day of Onset: Mar 04, 2025 Medication Reconciliation Allergies: Coded Allergies: Cephalexin Monohydrate (Unverified Allergy, Severe, ANAPHYLAXIS, 03/04/25) NSAIDS (Non-Steroidal Anti-Inflamma (Verified Allergy, Severe, ANAPHYLAXIS, 03/04/25) Penicillins (Unverified Allergy, Severe, ANAPHYLAXIS, 03/04/25) aspirin (Unverified Allergy, Severe, anaphylaxis, 03/04/25) celecoxib (Unverified Allergy, Severe, ANAPHYLAXIS, 03/04/25) ibuprofen (Unverified Allergy, Severe, anaphylaxis, 03/04/25) ketorolac tromethamine (Unverified Allergy, Severe, ANAPHYLAXIS, 03/04/25) peanut (Verified Allergy, Severe, 03/04/25) ANAPHYLAXIS prochlorperazine (Unverified Allergy, Severe, DYSTONIC RXN, 03/04/25) droperidol (Unverified Allergy, Intermediate, 03/04/25) tomato (Verified Allergy, Mild, 03/04/25) PUFFY LIPS metoclopramide (Verified Allergy, Unknown, 03/04/25) prochlorperazine maleate (Unverified Adverse Reaction, Severe, DYSTONIA, 03/04/25) Uncoded Allergies: ONION (Allergy, Severe, anaphylaxis, 06/06/12) Scheduled Mirtazapine (Remeron), 1 TAB PO HS, (Reported) Oxycodone HCl (Oxycodone HCl), 2 CAP PO QID PRN, (Reported) Quetiapine Fumarate (Seroquel), 150 MG PO HS, (Reported) Discontinued Medications Acetazolamide (Acetazolamide), 1 TAB PO Q12H Discontinued Reason: patient no longer taking Clindamycin HCL* (Clindamycin HCL*), 1 CAP PO Q8H Discontinued Reason: patient no longer taking Nitrofurantoin Monohyd/M-Cryst (Macrobid 100 mg Capsule), 1 CAP PO Q12H Discontinued Reason: patient no longer taking Ondansetron 8mg ODT (Ondansetron Odt), 1 TAB PO Q6H, (Reported) Discontinued Reason: patient no longer taking Ondansetron HCl (Ondansetron HCl), 1 TAB PO Q6H PRN Discontinued Reason: patient no longer taking Past Medical History Past Medical History: *ENV[employer]ON[employer]*, CVA/TIA/Stroke, Headache, Migraine, Glaucoma, Atrial Fibrillation, Hypertension, Bronchitis, Pulmonary Embolism, Hernia, Renal Disease, Chronic Pain, Extremity Fracture, MRSA Abscess, *PSYCH* Past Surgical History: abdominal surgery, appendectomy, cholecystectomy, c- section, hysterectomy, orthopedic surgeries, other Other Past Surgical History: Hernia repair Patient History: (CAD) Coronary arteriosclerosis (CHF) Congestive heart failure (Cancer) Malignant carcinoid tumor FATHER MOTHER (DM Type 2) Diabetes mellitus type 2 Alcohol Use: None Drug Use: none Lives with: Other Lives In: Home Occupation: unemployed Physical Exam Vital Signs: Temperature: 97.8, Source: Temporal, Heart Rate: 115, Respiratory Rate: 18, BP: 120/98, Pulse Oximetry: 99, Weight: 77.600 Oxygen Flow Rate: 0 Physical Exam General: Alert, guarding HEENT: PERRL, EOMI, no injection, moist mucous membranes. Neck: Full range of motion. Chest: No accessory muscle use. Cardiovascular: Regular rate and rhythm, no murmurs. Gastrointestinal: Soft, highly tender to the mid epigastric region, umbilical region bowel sounds present Neurologic: Oriented x4. Psychiatric: Normal mood and affect. Skin: Normal color, warm and dry. No edema, no ecchymosis. Progress Results/Orders Results/Orders Orders - SANJU REYES PHARMACIST'S AIDE Ultrasound Of Abdomen (03/04/25 17:35) Completed Orders - SANJU REYES PHARMACIST'S AIDE Ondansetron Inj. (Zofran 4mg/2ml Vial) (03/04/25 17:35) Morphine 4mg/Ml Inj. (Morphine Inj.) (03/04/25 17:35) Vital Signs 03/04/25 12:50 Temp 97.8 Pulse 115 Resp 18 B/P (MAP) 120/98 Pulse Ox 99 O2 Flow Rate 0 Laboratory Tests Test 03/04/25 13:57 03/04/25 17:20 White Blood Count 12.8 H Red Blood Count 5.28 Hemoglobin 17.2 H Hematocrit 50.7 H Mean Corpuscular Volume 96.0 Mean Corpuscular Hemoglobin 32.6 H Mean Corpuscular Hemoglobin Concent 33.9 Red Cell Distribution Width 14.9 H Platelet Count 346 Mean Platelet Volume 7.5 Neutrophils (%) (Auto) 66.1 Lymphocytes (%) (Auto) 28.2 Monocytes (%) (Auto) 3.8 Eosinophils (%) (Auto) 0.4 Basophils (%) (Auto) 1.5 H Neutrophils # (Auto) 8.4 H Lymphocytes # (Auto) 3.6 Monocytes # (Auto) 0.5 Eosinophils # (Auto) 0.1 Basophils # (Auto) 0.2 CBC Comment Sodium Level 137 Potassium Level 3.8 Chloride Level 104 Carbon Dioxide Level 25.8 Anion Gap 7 L Blood Urea Nitrogen 12 Creatinine 0.95 H Estimated GFR/1.73 m2 60 BUN/Creatinine Ratio 12.6 Glucose Level 103 Calcium Level 9.5 Total Bilirubin 0.8 Aspartate Amino Transf (AST/SGOT) 17 Alanine Aminotransferase (ALT/SGPT) 32 Alkaline Phosphatase 279 H Total Protein 8.5 H Albumin 3.8 Globulin 4.7 H Albumin/Globulin Ratio 0.8 L Lipase 10 L Chemistry Comments Urine Comment Medical Decision Making Findings I can not currently explain why this patient has abdominal pain that has out of proportion. Her CT findings were mostly unremarkable as well as her ultrasound. Laboratory values indicate out elevated white count. Morphine seems to help her pain but it returns quickly after administration. This time ongoing to request hospitalization or further evaluation For further evaluation and resident consultation who has a side of the patient wanted to go home. Was still have not established as the cause of patient's pain however we did offer hospitalization. This time she is requesting to go home Differential Dx:Considerations: Include: AAA, -Complete, - Incomplete, -Inevitable, -Missed, -Threatened, Abruptio placentae, Angina/PA, Aortic dissection, Appendicitis, Bowel obstruction, Cholangitis, Cholelithasis, Constipation, Diverticular disease, Esophageal rupture, Esophagitis, Gastritis/PUD, Gastroenteritis, GI hemorrhage, Hernia, Hepatitis, Inflammatory BD, Ischemic bowel, Ovarian cyst/torsion, Pancreatitis, PID, Porphyria, Trauma, intraabdominal, Urinary obstruction, Urinary tract infection, Urolithiasis, Other Departure Disposition: 01 HOME / SELF CARE / HOMELESS Impression: Primary Impression: Abdominal pain Condition: Stable Discharge Instructions: Abdominal Pain (Nonspecific) Referrals: NO PRIMARY CARE PROVIDER (PCP) Signature Scribe Signature: e Attestation: Scribed for Sanju Reyes Mixer Driver by Sanju Doty NP . 03/04/25 17:40 SANJU REYES NP Mar 04, 2025 17:41
[2025-03-04 17:42] LABS: LEUKOCYTE ESTERASE ,URINE NEGATIVE (Neg); NITRITES, URINE NEGATIVE (Neg); OCCULT BLOOD,URINE NEGATIVE (Neg)
[2025-03-04 17:48] LABS: URINE HCG NEGATIVE (NEG)
[2025-03-04 17:55] LABS: UA COLLECTION TYPE CLN CATCH MIDSTREAM
[2025-03-04 18:12] LABS: MUCUS STRANDS MODERATE /LPF (Neg); SQUAMOUS EPITHELIAL CELL,UR MODERATE /LPF (FEW); YEAST MODERATE /HPF (NEGATIVE)
[2025-03-04] MEDS: morphine 4 MG/ML inj SYRINge IV ONE ×2 (18:13→20:15)
[2025-03-04] MEDS: ondansetron/PF 4mg/2ml inj IV ONE ×2 (18:14→21:19)
[2025-03-04] MEDS ORDERED: iohexol 300mg/ml 100ml inj. ONE (18:54)
--- NOTE | 2025-03-04 19:18 | RADIOLOGY REPORT ---
CLINICAL HISTORY: hernia umbilical TECHNIQUE: Sonographic imaging was acquired in the area clinical concern in the anterior abdominal wall/umbilical region. COMPARISON: CT CT ABDOMEN PELVIS W/ IV CONTRAST on DOS: 03/04/25, CT CT ABDOMEN PELVIS on DOS: 02/11/23, CT ABDOMEN PELVIS on DOS: 11/09/21 FINDINGS: No definite hernia, mass lesion, or fluid collection is seen. A hyperechoic curvilinear structure in the area of clinical concern may represent hernia mesh from previous surgery. IMPRESSION: No definite sonographic abnormality in the area of clinical concern. Please read above.
--- NOTE | 2025-03-04 19:33 | RADIOLOGY REPORT ---
CLINICAL HISTORY: ABD PAIN TECHNIQUE: CT of the abdomen and pelvis was performed with IV contrast. This exam was performed according to our departmental dose optimization program. Up-to-date CT equipment and radiation dose reduction techniques are utilized as appropriate. CTDI 32 DLP 1464 COMPARISON: CT CT ABDOMEN PELVIS on DOS: 02/11/23, CT ABDOMEN PELVIS on DOS: 11/09/21 FINDINGS: Abdomen/Pelvis: The spleen, pancreas, liver, left kidney, and uterus are grossly unremarkable. The 5 mm right renal AML. The gallbladder is absent. The bladder is not well distended therefore not well evaluated. The irdy-jxwapwe-migw-right adrenal gland thickening. The abdominal aorta is normal in course and caliber. There are mild aortic atherosclerotic calcifications. There is no free intraperitoneal air or fluid. There is no enlarged abdominal or pelvic lymph node. There is no bowel wall thickening or dilatation. There has been anterior abdominal wall repair. No recurrent hernia seen. There is colonic diverticulosis. Other: The imaged lower thorax demonstrates partially imaged probable fat at the intra- atrial septum. There is miniscule pericardial fluid. There is mild atelectatic changes at both lung bases. No acute osseous abnormality is evident. There is 4 mm grade 1 L5-S1 spondylolysis. IMPRESSION: No acute noncontrast CT abnormality in the abdomen or pelvis. Cholecystectomy. Anterior abdominal wall repair. Subcentimeter right renal AML.
[2025-03-04 20:25] VITALS: BP 129/99; PULSE 89; RESP 18; O2SAT 94
== END 2025-03-04 21:21 | disposition home or self-care (01) ==
LOC: ER 12:44
DX: R10.13 Epigastric pain (principal); G89.29 Other chronic pain; G43.909 Migraine, unspecified, not intractable, without status migrainosus; E11.9 Type 2 diabetes mellitus without complications; I48.91 Unspecified atrial fibrillation; I25.10 Atherosclerotic heart disease of native coronary artery without angina pectoris; I11.0 Hypertensive heart disease with heart failure; I50.9 Heart failure, unspecified; Z86.73 Personal history of transient ischemic attack (TIA), and cerebral infarction without residual deficits; Z86.711 Personal history of pulmonary embolism; Z86.14 Personal history of Methicillin resistant Staphylococcus aureus infection; Z88.0 Allergy status to penicillin; Z90.710 Acquired absence of both cervix and uterus; Z90.49 Acquired absence of other specified parts of digestive tract; Z98.890 Other specified postprocedural states; Z91.010 Allergy to peanuts; Z56.0 Unemployment, unspecified; Z88.6 Allergy status to analgesic agent; Z88.8 Allergy status to other drugs, medicaments and biological substances; Z79.899 Other long term (current) drug therapy
CPT/HCPCS: 36415; 76705; 80053; 81001; 81025; 83690; 85025; 87088; 96374; 96375; 96376; 99285; J2270; J2405; Q9967; A6258